=== PATIENT | male | born 1925 | race Two or more races ===

== ENCOUNTER 2017-07-13 10:49 | Inpatient (IN) | payer MEDICARE, OTHER ==
[~2017-07-13] VITALS: Ht 165.1 cm; Wt 58.2 kg
[2017-07-13] MEDS ORDERED: morphine 2 MG INJ IV ONE (11:00)
[2017-07-13] MEDS ORDERED: ONDANSETRON 4 MG INJ IV ONE (11:00)
--- NOTE | 2017-07-13 11:21 | RADRPT ---
PROCEDURE: Chest x-ray CLINICAL INDICATION: Trauma TECHNIQUE: Chest single view COMPARISON: None FINDINGS: The heart is normal in size. The pulmonary vessels are normal in caliber. There is slight enlargem ent and lobulation of the aortic knob which may suggest aneurysmal dilatation. There is abnormal wid ening of the superior mediastinum which in the setting of trauma may suggest mediastinal hematoma. A denopathy or mass is not excluded. Recommend chest CT for further evaluation. Lungs are clear. No pn eumothorax is seen. Costophrenic angles are sharp. Bony thorax is unremarkable. IMPRESSION: 1. Slight prominence of the aortic knob with mild lobulation. This may suggest aneurysmal dilatatio n or traumatic injury.. 2. Widening of the superior mediastinum in the setting of trauma may suggest mediastinal hematoma.. 3. Recommend chest CT for further evaluation 4. Lungs grossly clear. Call report was made to Dr. Cisneros on 07/13/2017 11:18:20 AM RPTAT: HH .Jimbo Myrick MD, Date Time Electronically viewed and signed by .Jimbo Myrick MD, on 07/13/2017 11:20 .W/
[2017-07-13 11:27] LABS: BASOPHILS % 0.4 % (0.0-2.0); EOSINOPHILS # 0.1 10^3/ul (0.0-0.5); EOSINOPHILS % 0.4 % (0.0-7.0); HEMATOCRIT 34.3 % (42.0-52.0); HEMOGLOBIN 10.6 g/dl (14.0-18.0); LYMPHOCYTES # 0.8 10^3/ul (0.8-2.9); LYMPHOCYTES % 7.1 % (15.0-51.0); MEAN CORPUSCULAR HGB CONC 30.9 g/dl (32.0-37.0); MEAN CORPUSCULAR VOLUME 97.2 fl (82.0-101.0); MEAN PLATELET VOLUME 10.2 fl (7.4-10.4); MONOCYTE # 0.9 10^3/ul (0.3-0.9); MONOCYTES % 8.1 % (0.0-11.0); NEUTROPHIL # 9.3 10^3/ul (1.6-7.5); NEUTROPHILS % 83.6 % (39.0-77.0); PLATELET COUNT 327 10^3/UL (140-415); RED BLOOD COUNT 3.53 10^6/ul (4.70-6.10); RED CELL DISTRIBUTION WIDTH 15.7 % (11.5-14.5); WHITE BLOOD COUNT 11.1 10^3/ul (4.8-10.8)
[2017-07-13 11:46] LABS: CALCIUM 8.9 mg/dl (8.4-10.2); CREATININE 3.69 mg/dl (0.61-1.24)
--- NOTE | 2017-07-13 11:48 | RADRPT ---
PROCEDURE: CT Brain without contrast. CLINICAL INDICATION: Headaches status post trauma TECHNIQUE: A CT of the brain was performed on a GE CT scanner utilizing axial imaging from the sku ll base through the vertex without IV contrast. Multiplanar reformatted images were made. Images w ere reviewed on a PACS workstation. The CTDIvol is 43.27 mGy and the DLP is 720.23 mGycm. DICOM im ages are available. One of the following 3 dose reduction techniques were used during this CT examination: 1) Automated exposure control 2) Adjustment of the mA +/- kV according to patient size or 3) Use of iterative reconstruction technique COMPARISON: None available FINDINGS: There is no intracranial hemorrhage, mass effect, or midline shift. No extra-axial fluid collection is seen. The ventricles and sulci are age appropriate compatible with mild to moderate diffuse volu me loss. Confluent wedge-shaped decreased attenuation is noted in the right posterior frontal and pa rietal convexity compatible with a chronic infarct. Confluent decreased attenuation is noted in the bilateral subcortical white matter, centrum semiovale, periventricular white matter and bilateral in sula compatible with moderate chronic microvascular ischemic disease. Hypo density is present in the bilateral basal ganglia compatible with chronic bilateral lacunar infarcts. Mild vascular calcifica tions are present of the intracranial internal carotid arteries. Moderate ventriculomegaly is presen t without evidence for acute hydrocephalus and most compatible with central volume loss. The visualized scalp is remarkable for a small left frontal scalp hematoma without underlying fractu res. The visualized orbits demonstrate prior lens replacement. The bilateral paranasal sinuses, mast oid air cells and middle ear cavities are clear. IMPRESSION: 1. No evidence of acute intracranial hemorrhage, infarcts, or acute intracranial pathology. 2. 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 3. Mild to moderate diffuse volume loss 4. Mild atherosclerotic vascular disease 5. Small left frontal hematoma without underlying fracture RPTAT: HDC .Peace Chaves MD, MD Date Time Electronically viewed and signed by .Peace Chaves MD, on 07/13/2017 11:48 .C/
[2017-07-13 12:02] LABS: PARTIAL THROMBOPLASTIN TIME 30.9 Sec (25.0-35.0); PROTIME 13.2 Sec (12.2-14.2)
--- NOTE | 2017-07-13 12:03 | RADRPT ---
PROCEDURE: CT cervical spine without contrast. CLINICAL INDICATION: Neck trauma/injury, fall TECHNIQUE: CT of the cervical spine without contrast was performed on a multidetector CT scanner, w ith multiplanar reformats. One or more of the following dose reduction techniques were used: Automa jim exposure control, adjustment in mA and / or kV according to patient size, use of iterative recon structive technique. CTDIvol = 22 mGy and DLP = 568 mGy-cm. DICOM images are available. COMPARISON: None available. FINDINGS: There is generalized osteopenia. No fracture or dislocation is identified. There is straightening o f the lordosis of the cervical spine. There is mild grade 1 anterolisthesis at C7-T1, and trace ret rolisthesis is seen at C3-4. Vertebral bodies are grossly maintained in height. There are anterior atlantoaxial joint degenerative changes, and anterior osteophytes with severe disc space narrowing a t C3-4 through C6-7. Additional findings by levels: C2-3: Small central disc protrusion and facet arthropathy without significant central canal stenosis or foraminal narrowing identified. C3-4: Posterior disk/osteophyte with moderate central canal stenosis identified. Uncovertebral oste ophytes and facet arthropathy with mild right, mild-moderate left foraminal narrowing. C4-5: Posterior disk/osteophyte with mild to moderate central canal stenosis identified. Uncoverte bral osteophytes and facet arthropathy without foraminal narrowing identified. C5-6: Posterior disk/osteophyte with mild central canal stenosis identified. Uncovertebral osteoph ytes and facet arthropathy with mild left foraminal narrowing. C6-7: Posterior disk/osteophyte with mild central canal stenosis identified. Uncovertebral osteop hytes and facet arthropathy with mild-moderate right, severe left foraminal narrowing. C7-T1: Facet arthropathy. No central canal stenosis or foraminal narrowing identified. IMPRESSION: 1. No fracture/dislocation identified. 2. Advanced cervical spondylosis/degenerative enthesopathy as described above with mild grade 1 ant erolisthesis at C7-T1. 3. Moderate central canal stenosis at C3-4, mild to moderate central canal stenosis at C4-5 and mil d central stenosis at C5-6 and C6-7. 4. Multilevel foraminal narrowing detailed above. 5. Osteopenia. RPTAT: VV .Cornell Stokes MD, MD Date Time Electronically viewed and signed by .Cornell Stokes MD, on 07/13/2017 12:03 .O/
--- NOTE | 2017-07-13 12:04 | RADRPT ---
PROCEDURE: CT PELVIS WITHOUT CONTRAST CLINICAL INDICATION: Fall with left hip pain. TECHNIQUE: CT scan of pelvis was performed on a multi -slice scanner. No IV contrast was administ ered. Coronal and sagittal reformatted images were obtained from the axial source images. The tota l exam DLP equals 218 mGy-cm. The CDTI volume was 6 mGy. Images were reviewed on a high-resolution [employer] workstation. DICOM images are available. One or more of the following dose reduction techniques were used: Automated exposure control Adjustment of the mA and/or kV according to patient size. Use of iterative reconstruction technique. COMPARISON: None. FINDINGS: There is a mild to moderately displaced comminuted impacted subcapital fracture of the left femoral neck with varus angulation and superior migration of the distal fracture fragment. There is mild to moderate joint space narrowing of the left hip with osseous spurring. There is a moderate joint effu migue within the left hip. There is no acute fracture or dislocation of the right hip. Mild to moderate joint space narrowing a nd osseous spurring of the right hip is also present. The pubic symphysis is intact with mild osseous spurring. The superior and inferior pubic rami are i ntact. There is mild osseous spurring and joint space narrowing of the bilateral sacroiliac joints. The sac rum and coccyx are intact. There is degenerative disc disease within the lower lumbar spine more prominent at L4-L5 and L5-S1 w ith disc osteophytes. There is mild soft tissue stranding around the left hip with enlargement and soft tissue stranding w ithin the quadratus femoris muscle from edema. There is a small amount of fluid and soft tissue stra nding within the left greater trochanteric bursa. There is mild fatty atrophy of the gluteal muscles around both hips and pelvis. There is a partially visualized very large abdominal aortic aneurysm with an aortoiliac stent graft. The aneurysm measures up to 8.5 cm AP and 10.0 cm transverse. There is no significant surrounding s oft tissue stranding. There are atherosclerotic calcifications/plaque throughout the aorta and its b ranches. A moderate amount of stool is noted throughout the colon, more prominent within the rectosi gmoid colon with diverticula within the lower descending and sigmoid colon. The prostate is mildly p rominent with wall thickening of the bladder. No lymphadenopathy is visualized within the pelvis. Th ere is a fat containing right inguinal hernia. RPTAT: ZZ IMPRESSION: 1. Mild to moderately displaced comminuted impacted subcapital fracture of the left femoral neck. Mo derate joint effusion within the left hip. 2. Mild to moderate osteoarthrosis of both hips. 3. Massively enlarged abdominal aortic aneurysm with an aortoiliac stent graft, partially visualized . Comparison with prior studies and a follow-up CT angiogram of the aorta are recommended for additi onal evaluation. .Sana Coleman MD, MD Date Time Electronically viewed and signed by .Sana Coleman MD, MD on 07/13/2017 12:04 .T/
[2017-07-13] MEDS ORDERED: CARSR60 PO (12:41)
[2017-07-13] MEDS ORDERED: LISI10TA2 PO (12:42)
[2017-07-13] MEDS ORDERED: DOCU-144 PO (12:43)
[2017-07-13] MEDS ORDERED: MECL-77 PO (12:44)
[2017-07-13] MEDS ORDERED: FURO20TA3 PO (12:44)
[2017-07-13] MEDS ORDERED: SIMV40TA2 PO (12:45)
[2017-07-13] MEDS ORDERED: CARB1TAB42 PO (12:45)
[2017-07-13] MEDS ORDERED: TAMS0.4C2 PO (12:50)
[2017-07-13] MEDS ORDERED: BUPR150T18 PO (12:51)
[2017-07-13] MEDS ORDERED: DEXL60CA2 PO (12:52)
[2017-07-13] MEDS ORDERED: ACT35 PO (12:52)
[2017-07-13] MEDS ORDERED: MEMA28CA PO (12:52)
[2017-07-13] MEDS ORDERED: METO-335 PO (12:52)
[2017-07-13] MEDS ORDERED: ONDANSETRON 4 MG INJ IV PRN ×2 (13:00→14:30)
[2017-07-13] MEDS ORDERED: ACETAMINOPHEN 325 MG TAB PO PRN ×2 (13:00→14:30)
--- NOTE | 2017-07-13 13:00 | RADRPT ---
PROCEDURE: CT chest without contrast. CLINICAL INDICATION: Abnormal chest x-ray demonstrates a right mediastinum TECHNIQUE: CT scan of the chest without contrast was performed on a multi-slice CT scanner. The p atient was scanned without administration of intravenous contrast. Coronal and sagittal reformatted images were obtained from the axial source images. One or more of the following dose reduction techniques were used: Automated exposure control. Adjustment of the mA and/or kV according to patient size. Use of iterative reconstruction technique. DICOM images are available DLP vol 481.8 mGy CTDI 12.07 mGy-cm COMPARISON: Chest x-ray 07/13/2017 FINDINGS: Pronounced diffuse atherosclerotic calcifications are seen involving the aorta. The aortic root is e nlarged measuring up to 4.1 cm in the greatest AP dimension. The ascending aorta is ectatic measurin g 3.8 cm. The posterior aortic arch demonstrates an area of focal mild aneurysmal enlargement measur ing 3.2 cm. The descending thoracic aorta is borderline enlarged measuring 3 cm with tortuosity. Kita luation for any internal luminal abnormalities is limited without IV contrast. There is dolichoectas ia of the bilateral subclavian arteries. There is partial visualization of an aortic stent graft ext ending into an abdominal aortic aneurysm is partially visualized and measures up to 7.9 cm in the gr eatest AP dimension on the images included. There is no visible abnormal mediastinal or pericardial fluid to suggest hemorrhage. Emphysema is seen in the lungs with areas of subpleural scarring. There is mild bibasilar atelectasi s with basilar septal thickening and trace ground-glass. The airways are patent. There are no enlarged axillary or mediastinal lymph nodes. The kidneys are diminutive with the presence of renal cysts. There is a fecal filled colon. Degenera tive changes are seen within the thoracic spine and shoulders with no acute osseous abnormality. IMPRESSION: Diffuse atherosclerotic changes are seen with aneurysmal enlargement of the aortic root, posterior a ortic arch, and descending thoracic aorta, and there is a large abdominal aortic aneurysm is only pa rtially visualized. An aortic stent graft is seen in the upper abdomen. No inflammatory changes seen around the aorta within the mediastinum or upper abdomen and intraluminal abnormalities of the aort a cannot be fully assessed without IV contrast. Emphysema is present. Mild basilar atelectasis and likely mild pulmonary edema is also present. Fecal filled colon. Renal atrophy is present. Atherosclerotic disease is present. RPTAT: AA .Alisia Juarez MD, MD Date Time Electronically viewed and signed by .Alisia Juarez MD, MD on 07/13/2017 13:00 .J/
--- NOTE | 2017-07-13 13:41 | ERD ---
ER Documentation Chief Complaint Chief Complaint LEFT HIP PAIN AFTER MECHANICAL FALL HPI This is an 89-year-old gentleman with Algerian speaking. An historic interpreter was used. The patient states that he fell off a couch just prior to arrival. He denies hitting his head or losing consciousness. The patient is complaining of 8 out of 10 throbbing left leg pain with difficulty moving secondary to pain. He denies any prodrome of chest pain or shortness of breath, no abdominal pain or back pain. ROS All systems reviewed and are negative except as per history of present illness. Medications Home Meds Reported Medications Memantine* (Namenda* XR) 28 Mg Cap.spr.24, 28 MG PO DAILY, #30 TAB 07/13/17 Risedronate* (Actonel*) 35 Mg Tablet, 35 MG PO Q7D, #4 TAB 07/13/17 Dexlansoprazole (Dexilant) 60 Mg Cap.drAnamariamp, 60 MG PO DAILY, #30 CAP 07/13/17 Metoprolol Succinate* (Toprol XL*) 25 Mg Tab.sr.24h, 25 MG PO DAILY, #30 TAB 07/13/17 Bupropion Hcl* (Bupropion Hcl SR*) 150 Mg Tablet.er, 150 MG PO DAILY, TAB.SA 07/13/17 Tamsulosin Hcl* (Tamsulosin Hcl*) 0.4 Mg Cap.er.24h, 0.4 MG PO HS, CAP 07/13/17 Carbidopa/Levodopa (Carbidopa-Levo ER 25-100 Tab) 1 Each Tablet.er, 1 TAB PO QID , #90 07/13/17 Simvastatin* (Zocor*) 40 Mg Tablet, 40 MG PO QHS, #30 TAB 07/13/17 Furosemide* (Furosemide*) 20 Mg Tablet, 20 MG PO DAILY, #60 TAB 07/13/17 Meclizine Hcl* (Meclizine Hcl*) 25 Mg Tablet, 25 MG PO TID, TAB 07/13/17 Docusate Sodium* (Colace*) 100 Mg Capsule, 100 MG PO BID, #60 CAP 07/13/17 Lisinopril* (Lisinopril*) 10 Mg Tablet, 10 MG PO DAILY, #30 TAB 07/13/17 Diltiazem Hcl* (Cardizem SR*) 60 Mg Capsr, 30 MG PO DAILY, #60 CAP 07/13/17 Allergies Allergies: Coded Allergies: No Known Allergy (Unverified , 07/13/17) PMhx/Soc History of Surgery: No Anesthesia Reaction: No Hx Neurological Disorder: No Hx Respiratory Disorders: No Hx Cardiac Disorders: Yes (STENT PLACEMENT, MORE THAN 5 YEARS AGO.) Hx Psychiatric Problems: No Hx Miscellaneous Medical Probl: No Hx Alcohol Use: Yes Hx Substance Use: No Hx Tobacco Use: No Smoking Status: Never smoker FmHx Family History: No diabetes Physical Exam Vitals Vital Signs Date Time Temp Pulse Resp B/P Pulse Ox O2 Delivery O2 Flow Rate FiO2 07/13/17 10:59 98.0 121 18 159/98 99 Physical Exam Airway is intact Bilateral breath sounds Strong distal pulses No obvious deficits General: Well developed, well nourished, no acute distress Head: Normocephalic, atraumatic Eyes: Pupils equally reactive, EOM intact ENT: Moist mucous membranes Neck: Supple, no lymphadenopathy, No midline tenderness, deformities, step-offs to the cervical spine, full active and passive range of motion without midline pain. Respiratory: Lungs clear bilaterally, no distress, no chest wall tenderness, no crepitus Cardiovascular: RRR, no murmurs, rubs, or gallops Abdominal: Soft, non-tender, non-distended, no peritoneal signs, pelvis is stable : Deferred MSK: Left lower extremity is shortened and slightly externally rotated with pain with internal and external rotation soft tissue tenderness to the left hip. Neurovascular intact distally., no midline tenderness deformities or step- offs to the thoracolumbar spine Neurologic: Alert and oriented, moving all extremities, normal speech, no focal weakness, no cerebellar signs Skin: No ecchymoses or bruising to the chest or abdomen Psych: Normal mood Result Diagram: 07/13/17 1115 07/13/17 1115 Results 24 hrs Laboratory Tests Test 07/13/17 11:15 White Blood Count 11.110^3/ul Red Blood Count 3.5310^6/ul Hemoglobin 10.6g/dl Hematocrit 34.3% Mean Corpuscular Volume 97.2fl Mean Corpuscular Hemoglobin 30.0pg Mean Corpuscular Hemoglobin Concent 30.9g/dl Red Cell Distribution Width 15.7% Platelet Count 62005^3/UL Mean Platelet Volume 10.2fl Neutrophils % 83.6% Lymphocytes % 7.1% Monocytes % 8.1% Eosinophils % 0.4% Basophils % 0.4% Nucleated Red Blood Cells % 0.0/100WBC Neutrophils # 9.310^3/ul Lymphocytes # 0.810^3/ul Monocytes # 0.910^3/ul Eosinophils # 0.110^3/ul Basophils # 0.010^3/ul Nucleated Red Blood Cells # 0.010^3/ul Prothrombin Time 13.2Sec Prothrombin Time Ratio 1.0 INR International Normalized Ratio 1.00 Activated Partial Thromboplast Time 30.9Sec Sodium Level 146mmol/L Potassium Level 3.0mmol/L Chloride Level 108mmol/L Carbon Dioxide Level 21mmol/L Anion Gap 20 Blood Urea Nitrogen 48mg/dl Creatinine 3.69mg/dl Glucose Level 153mg/dl Calcium Level 8.9mg/dl Current Medications Medications (Trade) Dose Ordered Sig/Sara Route PRN Reason Start Time Stop Time Status Last Admin Dose Admin Morphine Sulfate (morphine) 4 mg ONCE ONCE IV 07/13/17 11:00 07/13/17 11:01 DC 07/13/17 11:21 Ondansetron HCl (Zofran Inj) 4 mg ONCE ONCE IV 07/13/17 11:00 07/13/17 11:01 DC 07/13/17 11:22 Ondansetron HCl (Zofran Inj) 4 mg BRIDGE ORDER PRN IV NAUSEA AND/OR VOMITING 07/13/17 13:00 07/14/17 12:59 Acetaminophen (Tylenol Tab) 650 mg ER BRIDGE PRN PO MILD PAIN/FEVER 07/13/17 13:00 07/14/17 12:59 Procedures/MDM EKG, MONITORS, & DIAGNOSTIC IMAGING: EKG: I reviewed and interpreted a 12-lead EKG. Rhythm: Normal sinus rhythm Ectopy: None Intervals: No abnormalities ST segments: No elevations or depressions T waves: No contiguous inversions Chest x-ray: I reviewed and interpreted a 1 view of the chest Mediastinum: No enlargement Cardiac silhouette: No cardiomegaly Airspace: Clear lung chi bilaterally without evidence of pneumothorax Bones: No evidence of fracture CT pelvis IMPRESSION: 1. Mild to moderately displaced comminuted impacted subcapital fracture of the left femoral neck. Moderate joint effusion within the left hip. 2. Mild to moderate osteoarthrosis of both hips. 3. Massively enlarged abdominal aortic aneurysm with an aortoiliac stent graft, partially visualized. Comparison with prior studies and a follow-up CT angiogram of the aorta are recommended for additional evaluation. CT C spine IMPRESSION: 1. No fracture/dislocation identified. 2. Advanced cervical spondylosis/degenerative enthesopathy as described above with mild grade 1 anterolisthesis at C7-T1. 3. Moderate central canal stenosis at C3-4, mild to moderate central canal stenosis at C4-5 and mild central stenosis at C5-6 and C6-7. 4. Multilevel foraminal narrowing detailed above. 5. Osteopenia. CT brain IMPRESSION: 1. No evidence of acute intracranial hemorrhage, infarcts, or acute intracranial pathology. 2. 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 3. Mild to moderate diffuse volume loss 4. Mild atherosclerotic vascular disease 5. Small left frontal hematoma without underlying fracture CT chest IMPRESSION: Diffuse atherosclerotic changes are seen with aneurysmal enlargement of the aortic root, posterior aortic arch, and descending thoracic aorta, and there is a large abdominal aortic aneurysm is only partially visualized. An aortic stent graft is seen in the upper abdomen. No inflammatory changes seen around the aorta within the mediastinum or upper abdomen and intraluminal abnormalities of the aorta cannot be fully assessed without IV contrast. Emphysema is present. Mild basilar atelectasis and likely mild pulmonary edema is also present. Fecal filled colon. Renal atrophy is present. Atherosclerotic disease is present. RPTAT: AA LAB INTERPRETATION: No significant leukocytosis, creatinine of 3.69, unknown baseline. No hyperkalemia. MEDICAL DECISION MAKING: The patient presents with clear mechanical fall. No evidence of seizure stroke or syncope. The patient has apparent left hip fracture. Patient will benefit from diagnostic imaging. The patient is unsure if he hit his head and his elderly CT imaging of the head and cervical spine would be reasonable. ER COURSE: The patient's laboratory testing reveals renal insufficiency, unknown baseline. No hyperkalemia. The patient's CT shows evidence of left hip fracture. Orthopedic surgery notified. Patient given pain medication. The patient has incidental finding of slight wide mediastinum on chest x-ray. There is no blunt trauma. I am not concerned for dissection. The patient has no chest pain and no back pain. This is likely subacute and incidental. CT imaging does confirm an abdominal aortic aneurysm that is status post repair. No evidence of leak. The patient has no hypotension and no clinical signs of ruptured aneurysm or dissection. I kept the patient and/or family informed of laboratory and diagnostic imaging results throughout the emergency room course. DISPOSITION PLAN: Medical surgical admission for management of closed left hip fracture CONSULTATION: Accepting care team and consultations: I discussed the current laboratory data, diagnostic imaging and emergency care provided. Admitting team: Dr. Daniels Admitting team indication: Insurance directed Consulting services: Dr. Lilly, orthopedic surgery Departure Diagnosis: Primary Impression: Closed left hip fracture Encounter type: initial encounter Qualified Code: S72.002A - Closed fracture of left hip, initial encounter Additional Impressions: Abdominal aortic aneurysm Presence of rupture: without rupture Qualified Code: I71.4 - Abdominal aortic aneurysm (AAA) without rupture Renal insufficiency Condition: Stable SERGIO COMBS MD Jul 13, 2017 13:41
[2017-07-13] MEDS ORDERED: morphine 2 MG INJ IV STA (14:03)
[2017-07-13 14:04] VITALS: BP 176/122; RESP 22
[2017-07-13 14:26] VITALS: Ht 165.1 cm; Wt 58.2 kg
[2017-07-13] MEDS ORDERED: MAGNESIUM HYDROXIDE 30ML CUP PO PRN (14:30)
[2017-07-13] MEDS ORDERED: NACL 0.9% 3 ML SYG IV SCH (14:30)
[2017-07-13] MEDS ORDERED: hydrALAzine 20 MG INJ IV PRN (14:30)
[2017-07-13] MEDS ORDERED: DOCUSATE SODIUM 100 MG CAP PO PRN (14:30)
[2017-07-13] MEDS: D5W-0.45 NACL + KCL 20 MEQ 1,000 ML IV SCH (15:04)
--- NOTE | 2017-07-13 15:22 | HP ---
Date/Time of Note Date/Time of Note DATE: 07/13/17 TIME: 15:19 Assessment/Plan VTE Prophylaxis VTE Prophylaxis Intervention: heparin Lines/Catheters IV Catheter Type (from Nrsg): Peripheral IV Assessment/Plan Chief Complaint/Hosp Course 1. Left hip fracture Dr. Lilly of orthopedics aware Pain control 2. Hypertension Hydralazine as needed Home meds 3. Parkinson's with dementia Continue home meds 4. BPH Continue Flomax Prophylaxis: Heparin Problems: HPI/ROS Admit Date/Time Admit Date/Time Jul 13, 2017 at 12:45 Hx of Present Illness Patient is an 89-year-old Korean speaking with a history of dementia, Parkinson's, hypertension, patient fell off a couch none reported left leg pain and difficulty moving his leg secondary to pain. Patient denies hitting his head or lose consciousness, patient is unable to provide history and history is obtained from ER physician. KLAUS Poor historian PMH/Family/Social Past Medical History As per HPI Social History Smoking Status: Former smoker Exam/Review of Systems Vital Signs Vitals Vital Signs Date Time Temp Pulse Resp B/P Pulse Ox O2 Delivery O2 Flow Rate FiO2 07/13/17 14:04 98.0 139 22 176/122 94 Exam Psych: confusion Respiratory: clear to auscultation Cardiovascular: regular rate and rhythm Gastrointestinal: soft, No distended Musculoskeletal: nl extremities to inspection Labs Result Diagram: 07/13/17 1115 07/13/17 1115 Medications Medications Current Medications Potassium Chloride/Dextrose/ Sod Cl (D5-1/2ns + KCl 20 Meq) 1,000 ml @ 80 mls/ hr [id number] IV Last administered on 07/13/17t 15:04; Admin Dose 80 MLS/HR; Start 07/13/17 at 14:02 Ondansetron HCl (Zofran Inj) 4 mg Q6H PRN IV NAUSEA AND/OR VOMITING; Start at 14:30 Acetaminophen (Tylenol Tab) 650 mg Q6H PRN PO PAIN LEVEL 1-3 OR FEVER; Start 07/13/17 at 14:30 Acetaminophen/ Hydrocodone Bitart ([place] (5/325)) 1 tab Q6H PRN PO MODERATE PAIN LEVEL 4-6; Start 07/13/17 at 14:30 Morphine Sulfate (morphine) 2 mg Q4H PRN IV SEVERE PAIN LEVEL 7-10; Start at 14:30 Docusate Sodium (Colace) 100 mg Q12H PRN PO CONSTIPATION; Start 07/13/17 at 14 :30 Magnesium Hydroxide (Milk Of Mag) 30 ml DAILY PRN PO CONSTIPATION; Start 07/13 at 14:30 Heparin Sodium (Porcine) (Heparin (5000 Units/0.5 ml)) 5,000 unit Q12 SC ; Start 07/13/17 at 21:00 Hydralazine HCl (Apresoline) 10 mg Q4H PRN IV SBP>170; Start 07/13/17 at 14:30 BARRERA MEYER Jul 13, 2017 15:22
[2017-07-13] MEDS: METOPROLOL (XL) 25 MG TAB PO SCH (15:30)
[2017-07-13] MEDS ORDERED: RISEDRONATE 35 MG TAB PO SCH (15:30)
[2017-07-13] MEDS: LISINOPRIL 10 MG TAB PO SCH (15:30)
[2017-07-13] MEDS: CARBIDOPA/LEVODOPA 25-100 (CR) TAB PO SCH ×2 (16:14→21:00)
[2017-07-13 19:24] VITALS: BP 145/92; RESP 20
[2017-07-13 20:30] VITALS: BP 154/86; RESP 16
[2017-07-13 20:48] VITALS: PULSE 100
[2017-07-13] MEDS ORDERED: METOPROLOL 25 MG TAB PO ONE (21:30)
[2017-07-13] MEDS: DOCUSATE SODIUM 100 MG CAP PO SCH (23:19)
[2017-07-13] MEDS: MEMANTINE 10 MG TAB PO SCH (23:19)
[2017-07-13] MEDS: TAMSULOSIN (SR) 0.4 MG CAP PO SCH (23:20)
[2017-07-13] MEDS: ATORVASTATIN 20 MG TAB PO SCH (23:20)
[2017-07-13] MEDS: HEPARIN 5,000 UNIT/0.5 ML VIAL SC SCH (23:38)
[2017-07-14] VITALS (13 sets, daily range): BP systolic 118–178; BP diastolic 69–100; PULSE 90–140; RESP 16–20
[2017-07-14] MEDS: morphine 2 MG INJ IV PRN ×3 (00:08→11:14)
[2017-07-14] MEDS: D5W-0.45 NACL + KCL 20 MEQ 1,000 ML IV SCH ×2 (01:50→15:02)
[2017-07-14 07:36] LABS: ABNORMAL IP MESSAGE 1; BASOPHILS % 0.2 % (0.0-2.0); EOSINOPHILS # 0.1 10^3/ul (0.0-0.5); HEMATOCRIT 31.9 % (42.0-52.0); HEMOGLOBIN 9.9 g/dl (14.0-18.0); LYMPHOCYTES # 1.2 10^3/ul (0.8-2.9); LYMPHOCYTES % 9.5 % (15.0-51.0); MEAN CORPUSCULAR HEMOGLOBIN 30.7 pg (29.0-33.0); MEAN CORPUSCULAR VOLUME 99.1 fl (82.0-101.0); MEAN PLATELET VOLUME 10.4 fl (7.4-10.4); MONOCYTE # 1.5 10^3/ul (0.3-0.9); MONOCYTES % 12.3 % (0.0-11.0); NEUTROPHIL # 9.6 10^3/ul (1.6-7.5); NEUTROPHILS % 76.7 % (39.0-77.0); PLATELET COUNT 252 10^3/UL (140-415); POSITIVE DIFF @See below; RED BLOOD COUNT 3.22 10^6/ul (4.70-6.10); RED CELL DISTRIBUTION WIDTH 15.8 % (11.5-14.5); WHITE BLOOD COUNT 12.5 10^3/ul (4.8-10.8)
[2017-07-14 07:50] LABS: CREATININE 3.25 mg/dl (0.61-1.24); MAGNESIUM 2.2 mg/dl (1.7-2.5); PHOSPHORUS 3.7 mg/dl (2.5-4.9); POTASSIUM 3.5 mmol/L (3.5-5.1)
[2017-07-14] MEDS: MEMANTINE 10 MG TAB PO SCH ×2 (09:00→21:25)
[2017-07-14] MEDS: FUROSEMIDE 20 MG TAB PO SCH (09:00)
[2017-07-14] MEDS: LISINOPRIL 10 MG TAB PO SCH (09:00)
[2017-07-14] MEDS: BUPROPION (SR) 150 MG TAB PO SCH (09:00)
[2017-07-14] MEDS: CARBIDOPA/LEVODOPA 25-100 (CR) TAB PO SCH ×4 (09:00→21:25)
[2017-07-14] MEDS: METOPROLOL (XL) 25 MG TAB PO SCH (09:00)
[2017-07-14] MEDS: PANTOPRAZOLE (EC) 40 MG TAB PO SCH (09:00)
[2017-07-14] MEDS: DOCUSATE SODIUM 100 MG CAP PO SCH ×2 (09:00→21:25)
[2017-07-14] MEDS: HEPARIN 5,000 UNIT/0.5 ML VIAL SC SCH ×2 (09:59→21:40)
--- NOTE | 2017-07-14 13:40 | PN ---
Date/Time of Note Date/Time of Note DATE: 07/14/17 TIME: 13:39 Assessment/Plan VTE Prophylaxis VTE Prophylaxis Intervention: heparin Lines/Catheters IV Catheter Type (from Nrsg): Peripheral IV Urinary Cath still in place: No Assessment/Plan Chief Complaint/Hosp Course 1. Left hip fracture Dr. Lilly of orthopedics aware Pain control 2. Hypertension Hydralazine as needed Home meds 3. Parkinson's with dementia Continue home meds 4. BPH Continue Flomax Prophylaxis: Heparin Problems: Subjective 24 Hr Interval Summary Subjective hx not possible: pt non-verbal Exam/Review of Systems Vital Signs Vitals Vital Signs Date Time Temp Pulse Resp B/P Pulse Ox O2 Delivery O2 Flow Rate FiO2 07/14/17 12:02 104 07/14/17 11:35 98.8 20 137/85 97 Exam Constitutional: non-verbal Respiratory: clear to auscultation Cardiovascular: regular rate and rhythm Gastrointestinal: soft, No distended Musculoskeletal: nl extremities to inspection Results Result Diagram: 07/14/17 0653 07/14/17 0654 Results 24 hrs Laboratory Tests Test 07/14/17 06:53 07/14/17 06:54 White Blood Count 12.5 H Red Blood Count 3.22 L Hemoglobin 9.9 L Hematocrit 31.9 L Mean Corpuscular Volume 99.1 Mean Corpuscular Hemoglobin 30.7 Mean Corpuscular Hemoglobin Concent 31.0 L Red Cell Distribution Width 15.8 H Platelet Count 252 # Mean Platelet Volume 10.4 Neutrophils % 76.7 Lymphocytes % 9.5 L Monocytes % 12.3 H Eosinophils % 1.0 Basophils % 0.2 Nucleated Red Blood Cells % 0.0 Neutrophils # 9.6 H Lymphocytes # 1.2 Monocytes # 1.5 H Eosinophils # 0.1 Basophils # 0.0 Nucleated Red Blood Cells # 0.0 Hemoglobin A1c 5.2 Sodium Level 143 Potassium Level 3.5 Chloride Level 112 H Carbon Dioxide Level 18 L Anion Gap 17 H Blood Urea Nitrogen 44 H Creatinine 3.25 H Glucose Level 131 Calcium Level 8.0 L Phosphorus Level 3.7 Magnesium Level 2.2 Triglycerides Level 83 Cholesterol Level 184 LDL Cholesterol, Calculated 106 HDL Cholesterol 61 Cholesterol/HDL Ratio 3.0 Medications Medications Current Medications Potassium Chloride/Dextrose/ Sod Cl (D5-1/2ns + KCl 20 Meq) 1,000 ml @ 80 mls/ hr [id number] IV Last administered on 07/14/17 01:50; Admin Dose 80 MLS/HR; Start 07/13/17 at 14:02 Ondansetron HCl (Zofran Inj) 4 mg Q6H PRN IV NAUSEA AND/OR VOMITING; Start at 14:30 Acetaminophen (Tylenol Tab) 650 mg Q6H PRN PO PAIN LEVEL 1-3 OR FEVER; Start 07/13/17 at 14:30 Acetaminophen/ Hydrocodone Bitart ([place] (5/325)) 1 tab Q6H PRN PO MODERATE PAIN LEVEL 4-6; Start 07/13/17 at 14:30 Morphine Sulfate (morphine) 2 mg Q4H PRN IV SEVERE PAIN LEVEL 7-10 Last administered on 07/14/17 11:14; Admin Dose 2 MG; Start 07/13/17 at 14:30 Docusate Sodium (Colace) 100 mg Q12H PRN PO CONSTIPATION; Start 07/13/17 at 14 :30 Magnesium Hydroxide (Milk Of Mag) 30 ml DAILY PRN PO CONSTIPATION; Start 07/13 at 14:30 Heparin Sodium (Porcine) (Heparin (5000 Units/0.5 ml)) 5,000 unit Q12 SC Last administered on 07/14/17 09:59; Admin Dose 5,000 UNIT; Start 07/13/17 at 21: 00 Hydralazine HCl (Apresoline) 10 mg Q4H PRN IV SBP>170; Start 07/13/17 at 14:30 Bupropion HCl (Wellbutrin Sr) 150 mg DAILY PO ; Start 07/14/17 at 09:00 Carbidopa/Levodopa (Sinemet Cr (25/ 100)) 1 tab QID PO ; Start 07/13/17 at 17: 00 Docusate Sodium (Colace) 100 mg BID PO Last administered on 07/13/17 23:19; Admin Dose 100 MG; Start 07/13/17 at 21:00 Furosemide (Lasix) 20 mg DAILY PO ; Start 07/14/17 at 09:00 Lisinopril (Zestril) 10 mg DAILY PO ; Start 07/13/17 at 15:30 Metoprolol Succinate (Toprol Xl) 25 mg DAILY PO ; Start 07/13/17 at 15:30 Tamsulosin HCl (Flomax) 0.4 mg HS PO Last administered on 07/13/17 23:20; Admin Dose 0.4 MG; Start 07/13/17 at 21:00 Pantoprazole (Protonix Tab) 40 mg DAILY PO ; Start 07/14/17 at 09:00 Memantine (Namenda) 10 mg BID PO Last administered on 07/13/17 23:19; Admin Dose 10 MG; Start 07/13/17 at 21:00 Atorvastatin Calcium (Lipitor) 20 mg QHS PO Last administered on 07/13/17 23: 20; Admin Dose 20 MG; Start 07/13/17 at 21:00 BARRERA MEYER Jul 14, 2017 13:40
[2017-07-14] MEDS: TAMSULOSIN (SR) 0.4 MG CAP PO SCH (21:25)
[2017-07-14] MEDS: ATORVASTATIN 20 MG TAB PO SCH (21:25)
--- NOTE | 2017-07-14 23:20 | CONS ---
DATE OF ADMISSION: 07/13/2017 DATE OF CONSULTATION: 07/14/2017 HISTORY OF PRESENT ILLNESS: Patient is an 89-year-old, [place] speaking male, with a known history of dementia, who was admitted on June, when he was brought into the emergency room because of the painful limit of motion involving his left hip. He obviously had a fall from a chair landing on his left hip. He is also known to have Parkinson's disease and hypertension in addition to dementia. PHYSICAL EXAMINATION: My examination revealed an 89-year-old male, who does not seem to be in any acute pain at this time. There was tenderness and swelling around the left hip. There was a slight shortening with abnormal external rotation of the left lower extremity. There were no signs of acute neurovascular compromise. X-RAYS: CT scan of the pelvis revealed an obvious fracture involving the neck of the left femur, which is displaced. IMPRESSION: Femoral neck fracture of the left hip. PLAN: Carry out the hemiarthroplasty of the left hip as soon as he can be medically cleared for surgery. Dictated By: In Claudette Lilly MD /soo/dg /Document#: [id number]
[2017-07-15] VITALS (13 sets, daily range): BP systolic 104–151; BP diastolic 64–83; PULSE 80–141; RESP 16–20
[2017-07-15] MEDS: D5W-0.45 NACL + KCL 20 MEQ 1,000 ML IV SCH ×3 (03:32→22:05)
--- NOTE | 2017-07-15 09:22 | CONS ---
Date/Time of Note Date/Time of Note DATE: 07/15/17 TIME: 09:18 Assessment/Plan Assessment/Plan Additional Assessment/Plan Preop Cardiac Evaluation Hip Fracture HTN CKD Sinus tachycardia -The patient with no cardaic history, no cardiac symptoms and sinus tachycardia due to possible pain and as such, MAY PROCEED TO HIP SURGERY WITH LOW CARDIAC RISK -will increase metoprolol as HR remains elevated -2decho pending -orthopedics involved -?CKD work up Consultation Date/Type/Reason Admit Date/Time Jul 13, 2017 at 12:45 Hx of Present Illness This is an 89-year-old gentleman with Yoruba speaking. The patient states that he fell off a couch just prior to arrival. He denies hitting his head or losing consciousness. He denies any prodrome of chest pain or shortness of breath, no abdominal pain or back pain. He has no cardiac history with no angina or CHF symptoms with sinus tachycardia by ekg Social History Smoking Status: Former smoker Exam/Review of Systems Vital Signs Vitals Vital Signs Date Time Temp Pulse Resp B/P Pulse Ox O2 Delivery O2 Flow Rate FiO2 07/15/17 08:08 141 07/15/17 07:01 98.6 20 132/81 98 Intake and Output 07/14/17 07/14/17 07/15/17 15:00 23:00 07:00 Intake Total 800 ml Output Total 300 ml Balance 500 ml Results Result Diagram: 07/14/17 0653 07/14/17 0654 Medications Medications Current Medications Potassium Chloride/Dextrose/ Sod Cl (D5-1/2ns + KCl 20 Meq) 1,000 ml @ 80 mls/ hr [id number] IV Last administered on 07/14/17t 15:02; Admin Dose 80 MLS/HR; Start 07/13/17 at 14:02 Ondansetron HCl (Zofran Inj) 4 mg Q6H PRN IV NAUSEA AND/OR VOMITING; Start at 14:30 Acetaminophen (Tylenol Tab) 650 mg Q6H PRN PO PAIN LEVEL 1-3 OR FEVER; Start 07/13/17 at 14:30 Acetaminophen/ Hydrocodone Bitart ([place] (5/325)) 1 tab Q6H PRN PO MODERATE PAIN LEVEL 4-6; Start 07/13/17 at 14:30 Morphine Sulfate (morphine) 2 mg Q4H PRN IV SEVERE PAIN LEVEL 7-10 Last administered on 07/14/17 11:14; Admin Dose 2 MG; Start 07/13/17 at 14:30 Docusate Sodium (Colace) 100 mg Q12H PRN PO CONSTIPATION; Start 07/13/17 at 14 :30 Magnesium Hydroxide (Milk Of Mag) 30 ml DAILY PRN PO CONSTIPATION; Start 07/13 at 14:30 Heparin Sodium (Porcine) (Heparin (5000 Units/0.5 ml)) 5,000 unit Q12 SC Last administered on 07/14/17 21:40; Admin Dose 5,000 UNIT; Start 07/13/17 at 21: 00 Hydralazine HCl (Apresoline) 10 mg Q4H PRN IV SBP>170; Start 07/13/17 at 14:30 Bupropion HCl (Wellbutrin Sr) 150 mg DAILY PO ; Start 07/14/17 at 09:00 Carbidopa/Levodopa (Sinemet Cr (25/ )) 1 tab QID PO Last administered on 21:25; Admin Dose 1 TAB; Start 07/13/17 at 17:00 Docusate Sodium (Colace) 100 mg BID PO Last administered on 07/14/17 21:25; Admin Dose 100 MG; Start 07/13/17 at 21:00 Furosemide (Lasix) 20 mg DAILY PO ; Start 07/14/17 at 09:00 Lisinopril (Zestril) 10 mg DAILY PO ; Start 07/13/17 at 15:30 Metoprolol Succinate (Toprol Xl) 25 mg DAILY PO ; Start 07/13/17 at 15:30 Tamsulosin HCl (Flomax) 0.4 mg HS PO Last administered on 07/14/17 21:25; Admin Dose 0.4 MG; Start 07/13/17 at 21:00 Pantoprazole (Protonix Tab) 40 mg DAILY PO ; Start 07/14/17 at 09:00 Memantine (Namenda) 10 mg BID PO Last administered on 07/14/17 21:25; Admin Dose 10 MG; Start 07/13/17 at 21:00 Atorvastatin Calcium (Lipitor) 20 mg QHS PO Last administered on 07/14/17 21: 25; Admin Dose 20 MG; Start 07/13/17 at 21:00 HORTENCIA TALBOT MD Jul 15, 2017 09:22
[2017-07-15] MEDS: CARBIDOPA/LEVODOPA 25-100 (CR) TAB PO SCH ×4 (09:25→20:59)
[2017-07-15] MEDS: MEMANTINE 10 MG TAB PO SCH ×2 (09:25→21:00)
[2017-07-15] MEDS: BUPROPION (SR) 150 MG TAB PO SCH (09:26)
[2017-07-15] MEDS: DOCUSATE SODIUM 100 MG CAP PO SCH ×2 (09:26→21:00)
[2017-07-15] MEDS: FUROSEMIDE 20 MG TAB PO SCH (09:26)
[2017-07-15] MEDS: PANTOPRAZOLE (EC) 40 MG TAB PO SCH (09:27)
[2017-07-15] MEDS: LISINOPRIL 10 MG TAB PO SCH (09:27)
[2017-07-15] MEDS: HEPARIN 5,000 UNIT/0.5 ML VIAL SC SCH ×2 (09:31→21:00)
--- NOTE | 2017-07-15 09:51 | RADRPT ---
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 Physician: BARRERA MEYER Quality: Technically Difficult Study Procedures: Transthoracic echocardiogram with 2D, M-Mode, and Doppler examination, no subcostal images. Indications: Pre-op. 2D/M Mode Doppler Measurement Value Normal Ranges Measurement Value Normal Ranges AoR Diam MM 3.6 cm AV Peak Raf 1.4 m/sec ACS MM 1.8 cm AV Peak PG 8.4 mmHg LVIDd 2D 3.2 3.5 - 5.6 cm LVOT Peak Raf 1.3 m/sec LVIDs 2D 2.4 2.1 - 4.1 cm LVOT Peak PG 6.7 mmHg LVPWd 2D 1.4 0.6 - 1.1 cm MV E Peak Raf 0.6 m/sec IVSd 2D 1.7 0.6 - 1.1 cm MV A Peak Raf 1.2 m/sec EDV 2D 39.9 cm3 MV E/A 0.5 ESV 2D 13.1 cm3 MV Decel Time 179 msec LA Dimen 2D 2.8 2.3 - 4.0 cm MV Decel [place] 3 MV E/A 0.5 Findings Left Ventricle: Overall, normal left ventricular systolic function. Not all segments visualized. Normal left ventricular cavity size. Moderate concentric left ventricular hypertrophy. Ejection fraction is visually estimated at 55 %. Tissue Doppler/Mitral Doppler indices are consistent with impaired relaxation (Stage I diastolic dysfunction). E/E`=6. Right Ventricle: Normal right ventricular size. Normal right ventricular systolic function. Left Atrium: The left atrium is normal in size. Right Atrium: The right atrium is normal in size. Atrial Septum: Not well visualized. Mitral Valve: Mild mitral leaflet calcification. Mild mitral annular calcification. Trace mitral regurgitation. Aortic Valve: Aortic cusps appear mildly calcified. Trileaflet aortic valve. Trace to mild aortic valve regurgitation. Tricuspid Valve: Normal appearance and function of the tricuspid valve with trace physiologic regurgitation. Pulmonic Valve: Pulmonic valve not well visualized. Pericardium: Normal pericardium with no significant pericardial effusion. No pleural effusion noted. Aorta: Normal aortic root. IVC: The IVC is not well visualized. Pulmonary Artery: Not well visualized. Conclusions 1.Overall, normal left ventricular systolic function. Not all segments visualized. Normal left ventricular cavity size. Moderate concentric left ventricular hypertrophy. Ejection fraction is visually estimated at 55 %. Tissue Doppler/Mitral Doppler indices are consistent with impaired relaxation (Stage I diastolic dysfunction). E/E`=6. 2.Mild mitral leaflet calcification. Mild mitral annular calcification. Trace mitral regurgitation. 3.Aortic cusps appear mildly calcified. Trileaflet aortic valve. Trace to mild aortic valve regurgitation. 4.Normal appearance and function of the tricuspid valve with trace physiologic regurgitation. 5.Pulmonic valve not well visualized. 6.Normal pericardium with no significant pericardial effusion. No pleural effusion noted. Electronically Signed By: Nora Mejia 15-Jul-2017 09:51:19 -0800 Patient Name: TERESA ROSADO Study Date: 14-Jul-2017 [id number]
[2017-07-15 12:28] LABS: BASOPHILS % 0.3 % (0.0-2.0); EOSINOPHILS # 0.1 10^3/ul (0.0-0.5); EOSINOPHILS % 1.1 % (0.0-7.0); HEMOGLOBIN 8.6 g/dl (14.0-18.0); LYMPHOCYTES % 9.8 % (15.0-51.0); MEAN CORPUSCULAR HEMOGLOBIN 30.8 pg (29.0-33.0); MEAN CORPUSCULAR HGB CONC 30.7 g/dl (32.0-37.0); MEAN CORPUSCULAR VOLUME 100.4 fl (82.0-101.0); MEAN PLATELET VOLUME 9.8 fl (7.4-10.4); MONOCYTE # 0.9 10^3/ul (0.3-0.9); MONOCYTES % 8.4 % (0.0-11.0); NEUTROPHIL # 8.1 10^3/ul (1.6-7.5); PLATELET COUNT 234 10^3/UL (140-415); RED BLOOD COUNT 2.79 10^6/ul (4.70-6.10); RED CELL DISTRIBUTION WIDTH 15.6 % (11.5-14.5); WHITE BLOOD COUNT 10.1 10^3/ul (4.8-10.8)
[2017-07-15 12:45] LABS: CREATININE 3.22 mg/dl (0.61-1.24); POTASSIUM 4.2 mmol/L (3.5-5.1)
[2017-07-15 16:43] LABS: BASOPHILS % 0.2 % (0.0-2.0); EOSINOPHILS # 0.1 10^3/ul (0.0-0.5); HEMATOCRIT 27.6 % (42.0-52.0); HEMOGLOBIN 8.6 g/dl (14.0-18.0); LYMPHOCYTES # 0.8 10^3/ul (0.8-2.9); LYMPHOCYTES % 7.4 % (15.0-51.0); MEAN CORPUSCULAR HEMOGLOBIN 31.3 pg (29.0-33.0); MEAN CORPUSCULAR HGB CONC 31.2 g/dl (32.0-37.0); MEAN CORPUSCULAR VOLUME 100.4 fl (82.0-101.0); MEAN PLATELET VOLUME 10.8 fl (7.4-10.4); MONOCYTE # 0.9 10^3/ul (0.3-0.9); MONOCYTES % 7.9 % (0.0-11.0); PLATELET COUNT 262 10^3/UL (140-415); RED BLOOD COUNT 2.75 10^6/ul (4.70-6.10); RED CELL DISTRIBUTION WIDTH 15.8 % (11.5-14.5); WHITE BLOOD COUNT 10.9 10^3/ul (4.8-10.8)
--- NOTE | 2017-07-15 17:00 | PN ---
Date/Time of Note Date/Time of Note DATE: 07/15/17 TIME: 16:58 Assessment/Plan VTE Prophylaxis VTE Prophylaxis Intervention: heparin Lines/Catheters IV Catheter Type (from Nrs): Peripheral IV Urinary Cath still in place: No Assessment/Plan Chief Complaint/Hosp Course 1. Left hip fracture Consult with Dr. Lilly of orthopedics appreciated, plan is for surgery tomorrow Pain control Cardiology consultation appreciated, patient cleared for surgery 2. Hypertension Hydralazine as needed Home meds 3. Parkinson's with dementia Continue home meds 4. BPH Continue Flomax Prophylaxis: Heparin Problems: Subjective 24 Hr Interval Summary Subjective hx not possible: pt non-verbal Exam/Review of Systems Vital Signs Vitals Vital Signs Date Time Temp Pulse Resp B/P Pulse Ox O2 Delivery O2 Flow Rate FiO2 07/15/17 16:24 91 07/15/17 16:13 97.8 18 127/83 97 Intake and Output 07/14/17 07/14/17 07/15/17 14:59 22:59 06:59 Intake Total 800 ml Output Total 300 ml Balance 500 ml Exam Constitutional: non-verbal Respiratory: clear to auscultation Cardiovascular: regular rate and rhythm Gastrointestinal: soft, No distended Musculoskeletal: nl extremities to inspection Results Result Diagram: 07/15/17 1608 07/15/17 1220 Results 24 hrs Laboratory Tests Test 07/15/17 12:19 07/15/17 12:20 07/15/17 16:08 White Blood Count 10.1 10.9 H Red Blood Count 2.79 L 2.75 L Hemoglobin 8.6 L 8.6 L Hematocrit 28.0 L 27.6 L Mean Corpuscular Volume 100.4 100.4 Mean Corpuscular Hemoglobin 30.8 31.3 Mean Corpuscular Hemoglobin Concent 30.7 L 31.2 L Red Cell Distribution Width 15.6 H 15.8 H Platelet Count 234 262 Mean Platelet Volume 9.8 10.8 H Neutrophils % 80.0 H 83.0 H Lymphocytes % 9.8 L 7.4 L Monocytes % 8.4 7.9 Eosinophils % 1.1 1.0 Basophils % 0.3 0.2 Nucleated Red Blood Cells % 0.0 0.0 Neutrophils # 8.1 H 9.0 H Lymphocytes # 1.0 0.8 Monocytes # 0.9 0.9 Eosinophils # 0.1 0.1 Basophils # 0.0 0.0 Nucleated Red Blood Cells # 0.0 0.0 Sodium Level 140 Potassium Level 4.2 Chloride Level 111 H Carbon Dioxide Level 18 L Anion Gap 15 Blood Urea Nitrogen 38 H Creatinine 3.22 H Glucose Level 133 Calcium Level 8.0 L Medications Medications Current Medications Potassium Chloride/Dextrose/ Sod Cl (D5-1/2ns + KCl 20 Meq) 1,000 ml @ 80 mls/ hr [id number] IV Last administered on 07/15/17 09:36; Admin Dose 80 MLS/HR; Start 07/13/17 at 14:02 Ondansetron HCl (Zofran Inj) 4 mg Q6H PRN IV NAUSEA AND/OR VOMITING; Start at 14:30 Acetaminophen (Tylenol Tab) 650 mg Q6H PRN PO PAIN LEVEL 1-3 OR FEVER; Start 07/13/17 at 14:30 Acetaminophen/ Hydrocodone Bitart ([place] (5/325)) 1 tab Q6H PRN PO MODERATE PAIN LEVEL 4-6; Start 07/13/17 at 14:30 Morphine Sulfate (morphine) 2 mg Q4H PRN IV SEVERE PAIN LEVEL 7-10 Last administered on 07/14/17 11:14; Admin Dose 2 MG; Start 07/13/17 at 14:30 Docusate Sodium (Colace) 100 mg Q12H PRN PO CONSTIPATION; Start 07/13/17 at 14 :30 Magnesium Hydroxide (Milk Of Mag) 30 ml DAILY PRN PO CONSTIPATION; Start 07/13 at 14:30 Heparin Sodium (Porcine) (Heparin (5000 Units/0.5 ml)) 5,000 unit Q12 SC Last administered on 07/15/17 09:31; Admin Dose 5,000 UNIT; Start 07/13/17 at 21: 00 Hydralazine HCl (Apresoline) 10 mg Q4H PRN IV SBP>170; Start 07/13/17 at 14:30 Bupropion HCl (Wellbutrin Sr) 150 mg DAILY PO Last administered on 07/15/17 09:26; Admin Dose 150 MG; Start 07/14/17 at 09:00 Carbidopa/Levodopa (Sinemet Cr (25/ )) 1 tab QID PO Last administered on 15:32; Admin Dose 1 TAB; Start 07/13/17 at 17:00 Docusate Sodium (Colace) 100 mg BID PO Last administered on 07/15/17 09:26; Admin Dose 100 MG; Start 07/13/17 at 21:00 Furosemide (Lasix) 20 mg DAILY PO Last administered on 07/15/17 09:26; Admin Dose 20 MG; Start 07/14/17 at 09:00 Lisinopril (Zestril) 10 mg DAILY PO Last administered on 07/15/17 09:27; Admin Dose 10 MG; Start 07/13/17 at 15:30 Tamsulosin HCl (Flomax) 0.4 mg HS PO Last administered on 07/14/17 21:25; Admin Dose 0.4 MG; Start 07/13/17 at 21:00 Pantoprazole (Protonix Tab) 40 mg DAILY PO Last administered on 07/15/17 09: 27; Admin Dose 40 MG; Start 07/14/17 at 09:00 Memantine (Namenda) 10 mg BID PO Last administered on 07/15/17 09:25; Admin Dose 10 MG; Start 07/13/17 at 21:00 Atorvastatin Calcium (Lipitor) 20 mg QHS PO Last administered on 07/14/17 21: 25; Admin Dose 20 MG; Start 07/13/17 at 21:00 Metoprolol Succinate (Toprol Xl) 50 mg DAILY PO ; Start 07/16/17 at 09:00 BARRERA MEYER Jul 15, 2017 16:59
[2017-07-15] MEDS: morphine 2 MG INJ IV PRN ×2 (18:14→23:42)
[2017-07-15] MEDS: ATORVASTATIN 20 MG TAB PO SCH (20:59)
[2017-07-15] MEDS: TAMSULOSIN (SR) 0.4 MG CAP PO SCH (21:00)
[2017-07-15] MEDS: HYDROCODONE/APAP (5/325) TAB PO PRN (21:07)
[2017-07-16] VITALS (15 sets, daily range): BP systolic 100–164; BP diastolic 58–99; PULSE 74–127; RESP 16–20
[2017-07-16] MEDS: D5W-0.45 NACL + KCL 20 MEQ 1,000 ML IV SCH ×2 (04:32→17:02)
--- NOTE | 2017-07-16 08:40 | PN ---
Date/Time of Note Date/Time of Note DATE: 07/16/17 TIME: 08:37 Assessment/Plan VTE Prophylaxis VTE Prophylaxis Intervention: heparin Lines/Catheters IV Catheter Type (from Nrsg): [place] line still needed: No Urinary Cath still in place: No Assessment/Plan Assessment/Plan 1. Left hip fracture plan is for left hemiarthroplasty today around [id number] Lilly. Heparin and lasix held for today. Pain control Cardiology consultation appreciated, patient cleared for surgery 2. Hypertension Hydralazine as needed Home meds (metoprolol and lisinopril) 3. Parkinson's with dementia Continue home meds 4. BPH Continue Flomax Prophylaxis: Heparin (held for surgery today). Subjective 24 Hr Interval Summary Free Text/Dictation Resting in bed with no complaints currently. He received two units PRBCs overnight and will be going to the OR around 1700. Exam/Review of Systems Vital Signs Vitals Vital Signs Date Time Temp Pulse Resp B/P Pulse Ox O2 Delivery O2 Flow Rate FiO2 07/16/17 08:13 98.2 84 18 139/81 99 07/16/17 02:26 Room Air Intake and Output 07/15/17 07/15/17 07/16/17 15:00 23:00 07:00 Intake Total 1240 ml 1290 ml Output Total 600 ml 600 ml Balance 640 ml 690 ml Exam Constitutional: alert, oriented Psych: no complaints Head: normocephalic Eyes: nl conjunctiva ENMT: nl external ears & nose Neck: supple Respiratory: clear to auscultation Cardiovascular: regular rate and rhythm Gastrointestinal: soft Extremities: edema (trace) Neurological: ANALYTICAL SCIENTIST II-XII intact Results Result Diagram: 07/15/17 1608 07/15/17 1220 Results 24 hrs Laboratory Tests Test 07/15/17 12:19 07/15/17 12:20 07/15/17 16:08 White Blood Count 10.1 10.9 H Red Blood Count 2.79 L 2.75 L Hemoglobin 8.6 L 8.6 L Hematocrit 28.0 L 27.6 L Mean Corpuscular Volume 100.4 100.4 Mean Corpuscular Hemoglobin 30.8 31.3 Mean Corpuscular Hemoglobin Concent 30.7 L 31.2 L Red Cell Distribution Width 15.6 H 15.8 H Platelet Count 234 262 Mean Platelet Volume 9.8 10.8 H Neutrophils % 80.0 H 83.0 H Lymphocytes % 9.8 L 7.4 L Monocytes % 8.4 7.9 Eosinophils % 1.1 1.0 Basophils % 0.3 0.2 Nucleated Red Blood Cells % 0.0 0.0 Neutrophils # 8.1 H 9.0 H Lymphocytes # 1.0 0.8 Monocytes # 0.9 0.9 Eosinophils # 0.1 0.1 Basophils # 0.0 0.0 Nucleated Red Blood Cells # 0.0 0.0 Sodium Level 140 Potassium Level 4.2 Chloride Level 111 H Carbon Dioxide Level 18 L Anion Gap 15 Blood Urea Nitrogen 38 H Creatinine 3.22 H Glucose Level 133 Calcium Level 8.0 L Medications Medications Current Medications Potassium Chloride/Dextrose/ Sod Cl (D5-1/2ns + KCl 20 Meq) 1,000 ml @ 80 mls/ hr [id number] IV Last administered on 07/15/17 22:05; Admin Dose 80 MLS/HR; Start 07/13/17 at 14:02 Ondansetron HCl (Zofran Inj) 4 mg Q6H PRN IV NAUSEA AND/OR VOMITING; Start at 14:30 Acetaminophen (Tylenol Tab) 650 mg Q6H PRN PO PAIN LEVEL 1-3 OR FEVER; Start 07/13/17 at 14:30 Acetaminophen/ Hydrocodone Bitart ([place] (5/325)) 1 tab Q6H PRN PO MODERATE PAIN LEVEL 4-6 Last administered on 07/15/17 21:07; Admin Dose 1 TAB; Start 07/13/17 at 14:30 Morphine Sulfate (morphine) 2 mg Q4H PRN IV SEVERE PAIN LEVEL 7-10 Last administered on 07/15/17 23:42; Admin Dose 2 MG; Start 07/13/17 at 14:30 Docusate Sodium (Colace) 100 mg Q12H PRN PO CONSTIPATION; Start 07/13/17 at 14 :30 Magnesium Hydroxide (Milk Of Mag) 30 ml DAILY PRN PO CONSTIPATION; Start 07/13 at 14:30 Hydralazine HCl (Apresoline) 10 mg Q4H PRN IV SBP>170; Start 07/13/17 at 14:30 Bupropion HCl (Wellbutrin Sr) 150 mg DAILY PO Last administered on 07/15/17 09:26; Admin Dose 150 MG; Start 07/14/17 at 09:00 Carbidopa/Levodopa (Sinemet Cr ()) 1 tab QID PO Last administered on 20:59; Admin Dose 1 TAB; Start 07/13/17 at 17:00 Docusate Sodium (Colace) 100 mg BID PO Last administered on 07/15/17 21:00; Admin Dose 100 MG; Start 07/13/17 at 21:00 Furosemide (Lasix) 20 mg DAILY PO Last administered on 07/15/17 09:26; Admin Dose 20 MG; Start 07/14/17 at 09:00 Lisinopril (Zestril) 10 mg DAILY PO Last administered on 07/15/17 09:27; Admin Dose 10 MG; Start 07/13/17 at 15:30 Tamsulosin HCl (Flomax) 0.4 mg HS PO Last administered on 07/15/17 21:00; Admin Dose 0.4 MG; Start 07/13/17 at 21:00 Pantoprazole (Protonix Tab) 40 mg DAILY PO Last administered on 07/15/17 09: 27; Admin Dose 40 MG; Start 07/14/17 at 09:00 Memantine (Namenda) 10 mg BID PO Last administered on 07/15/17 21:00; Admin Dose 10 MG; Start 07/13/17 at 21:00 Atorvastatin Calcium (Lipitor) 20 mg QHS PO Last administered on 07/15/17 20: 59; Admin Dose 20 MG; Start 07/13/17 at 21:00 Metoprolol Succinate (Toprol Xl) 50 mg DAILY PO ; Start 07/16/17 at 09:00 CHARLES GOLDMAN MD Jul 16, 2017 08:40
[2017-07-16] MEDS: FUROSEMIDE 20 MG TAB PO SCH (09:00)
[2017-07-16] MEDS: BUPROPION (SR) 150 MG TAB PO SCH (09:51)
[2017-07-16] MEDS: PANTOPRAZOLE (EC) 40 MG TAB PO SCH (09:51)
[2017-07-16] MEDS: CARBIDOPA/LEVODOPA 25-100 (CR) TAB PO SCH ×4 (09:52→21:18)
[2017-07-16] MEDS: MEMANTINE 10 MG TAB PO SCH ×2 (09:52→21:18)
[2017-07-16] MEDS: LISINOPRIL 10 MG TAB PO SCH (09:52)
[2017-07-16] MEDS: DOCUSATE SODIUM 100 MG CAP PO SCH ×2 (09:52→21:18)
[2017-07-16] MEDS: METOPROLOL (XL) 50 MG TAB PO SCH (09:52)
[2017-07-16 11:51] LABS: BASOPHILS % 0.3 % (0.0-2.0); EOSINOPHILS # 0.3 10^3/ul (0.0-0.5); EOSINOPHILS % 2.2 % (0.0-7.0); HEMATOCRIT 37.2 % (42.0-52.0); HEMOGLOBIN 11.7 g/dl (14.0-18.0); LYMPHOCYTES # 1.3 10^3/ul (0.8-2.9); LYMPHOCYTES % 10.5 % (15.0-51.0); MEAN CORPUSCULAR HEMOGLOBIN 30.8 pg (29.0-33.0); MEAN CORPUSCULAR HGB CONC 31.5 g/dl (32.0-37.0); MEAN CORPUSCULAR VOLUME 97.9 fl (82.0-101.0); MEAN PLATELET VOLUME 10.5 fl (7.4-10.4); MONOCYTES % 8.4 % (0.0-11.0); NEUTROPHIL # 9.4 10^3/ul (1.6-7.5); NEUTROPHILS % 78.3 % (39.0-77.0); PLATELET COUNT 197 10^3/UL (140-415); RED CELL DISTRIBUTION WIDTH 16.2 % (11.5-14.5)
[2017-07-16] MEDS: morphine 2 MG INJ IV PRN ×2 (12:37→13:02)
--- NOTE | 2017-07-16 18:38 | EN ---
Date/Time of Note Date/Time of Note DATE: 07/16/17 TIME: 18:36 Event Note Medicine Medicine Event Note Notified that surgery has been postponed until 0700h tomorrow morning. Review of lab studies today show stably elevated creatinine of 3.22, without anemia or electrolyte abnormalities. HgbA1c is normal, and INR was 1.0. AURA HEATH M.D. Jul 16, 2017 18:38
[2017-07-16] MEDS: TAMSULOSIN (SR) 0.4 MG CAP PO SCH (21:18)
[2017-07-16] MEDS: ATORVASTATIN 20 MG TAB PO SCH (21:18)
[2017-07-16] MEDS: HYDROCODONE/APAP (5/325) TAB PO PRN (21:22)
[2017-07-17] VITALS (31 sets, daily range): BP systolic 75–138; BP diastolic 49–93; PULSE 53–167; RESP 8–31
[2017-07-17] MEDS: D5W-0.45 NACL + KCL 20 MEQ 1,000 ML IV SCH ×4 (00:25→20:10)
[2017-07-17] MEDS ORDERED: ROCURONIUM 50 MG INJ ONE (07:00)
[2017-07-17] MEDS ORDERED: CEFAZOLIN 1 GM INJ ONE (07:00)
[2017-07-17 08:56] LABS: BASOPHILS % 0.2 % (0.0-2.0); EOSINOPHILS # 0.3 10^3/ul (0.0-0.5); EOSINOPHILS % 3.4 % (0.0-7.0); HEMATOCRIT 37.6 % (42.0-52.0); HEMOGLOBIN 12.2 g/dl (14.0-18.0); LYMPHOCYTES # 0.9 10^3/ul (0.8-2.9); LYMPHOCYTES % 9.2 % (15.0-51.0); MEAN CORPUSCULAR HEMOGLOBIN 30.7 pg (29.0-33.0); MEAN CORPUSCULAR HGB CONC 32.4 g/dl (32.0-37.0); MEAN CORPUSCULAR VOLUME 94.7 fl (82.0-101.0); MEAN PLATELET VOLUME 10.4 fl (7.4-10.4); MONOCYTE # 0.9 10^3/ul (0.3-0.9); MONOCYTES % 9.7 % (0.0-11.0); NEUTROPHIL # 7.3 10^3/ul (1.6-7.5); NEUTROPHILS % 77.1 % (39.0-77.0); PLATELET COUNT 225 10^3/UL (140-415); RED BLOOD COUNT 3.97 10^6/ul (4.70-6.10); RED CELL DISTRIBUTION WIDTH 15.9 % (11.5-14.5); WHITE BLOOD COUNT 9.5 10^3/ul (4.8-10.8)
--- NOTE | 2017-07-17 08:59 | HPN ---
Date/Time of Note Date/Time of Note DATE: 07/17/17 TIME: 08:54 Interval H&P Admission Note Pt. seen H&P reviewed: Systems changes noted below DEVELOPEMENT OF TACHYCARDIA THIS MORNING ---REEVALUATED BY ANESTHESIA SND CARDIOLOGY WITH REPEATED EKG AND CLEARED FOR SURGERY ALFONSO VARNER MD Jul 17, 2017 08:59
[2017-07-17] MEDS: LISINOPRIL 10 MG TAB PO SCH (09:00)
[2017-07-17] MEDS: BUPROPION (SR) 150 MG TAB PO SCH (09:00)
[2017-07-17] MEDS: PANTOPRAZOLE (EC) 40 MG TAB PO SCH (09:00)
[2017-07-17] MEDS: MEMANTINE 10 MG TAB PO SCH ×2 (09:00→21:12)
[2017-07-17] MEDS: DOCUSATE SODIUM 100 MG CAP PO SCH ×2 (09:00→21:11)
[2017-07-17] MEDS: CARBIDOPA/LEVODOPA 25-100 (CR) TAB PO SCH ×4 (09:00→21:12)
[2017-07-17] MEDS: FUROSEMIDE 20 MG TAB PO SCH (09:00)
[2017-07-17] MEDS: METOPROLOL (XL) 50 MG TAB PO SCH (09:00)
[2017-07-17 09:19] LABS: CALCIUM 8.5 mg/dl (8.4-10.2); CREATININE 2.95 mg/dl (0.61-1.24); POTASSIUM 4.7 mmol/L (3.5-5.1)
[2017-07-17] MEDS ORDERED: DILTIAZEM 25 MG INJ IV ONE ×2 (09:30→18:30)
[2017-07-17] MEDS ORDERED: PHENYLephrine (100 MCG/ML) 5ML SYG ONE (10:06)
[2017-07-17] MEDS ORDERED: POLYMYXIN/BACITRACIN 1L IRRIG IRR ONE (10:41)
[2017-07-17] MEDS: ENOXAPARIN 40 MG/0.4 ML SYG SC SCH (12:00)
[2017-07-17] MEDS ORDERED: NEOSTIGMINE 3 MG/3 ML SYRINGE ONE (12:04)
[2017-07-17] MEDS ORDERED: ETOMIDATE 20 MG INJ ONE (12:04)
[2017-07-17] MEDS ORDERED: GLYCOPYRROLATE 0.4 MG INJ ONE (12:05)
--- NOTE | 2017-07-17 12:24 | SIPON ---
Date/Time of Note Date/Time of Note DATE: 07/17/17 TIME: 12:18 Operative Report Preoperative Diagnosis lT. FEMORAL NECK FRACTURE Postoperative Diagnosis SAME PREOP Operation/Procedure Performed HEMIARTHROPLASTY OF lT. HIP Surgeon see signature line endodontic assistant Sandra Michaud Anesthesia: general Estimated blood loss: 250 - 300 ml's Transfusion Required none Specimen femoral head Grafts/Implants bipolar femoral head Complications none ALFONSO VARNER MD Jul 17, 2017 12:24
[2017-07-17] MEDS ORDERED: HYDROmorphONE (0.2 MG/ML) 10ML SYG IV PRN ×2 (12:30)
[2017-07-17] MEDS ORDERED: MEPERIDINE 25 MG INJ IV PRN (12:30)
[2017-07-17] MEDS ORDERED: LABETALOL HCL 20MG INJ IV PRN (12:30)
[2017-07-17] MEDS ORDERED: HYDROCODONE/APAP (5/325) TAB PO PRN ×2 (12:30)
[2017-07-17] MEDS ORDERED: morphine 4 MG/ML VIAL IV PRN (12:30)
[2017-07-17] MEDS ORDERED: NACL 0.9% 3 ML SYG IV SCH (12:30)
[2017-07-17] MEDS ORDERED: hydrALAzine 20 MG INJ IV PRN (12:30)
[2017-07-17] MEDS ORDERED: ONDANSETRON 4 MG INJ IV PRN (12:30)
[2017-07-17] MEDS ORDERED: EPHEDrine SULFATE 50 MG/5 ML SYG IV PRN (12:30)
[2017-07-17] MEDS ORDERED: KETOROLAC 30 MG INJ IV PRN (12:30)
[2017-07-17] MEDS ORDERED: FENTAnyl 50 MCG/ML VIAL IV PRN ×2 (12:30)
[2017-07-17] MEDS ORDERED: MIDAZOLAM 1 MG/ML 2 ML INJ IV PRN (12:30)
[2017-07-17] MEDS ORDERED: METOCLOPRAMIDE 10 MG INJ IV PRN (12:30)
[2017-07-17] MEDS ORDERED: DIPHENHYDRAMINE 50 MG INJ IV PRN (12:30)
--- NOTE | 2017-07-17 13:05 | PN ---
Date/Time of Note Date/Time of Note DATE: 07/17/17 TIME: 12:41 Assessment/Plan VTE Prophylaxis VTE Prophylaxis Intervention: heparin (For DVT prophylaxis, on hold preop) Lines/Catheters IV Catheter Type (from [facility]): Peripheral IV Urinary Cath still in place: No Assessment/Plan Assessment/Plan 89-year-old male with: 1. Left hip fracture status post left hemiarthroplasty and IT femoral head. Patient still in recovery at this point, he is POD#0 Follow-up postop recommendations from Dr. Lilly Appreciate cardiology assistance. Pain control and DVT prophylaxis postoperatively would recommend Eliquis for DVT prophylaxis post left hemiarthroplasty as the medication can be dosed renally 2.5 mg twice daily 2. Chronic kidney disease, CKD 4-5, creatinine seems to be stable with no electrolytes abnormalities. Will monitor in the postoperative setting. We will discontinue lisinopril in setting of advanced kidney disease. 3. Hypertension. Continue metoprolol. Hydralazine as needed, D/c Lisinopril. 4. Parkinson's with dementia. Continue home meds 5. BPH. Continue Flomax Prophylaxis: Heparin (held for surgery today) for DVT prophylaxis preoperatively , Protonix for GI prophylaxis Disposition: We will continue to follow postoperatively, further recommendation per orthopedic surgery. Follow-up cardiology recommendations. Subjective 24 Hr Interval Summary Free Text/Dictation Patient is postoperative, he had an episode of sinus tachycardia this morning resolved post Cardizem. VSS in PACU and patient waking up from anesthesia, seems confused, however his primary Liberian speaking. Restraints have been renewed. Exam/Review of Systems Vital Signs Vitals Vital Signs Date Time Temp Pulse Resp B/P Pulse Ox O2 Delivery O2 Flow Rate FiO2 07/17/17 12:26 98.6 07/17/17 12:18 53 18 75/49 100 Mask Intake and Output 07/16/17 07/16/17 07/17/17 15:00 23:00 07:00 Intake Total 900 ml 250 ml Output Total 800 ml 950 ml Balance 100 ml -700 ml Exam Liberian speaking only post op seen in PACU Constitutional: alert, frail Respiratory: clear to auscultation, normal air movement Cardiovascular: nl pulses, regular rate and rhythm Gastrointestinal: non-tender, soft Musculoskeletal: nl extremities to inspection, other (s/p left hemiarthroplasty ) Extremities: normal pulses, other (no edema, clubbing or cyanosis ) Neurological: ADOPTION SERVICES MANAGER II-XII intact, nl mental status, nl speech Results Result Diagram: 07/17/17 0753 07/17/17 0753 Results 24 hrs Laboratory Tests Test 07/17/17 07:53 White Blood Count 9.5 # Red Blood Count 3.97 L Hemoglobin 12.2 L Hematocrit 37.6 L Mean Corpuscular Volume 94.7 Mean Corpuscular Hemoglobin 30.7 Mean Corpuscular Hemoglobin Concent 32.4 Red Cell Distribution Width 15.9 H Platelet Count 225 Mean Platelet Volume 10.4 Neutrophils % 77.1 H Lymphocytes % 9.2 L Monocytes % 9.7 Eosinophils % 3.4 Basophils % 0.2 Nucleated Red Blood Cells % 0.0 Neutrophils # 7.3 Lymphocytes # 0.9 Monocytes # 0.9 Eosinophils # 0.3 Basophils # 0.0 Nucleated Red Blood Cells # 0.0 Sodium Level 137 Potassium Level 4.7 Chloride Level 110 Carbon Dioxide Level 17 L Anion Gap 15 Blood Urea Nitrogen 33 H Creatinine 2.95 H Glucose Level 115 Calcium Level 8.5 Medications Medications Current Medications Ondansetron HCl (Zofran Inj) 4 mg Q6H PRN IV NAUSEA AND/OR VOMITING; Start at 14:30 Acetaminophen (Tylenol Tab) 650 mg Q6H PRN PO PAIN LEVEL 1-3 OR FEVER; Start 07/13/17 at 14:30 Acetaminophen/ Hydrocodone Bitart ([place] (5/325)) 1 tab Q6H PRN PO MODERATE PAIN LEVEL 4-6 Last administered on 07/16/17 21:22; Admin Dose 1 TAB; Start 07/13/17 at 14:30 Morphine Sulfate (morphine) 2 mg Q4H PRN IV SEVERE PAIN LEVEL 7-10 Last administered on 07/16/17 13:02; Admin Dose 2 MG; Start 07/13/17 at 14:30 Docusate Sodium (Colace) 100 mg Q12H PRN PO CONSTIPATION; Start 07/13/17 at 14 :30 Magnesium Hydroxide (Milk Of Mag) 30 ml DAILY PRN PO CONSTIPATION; Start 07/13 at 14:30 Hydralazine HCl (Apresoline) 10 mg Q4H PRN IV SBP>170; Start 07/13/17 at 14:30 Bupropion HCl (Wellbutrin Sr) 150 mg DAILY PO Last administered on 07/16/17 09:51; Admin Dose 150 MG; Start 07/14/17 at 09:00 Carbidopa/Levodopa (Sinemet Cr ()) 1 tab QID PO Last administered on 21:18; Admin Dose 1 TAB; Start 07/13/17 at 17:00 Docusate Sodium (Colace) 100 mg BID PO Last administered on 07/16/17 21:18; Admin Dose 100 MG; Start 07/13/17 at 21:00 Furosemide (Lasix) 20 mg DAILY PO Last administered on 07/15/17 09:26; Admin Dose 20 MG; Start 07/14/17 at 09:00 Lisinopril (Zestril) 10 mg DAILY PO Last administered on 07/16/17 09:52; Admin Dose 10 MG; Start 07/13/17 at 15:30 Tamsulosin HCl (Flomax) 0.4 mg HS PO Last administered on 07/16/17 21:18; Admin Dose 0.4 MG; Start 07/13/17 at 21:00 Pantoprazole (Protonix Tab) 40 mg DAILY PO Last administered on 07/16/17 09: 51; Admin Dose 40 MG; Start 07/14/17 at 09:00 Memantine (Namenda) 10 mg BID PO Last administered on 07/16/17 21:18; Admin Dose 10 MG; Start 07/13/17 at 21:00 Atorvastatin Calcium (Lipitor) 20 mg QHS PO Last administered on 07/16/17 21: 18; Admin Dose 20 MG; Start 07/13/17 at 21:00 Metoprolol Succinate 50 mg 50 mg DAILY PO Last administered on 07/16/17 09:52 ; Admin Dose 50 MG; Start 07/16/17 at 09:00 Potassium Chloride/Dextrose/ Sod Cl (D5-1/2ns + KCl 20 Meq) 1,000 ml @ 125 mls/ hr Q8H IV ; Start 07/17/17 at 12:10 Acetaminophen/ Hydrocodone Bitart ([place] (5/325)) 1 tab Q4H PRN PO PAIN LEVEL 1 -3; Start 07/17/17 at 12:30 Acetaminophen/ Hydrocodone Bitart ([place] (5/325)) 2 tab Q4H PRN PO PAIN LEVEL 4 -7; Start 07/17/17 at 12:30 Enoxaparin Sodium (Lovenox) 40 mg DAILY SC ; Start 07/17/17 at 12:00; Status Future hold Morphine Sulfate 3 mg 3 mg Q3H PRN IV PAIN; Start 07/17/17 at 12:30 Cefazolin Sodium (Ancef 1 Gm/50 ml (Pmx)) 50 ml @ 100 mls/hr Q12 IVPB ; Start 07/17/17 at 13:00; Stop 07/18/17 at 09:29 MAGDALENO GUEVARA Jul 17, 2017 12:55
[2017-07-17 13:13] LABS: HEMATOCRIT 29.7 % (42.0-52.0); HEMOGLOBIN 9.4 g/dl (14.0-18.0)
--- NOTE | 2017-07-17 13:26 | RADRPT ---
PROCEDURE: Left hip x-ray CLINICAL INDICATION: Postoperative follow-up TECHNIQUE: AP left hip COMPARISON: Pelvis 07/17/[address] dated 07/13/2017 FINDINGS: The patient is status post left total hip replacement with intact hardware and alignment. The appear ance of an endovascular aortic stent is superimposed over the mid sacrum. No acute fractures or disl ocations are present. Vascular calcifications are noted compatible with atherosclerotic vascular dis ease IMPRESSION: 1. Status post left total hip replacement with intact hardware and stapled incision over the left p roximal thigh 2. No evidence for dislocations 3. Aorta endovascular stent and mild atherosclerotic vascular disease RPTAT: HDC .Peace Chaves MD, Date Time Electronically viewed and signed by .Peace Chaves MD, on 07/17/2017 13:25 .C/
[2017-07-17 13:29] LABS: CREATININE 2.72 mg/dl (0.61-1.24); POTASSIUM 4.8 mmol/L (3.5-5.1)
--- NOTE | 2017-07-17 13:58 | RADRPT ---
PROCEDURE: Pelvis x-ray CLINICAL INDICATION: Post op in PACU TECHNIQUE: Single AP view of the pelvis performed. COMPARISON: None FINDINGS: The femoral and acetabular components of the left hip arthroplasty appear anatomically aligned. Ther e are vascular calcifications in the proximal portions of the superficial femoral arteries. There ar e partially visualized stents identified in the midline and slightly to the right of midline in the upper pelvis. There are degenerative changes in the right hip. There is subcutaneous emphysema with surgical luz adjacent to the left hip. IMPRESSION: 1. Status post total left hip arthroplasty with subcutaneous emphysema noted in the proximal left h ip. 2. Osteoarthritis of the right hip. 3. Vascular stents are noted in the upper pelvis. RPTAT:AAJJ Physician Ann Marie Date Time Electronically viewed and signed by Monty Guzman Physician on 07/17/2017 13:58 /
[2017-07-17] MEDS ORDERED: CEFAZOLIN 1 GM/50 ML (PMX) 50 ML IVPB SCH (14:00)
--- NOTE | 2017-07-17 14:28 | RADRPT ---
Vent Rate: 142 bpm RR Interval: 0 msec NE Interval: 154 msec QRS Duration: 72 msec QT Interval: 296 msec QTC Interval: 455 msec P-R-T [place]: 0 - -51 - 42 degrees Significant baseline artifact, sinus tachycardia vs atrial flutter with occasional premature ventricular complexes Low voltage QRS Left anterior fascicular block Inferior infarct , age undetermined Possible Anterolateral infarct , age undetermined Abnormal ECG Electronically Signed By: Dennis Schrader [id number]
[2017-07-17] MEDS: morphine 2 MG INJ IV PRN (14:51)
[2017-07-17] MEDS: CEFAZOLIN 1 GM/50 ML (PMX) 50 ML IVPB SCH ×2 (14:51→22:22)
--- NOTE | 2017-07-17 15:03 | OPR ---
DATE OF OPERATION: 07/17/2017 PREOPERATIVE DIAGNOSIS: Femoral neck fracture of the left hip. POSTOPERATIVE DIAGNOSIS: Femoral neck fracture of the left hip. OPERATION PERFORMED: Hemiarthroplasty of the left hip. ANESTHESIA: General anesthesia. SURGEON: Edson Lilly MD PROCEDURE AND FINDINGS: Under general anesthesia the patient was placed in the right lateral decubitus position with the left side up. Usual prep and drape was done exposing the left hip and left lower extremity. The left hip was approached through the usual posterior lateral oblique incision. After splitting gluteal muscles and detaching short external rotators, the hip joint was opened. On opening the hip joint there obviously was an obvious femoral neck fracture. The head was removed and the measurements revealed that the size of head is about 48 mm in diameter. After cleaning the acetabular cavity, trial reduction was carried out with the trial bipolar cup and the filling and the stability was entirely satisfactory. After packing a steroid cavity, attention was then directed to the proximal femur. Following initial preparation with a box osteotome and ribbon hand further preparation was carried out with increasing size of broaches with the size 6 broach and the trial components were assembled, and trial reduction was carried out. After several trials, it was my feeling that +4 neck in a high offset setting with the 48 mm bipolar cup was providing best fit and stability. After removing all the trial components, the actual femoral stem in the size of 6 was pounded in and this was connected to the +4 neck, 48 mm. It was connected to the 58 mm bipolar cup. Joint was reduced and the range of motion and the stability was entirely satisfactory. After repairing short external rotators and capsules further closure was carried out using 0 Vicryl for muscle and fascia and 2-0 Vicryl for subcutaneous tissues. Final skin closure was carried out with skin luz. Usual sterile pressure dressings were applied. The hip was immobilized in an abduction pillow. The patient tolerated the entire procedure very well and was sent to the recovery room in good condition. Dictated By: In Claudette Lilly MD /soo/rodger /Document#: [id number]
[2017-07-17] MEDS ORDERED: DILTIAZEM 25 MG INJ IV PRN (20:30)
[2017-07-17] MEDS: ATORVASTATIN 20 MG TAB PO SCH (21:12)
[2017-07-17] MEDS: METOPROLOL 25 MG TAB PO SCH (21:13)
[2017-07-17] MEDS: TAMSULOSIN (SR) 0.4 MG CAP PO SCH (21:13)
[2017-07-18] VITALS (19 sets, daily range): BP systolic 100–131; BP diastolic 56–84; PULSE 77–106; RESP 17–20
[2017-07-18] MEDS: D5W-0.45 NACL + KCL 20 MEQ 1,000 ML IV SCH ×4 (06:20→21:06)
[2017-07-18] MEDS: DOCUSATE SODIUM 100 MG CAP PO SCH ×2 (08:39→21:06)
[2017-07-18] MEDS: BUPROPION (SR) 150 MG TAB PO SCH (08:39)
[2017-07-18] MEDS: CARBIDOPA/LEVODOPA 25-100 (CR) TAB PO SCH ×4 (08:39→21:08)
[2017-07-18] MEDS: CEFAZOLIN 1 GM/50 ML (PMX) 50 ML IVPB SCH (08:39)
[2017-07-18] MEDS: METOPROLOL 25 MG TAB PO SCH ×2 (08:40→21:07)
[2017-07-18] MEDS: PANTOPRAZOLE (EC) 40 MG TAB PO SCH (08:40)
[2017-07-18] MEDS: MEMANTINE 10 MG TAB PO SCH ×2 (08:40→21:09)
[2017-07-18] MEDS: FUROSEMIDE 20 MG TAB PO SCH (08:41)
[2017-07-18] MEDS: ENOXAPARIN 40 MG/0.4 ML SYG SC SCH (08:52)
[2017-07-18 09:08] LABS: ABNORMAL IP MESSAGE 1; BASOPHILS % 0.2 % (0.0-2.0); EOSINOPHILS % 0.2 % (0.0-7.0); HEMATOCRIT 29.7 % (42.0-52.0); HEMOGLOBIN 9.3 g/dl (14.0-18.0); LYMPHOCYTES # 0.4 10^3/ul (0.8-2.9); LYMPHOCYTES % 3.5 % (15.0-51.0); MEAN CORPUSCULAR HEMOGLOBIN 30.6 pg (29.0-33.0); MEAN CORPUSCULAR HGB CONC 31.3 g/dl (32.0-37.0); MEAN CORPUSCULAR VOLUME 97.7 fl (82.0-101.0); MEAN PLATELET VOLUME 10.7 fl (7.4-10.4); MONOCYTE # 1.2 10^3/ul (0.3-0.9); MONOCYTES % 9.4 % (0.0-11.0); NEUTROPHIL # 10.9 10^3/ul (1.6-7.5); NEUTROPHILS % 86.3 % (39.0-77.0); PLATELET COUNT 207 10^3/UL (140-415); POSITIVE DIFF @See below; RED BLOOD COUNT 3.04 10^6/ul (4.70-6.10); RED CELL DISTRIBUTION WIDTH 15.8 % (11.5-14.5); WHITE BLOOD COUNT 12.6 10^3/ul (4.8-10.8)
[2017-07-18 09:10] LABS: MAGNESIUM 1.7 mg/dl (1.7-2.5); PHOSPHORUS 3.5 mg/dl (2.5-4.9)
[2017-07-18 09:14] LABS: CALCIUM 7.9 mg/dl (8.4-10.2); CREATININE 3.38 mg/dl (0.61-1.24); POTASSIUM 5.4 mmol/L (3.5-5.1)
--- NOTE | 2017-07-18 11:17 | PN ---
Date/Time of Note Date/Time of Note DATE: 07/18/17 TIME: 10:47 Assessment/Plan VTE Prophylaxis VTE Prophylaxis Intervention: LMWH Lines/Catheters IV Catheter Type (from Nrsg): Peripheral IV Urinary Cath still in place: No Assessment/Plan Assessment/Plan 89-year-old male with: 1. Left hip fracture status post left hemiarthroplasty and IT femoral head. Patient still in recovery at this point, he is POD#1 Follow-up postop recommendations from Dr. Lilly, we need PT eval with specific recommendations from orthopedic surgery Appreciate cardiology assistance. Pain control DVT prophylaxis with Lovenox for now, would recommend Eliquis for DVT prophylaxis outpatient post left hemiarthroplasty as the medication can be dosed renally 2.5 mg twice daily. Likely to need senior living facility placement 2. Chronic kidney disease, CKD 4-5, creatinine seems to be stable with no electrolytes abnormalities. Renal function hovering around likely baseline of 3 Continue to monitor Off lisinopril in setting of advanced kidney disease. 3. Hypertension. Continue metoprolol. Hydralazine as needed. Cardizem added as needed sinus tachycardia 4. Parkinson's with dementia. Continue home meds. Patient does have some disorientation but mostly cooperative and Venezuelan speaking only, currently on restraints, plan to discontinue restraints in the next 24 hours. 5. BPH. Continue Flomax Prophylaxis: Lovenox for DVT prophylaxis , Protonix for GI prophylaxis Disposition: PT eval today, follow-up further recommendations from orthopedic surgery. Follow-up cardiology recommendations. Case management to start looking for senior living facility placement likely by Friday 07/20 if remains stable and orthopedic surgery agreeable. Subjective 24 Hr Interval Summary Free Text/Dictation Patient awake, alert but seems disoriented however there is language barrier, he is Venezuelan speaking only. Still requiring restraints as of today, PT eval will be ordered. Plan to discontinue restraints in the next 24 hours. Patient will need placement in a senior living facility by the end of the week likely. Exam/Review of Systems Vital Signs Vitals Vital Signs Date Time Temp Pulse Resp B/P Pulse Ox O2 Delivery O2 Flow Rate FiO2 07/18/17 08:13 77 07/18/17 07:30 Nasal Cannula 2.0 07/18/17 07:08 98.0 20 106/66 98 Intake and Output 07/17/17 07/17/1707/18/17 15:00 23:00 07:00 Intake Total 1500 ml 775 ml 1400 ml Output Total 300 ml 450 ml Balance 1200 ml 775 ml 950 ml Exam Constitutional: alert, frail, oriented (x1 at least), other (Elderly) Respiratory: clear to auscultation, normal air movement Cardiovascular: nl pulses, regular rate and rhythm Gastrointestinal: non-tender, soft Musculoskeletal: nl extremities to inspection Extremities: normal pulses, other (No edema, clubbing or cyanosis) Neurological: TELECOM ENGINEER II-XII intact, nl mental status, nl speech, other (PT eval pending) Results Result Diagram: 07/18/17 0733 07/18/17 0733 Results 24 hrs Laboratory Tests Test 07/17/17 13:00 07/18/17 05:59 07/18/17 07:33 Hemoglobin 9.4 #L 9.3 L Hematocrit 29.7 #L 29.7 L Sodium Level 138 137 Potassium Level 4.8 5.4 H Chloride Level 113 H 114 H Carbon Dioxide Level 16 L 14 L Anion Gap 14 14 Blood Urea Nitrogen 30 H 35 H Creatinine 2.72 H 3.38 H Glucose Level 118 142 Calcium Level 7.0 L 7.9 L Lab Scanned Report BLOOD TRANSFUSION White Blood Count 12.6 #H Red Blood Count 3.04 #L Mean Corpuscular Volume 97.7 Mean Corpuscular Hemoglobin 30.6 Mean Corpuscular Hemoglobin Concent 31.3 L Red Cell Distribution Width 15.8 H Platelet Count 207 Mean Platelet Volume 10.7 H Neutrophils % 86.3 H Lymphocytes % 3.5 L Monocytes % 9.4 Eosinophils % 0.2 Basophils % 0.2 Nucleated Red Blood Cells % 0.0 Neutrophils # 10.9 H Lymphocytes # 0.4 L Monocytes # 1.2 H Eosinophils # 0.0 Basophils # 0.0 Nucleated Red Blood Cells # 0.0 Phosphorus Level 3.5 Magnesium Level 1.7 Imaging Free Text/Dictation PROCEDURE: Left hip x-ray CLINICAL INDICATION: Postoperative follow-up TECHNIQUE: AP left hip COMPARISON: Pelvis 07/17/[address] dated 07/13/2017 FINDINGS: The patient is status post left total hip replacement with intact hardware and alignment. The appearance of an endovascular aortic stent is superimposed over the mid sacrum. No acute fractures or dislocations are present. Vascular calcifications are noted compatible with atherosclerotic vascular disease IMPRESSION: 1. Status post left total hip replacement with intact hardware and stapled incision over the left proximal thigh 2. No evidence for dislocations 3. Aorta endovascular stent and mild atherosclerotic vascular disease Medications Medications Current Medications Ondansetron HCl (Zofran Inj) 4 mg Q6H PRN IV NAUSEA AND/OR VOMITING; Start at 14:30 Acetaminophen (Tylenol Tab) 650 mg Q6H PRN PO PAIN LEVEL 1-3 OR FEVER Last administered on 07/17/17 22:22; Admin Dose 650 MG; Start 07/13/17 at 14:30 Acetaminophen/ Hydrocodone Bitart ([place] (5/325)) 1 tab Q6H PRN PO MODERATE PAIN LEVEL 4-6 Last administered on 07/16/17 21:22; Admin Dose 1 TAB; Start 07/13/17 at 14:30 Morphine Sulfate (morphine) 2 mg Q4H PRN IV SEVERE PAIN LEVEL 7-10 Last administered on 07/17/17 14:51; Admin Dose 2 MG; Start 07/13/17 at 14:30 Docusate Sodium (Colace) 100 mg Q12H PRN PO CONSTIPATION; Start 07/13/17 at 14 :30 Magnesium Hydroxide (Milk Of Mag) 30 ml DAILY PRN PO CONSTIPATION; Start 07/13 at 14:30 Hydralazine HCl (Apresoline) 10 mg Q4H PRN IV SBP>170; Start 07/13/17 at 14:30 Bupropion HCl (Wellbutrin Sr) 150 mg DAILY PO Last administered on 07/18/17 08:39; Admin Dose 150 MG; Start 07/14/17 at 09:00 Carbidopa/Levodopa (Sinemet Cr (25/ 100)) 1 tab QID PO Last administered on 08:39; Admin Dose 1 TAB; Start 07/13/17 at 17:00 Docusate Sodium (Colace) 100 mg BID PO Last administered on 07/18/17 08:39; Admin Dose 100 MG; Start 07/13/17 at 21:00 Furosemide (Lasix) 20 mg DAILY PO Last administered on 07/18/17 08:41; Admin Dose 20 MG; Start 07/14/17 at 09:00 Tamsulosin HCl (Flomax) 0.4 mg HS PO Last administered on 07/17/17 21:13; Admin Dose 0.4 MG; Start 07/13/17 at 21:00 Pantoprazole (Protonix Tab) 40 mg DAILY PO Last administered on 07/18/17 08: 40; Admin Dose 40 MG; Start 07/14/17 at 09:00 Memantine (Namenda) 10 mg BID PO Last administered on 07/18/17 08:40; Admin Dose 10 MG; Start 07/13/17 at 21:00 Atorvastatin Calcium 20 mg 20 mg QHS PO Last administered on 07/17/17 21:12; Admin Dose 20 MG; Start 07/13/17 at 21:00 Potassium Chloride/Dextrose/ Sod Cl (D5-1/2ns + KCl 20 Meq) 1,000 ml @ 125 mls/ hr Q8H IV Last administered on 07/18/17 06:20; Admin Dose 125 MLS/HR; Start 07/17/17 at 12:10 Acetaminophen/ Hydrocodone Bitart ([place] (5/325)) 1 tab Q4H PRN PO PAIN LEVEL 1 -3; Start 07/17/17 at 12:30 Acetaminophen/ Hydrocodone Bitart ([place] (5/325)) 2 tab Q4H PRN PO PAIN LEVEL 4 -7; Start 07/17/17 at 12:30 Enoxaparin Sodium (Lovenox) 40 mg DAILY SC Last administered on 07/18/17 08: 52; Admin Dose 40 MG; Start 07/17/17 at 12:00; Status Future hold Morphine Sulfate (morphine) 3 mg Q3H PRN IV PAIN; Start 07/17/17 at 12:30 Metoprolol Tartrate (Lopressor) 25 mg BID PO Last administered on 07/17/17 21 :13; Admin Dose 25 MG; Start 07/17/17 at 21:00 Diltiazem HCl (Cardizem Iv) 10 mg Q4 PRN IV sustained hr>130; Start 07/17/17 at 20:30 MAGDALENO GUEVARA Jul 18, 2017 11:02
--- NOTE | 2017-07-18 13:48 | CONS ---
Date/Time of Note Date/Time of Note DATE: 07/18/17 TIME: 13:43 Assessment/Plan Assessment/Plan Additional Assessment/Plan Preoperative cardiac evaluation Status post hip surgery 07/17/2017 Paroxysmal tachycardia Preserved ejection fraction Acute on chronic kidney disease Acute blood loss anemia status post blood transfusion -Patient with intermittent episodes of tachycardia, unfortunately significant artifact on telemetry. Beta-bernice dose has been adjusted and no further episodes. Will continue on telemetry monitoring. IV Cardizem as needed. Given recurrent anemia requiring blood transfusion, would hold off on aspirin therapy. Consultation Date/Type/Reason Admit Date/Time Jul 13, 2017 at 12:45 Initial Consult Date Type of Consultation: cv 24 HR Interval Summary Free Text/Dictation Patient status post hip surgery yesterday. Episodes of tachycardia yesterday but improved after IV Cardizem and adjustment of beta-bernice. Otherwise no new cardiac issues as per nursing staff Exam/Review of Systems Vital Signs Vitals Vital Signs Date Time Temp Pulse Resp B/P Pulse Ox O2 Delivery O2 Flow Rate FiO2 07/18/17 12:08 93 07/18/17 11:01 97.7 20 127/68 95 07/18/17 07:30 Nasal Cannula 2.0 Intake and Output 07/17/17 07/17/17 07/18/17 15:00 23:00 07:00 Intake Total 1500 ml 775 ml 1400 ml Output Total 300 ml 450 ml Balance 1200 ml 775 ml 950 ml Exam Awake, confused at times, no apparent distress Constitutional: frail Head: normocephalic Respiratory: other (Coarse breath sounds bilaterally, no wheezing) Cardiovascular: other (S1-S2 heard), regular rate and rhythm Gastrointestinal: bowel sounds, non-tender, soft Extremities: edema Results Result Diagram: 07/18/17 0733 07/18/17 0733 Results 24 hrs Laboratory Tests Test 07/18/17 05:59 07/18/17 07:33 Lab Scanned Report BLOOD TRANSFUSION White Blood Count 12.6 #H Red Blood Count 3.04 #L Hemoglobin 9.3 L Hematocrit 29.7 L Mean Corpuscular Volume 97.7 Mean Corpuscular Hemoglobin 30.6 Mean Corpuscular Hemoglobin Concent 31.3 L Red Cell Distribution Width 15.8 H Platelet Count 207 Mean Platelet Volume 10.7 H Neutrophils % 86.3 H Lymphocytes % 3.5 L Monocytes % 9.4 Eosinophils % 0.2 Basophils % 0.2 Nucleated Red Blood Cells % 0.0 Neutrophils # 10.9 H Lymphocytes # 0.4 L Monocytes # 1.2 H Eosinophils # 0.0 Basophils # 0.0 Nucleated Red Blood Cells # 0.0 Sodium Level 137 Potassium Level 5.4 H Chloride Level 114 H Carbon Dioxide Level 14 L Anion Gap 14 Blood Urea Nitrogen 35 H Creatinine 3.38 H Glucose Level 142 Calcium Level 7.9 L Phosphorus Level 3.5 Magnesium Level 1.7 Medications Medications Current Medications Ondansetron HCl (Zofran Inj) 4 mg Q6H PRN IV NAUSEA AND/OR VOMITING; Start at 14:30 Acetaminophen (Tylenol Tab) 650 mg Q6H PRN PO PAIN LEVEL 1-3 OR FEVER Last administered on 07/17/17 22:22; Admin Dose 650 MG; Start 07/13/17 at 14:30 Acetaminophen/ Hydrocodone Bitart ([place] (5/325)) 1 tab Q6H PRN PO MODERATE PAIN LEVEL 4-6 Last administered on 07/16/17 21:22; Admin Dose 1 TAB; Start 07/13/17 at 14:30 Morphine Sulfate (morphine) 2 mg Q4H PRN IV SEVERE PAIN LEVEL 7-10 Last administered on 07/17/17 14:51; Admin Dose 2 MG; Start 07/13/17 at 14:30 Docusate Sodium (Colace) 100 mg Q12H PRN PO CONSTIPATION; Start 07/13/17 at 14 :30 Magnesium Hydroxide (Milk Of Mag) 30 ml DAILY PRN PO CONSTIPATION; Start 07/13 at 14:30 Hydralazine HCl (Apresoline) 10 mg Q4H PRN IV SBP>170; Start 07/13/17 at 14:30 Bupropion HCl (Wellbutrin Sr) 150 mg DAILY PO Last administered on 07/18/17 08:39; Admin Dose 150 MG; Start 07/14/17 at 09:00 Carbidopa/Levodopa (Sinemet Cr (25/ 100)) 1 tab QID PO Last administered on 13:01; Admin Dose 1 TAB; Start 07/13/17 at 17:00 Docusate Sodium (Colace) 100 mg BID PO Last administered on 07/18/17 08:39; Admin Dose 100 MG; Start 07/13/17 at 21:00 Furosemide (Lasix) 20 mg DAILY PO Last administered on 07/18/17 08:41; Admin Dose 20 MG; Start 07/14/17 at 09:00 Tamsulosin HCl (Flomax) 0.4 mg HS PO Last administered on 07/17/17 21:13; Admin Dose 0.4 MG; Start 07/13/17 at 21:00 Pantoprazole (Protonix Tab) 40 mg DAILY PO Last administered on 07/18/17 08: 40; Admin Dose 40 MG; Start 07/14/17 at 09:00 Memantine (Namenda) 10 mg BID PO Last administered on 07/18/17 08:40; Admin Dose 10 MG; Start 07/13/17 at 21:00 Atorvastatin Calcium 20 mg 20 mg QHS PO Last administered on 07/17/17 21:12; Admin Dose 20 MG; Start 07/13/17 at 21:00 Potassium Chloride/Dextrose/ Sod Cl (D5-1/2ns + KCl 20 Meq) 1,000 ml @ 125 mls/ hr Q8H IV Last administered on 07/18/17 13:01; Admin Dose 125 MLS/HR; Start 07/17/17 at 12:10 Acetaminophen/ Hydrocodone Bitart ([place] (5/325)) 1 tab Q4H PRN PO PAIN LEVEL 1 -3; Start 07/17/17 at 12:30 Acetaminophen/ Hydrocodone Bitart ([place] (5/325)) 2 tab Q4H PRN PO PAIN LEVEL 4 -7; Start 07/17/17 at 12:30 Enoxaparin Sodium (Lovenox) 40 mg DAILY SC Last administered on 07/18/17 08: 52; Admin Dose 40 MG; Start 07/17/17 at 12:00; Status Future hold Morphine Sulfate (morphine) 3 mg Q3H PRN IV PAIN; Start 07/17/17 at 12:30 Metoprolol Tartrate (Lopressor) 25 mg BID PO Last administered on 07/17/17 21 :13; Admin Dose 25 MG; Start 07/17/17 at 21:00 Diltiazem HCl (Cardizem Iv) 10 mg Q4 PRN IV sustained hr>130; Start 07/17/17 at 20:30 Dennis Schrader DO Jul 18, 2017 13:48
[2017-07-18] MEDS: ATORVASTATIN 20 MG TAB PO SCH (21:06)
[2017-07-18] MEDS: TAMSULOSIN (SR) 0.4 MG CAP PO SCH (21:06)
[2017-07-19] VITALS (10 sets, daily range): BP systolic 118–133; BP diastolic 60–86; PULSE 80–112; RESP 17–20
--- NOTE | 2017-07-19 03:44 | PN ---
DATE: 07/19/2017 SUBJECTIVE DATA: First postop day. Stable vital signs. Postop x-ray shows excellent alignment of the femoral components. H and H is 9.3/29.7. No signs of neurovascular compromise in the right lower extremity. To be mobilized as tolerated with physical therapy. He is progress with physical therapy may be slow because of his overall mental condition. Dictated By: In Claudette Lilly MD /soo/ronna /Document#: [id number]
[2017-07-19] MEDS: D5W-0.45 NACL + KCL 20 MEQ 1,000 ML IV SCH (04:10)
[2017-07-19 07:33] LABS: ABNORMAL IP MESSAGE 1; BASOPHILS % 0.1 % (0.0-2.0); EOSINOPHILS % 0.3 % (0.0-7.0); HEMOGLOBIN 8.9 g/dl (14.0-18.0); LYMPHOCYTES # 0.6 10^3/ul (0.8-2.9); MEAN CORPUSCULAR HEMOGLOBIN 30.9 pg (29.0-33.0); MEAN CORPUSCULAR HGB CONC 31.8 g/dl (32.0-37.0); MEAN CORPUSCULAR VOLUME 97.2 fl (82.0-101.0); MEAN PLATELET VOLUME 10.6 fl (7.4-10.4); MONOCYTE # 0.9 10^3/ul (0.3-0.9); MONOCYTES % 6.3 % (0.0-11.0); NEUTROPHIL # 12.4 10^3/ul (1.6-7.5); NEUTROPHILS % 88.9 % (39.0-77.0); PLATELET COUNT 236 10^3/UL (140-415); POSITIVE DIFF @See below; RED BLOOD COUNT 2.88 10^6/ul (4.70-6.10); RED CELL DISTRIBUTION WIDTH 15.9 % (11.5-14.5); WHITE BLOOD COUNT 13.9 10^3/ul (4.8-10.8)
[2017-07-19 08:04] LABS: CALCIUM 8.1 mg/dl (8.4-10.2); CREATININE 3.78 mg/dl (0.61-1.24); POTASSIUM 5.9 mmol/L (3.5-5.1)
[2017-07-19 08:10] LABS: MAGNESIUM 1.7 mg/dl (1.7-2.5); PHOSPHORUS 3.7 mg/dl (2.5-4.9)
[2017-07-19] MEDS: DOCUSATE SODIUM 100 MG CAP PO SCH ×2 (10:13→21:02)
[2017-07-19] MEDS: MEMANTINE 10 MG TAB PO SCH ×2 (10:14→21:04)
[2017-07-19] MEDS: CARBIDOPA/LEVODOPA 25-100 (CR) TAB PO SCH ×4 (10:14→21:04)
[2017-07-19] MEDS: FUROSEMIDE 20 MG TAB PO SCH (10:14)
[2017-07-19] MEDS: PANTOPRAZOLE (EC) 40 MG TAB PO SCH (10:15)
[2017-07-19] MEDS: METOPROLOL 25 MG TAB PO SCH ×2 (10:15→21:04)
[2017-07-19] MEDS: BUPROPION (SR) 150 MG TAB PO SCH (10:15)
[2017-07-19] MEDS: ENOXAPARIN 40 MG/0.4 ML SYG SC SCH (10:33)
--- NOTE | 2017-07-19 10:59 | CONS ---
Date/Time of Note Date/Time of Note DATE: 07/19/17 TIME: 10:56 Assessment/Plan Assessment/Plan Additional Assessment/Plan Preoperative cardiac evaluation Status post hip surgery 07/17/2017 Paroxysmal tachycardia Preserved ejection fraction Acute on chronic kidney disease Acute blood loss anemia status post blood transfusion -Patient with stable heart rate on telemetry over the past 24 hours. Beta- bernice dose was recently adjusted. Will continue on telemetry monitoring. IV Cardizem as needed. Given recurrent anemia requiring blood transfusion, would hold off on aspirin therapy. Patient hyperkalemic and getting IV fluids with IV potassium. I will DC IV fluids. Consultation Date/Type/Reason Admit Date/Time Jul 13, 2017 at 12:45 Type of Consultation: cv 24 HR Interval Summary Free Text/Dictation Patient seen and examined Exam/Review of Systems Vital Signs Vitals Vital Signs Date Time Temp Pulse Resp B/P Pulse Ox O2 Delivery O2 Flow Rate FiO2 07/19/17 08:00 92 07/19/17 07:24 98.0 18 125/76 93 07/18/17 20:00 Nasal Cannula 2.0 Intake and Output 07/18/17 07/18/17 07/19/17 14:59 22:59 06:59 Intake Total 1250 ml 50 ml Output Total 500 ml Balance 1250 ml -450 ml Exam No apparent distress Constitutional: alert Head: normocephalic Respiratory: other (Coarse breath sounds bilaterally, no wheezing) Cardiovascular: other (S1-S2 heard), regular rate and rhythm Gastrointestinal: bowel sounds, non-tender, soft Extremities: edema Results Result Diagram: 07/19/17 0641 07/19/17 0641 Results 24 hrs Laboratory Tests Test 07/19/17 06:41 White Blood Count 13.9 H Red Blood Count 2.88 L Hemoglobin 8.9 L Hematocrit 28.0 L Mean Corpuscular Volume 97.2 Mean Corpuscular Hemoglobin 30.9 Mean Corpuscular Hemoglobin Concent 31.8 L Red Cell Distribution Width 15.9 H Platelet Count 236 Mean Platelet Volume 10.6 H Neutrophils % 88.9 H Lymphocytes % 4.0 L Monocytes % 6.3 Eosinophils % 0.3 Basophils % 0.1 Nucleated Red Blood Cells % 0.0 Neutrophils # 12.4 H Lymphocytes # 0.6 L Monocytes # 0.9 Eosinophils # 0.0 Basophils # 0.0 Nucleated Red Blood Cells # 0.0 Sodium Level 136 Potassium Level 5.9 H Chloride Level 113 H Carbon Dioxide Level 14 L Anion Gap 15 Blood Urea Nitrogen 39 H Creatinine 3.78 H Glucose Level 129 Calcium Level 8.1 L Phosphorus Level 3.7 Magnesium Level 1.7 Medications Medications Current Medications Ondansetron HCl (Zofran Inj) 4 mg Q6H PRN IV NAUSEA AND/OR VOMITING; Start at 14:30 Acetaminophen (Tylenol Tab) 650 mg Q6H PRN PO PAIN LEVEL 1-3 OR FEVER Last administered on 07/17/17 22:22; Admin Dose 650 MG; Start 07/13/17 at 14:30 Acetaminophen/ Hydrocodone Bitart ([place] (5/325)) 1 tab Q6H PRN PO MODERATE PAIN LEVEL 4-6 Last administered on 07/16/17 21:22; Admin Dose 1 TAB; Start 07/13/17 at 14:30 Morphine Sulfate (morphine) 2 mg Q4H PRN IV SEVERE PAIN LEVEL 7-10 Last administered on 07/17/17 14:51; Admin Dose 2 MG; Start 07/13/17 at 14:30 Docusate Sodium (Colace) 100 mg Q12H PRN PO CONSTIPATION; Start 07/13/17 at 14 :30 Magnesium Hydroxide (Milk Of Mag) 30 ml DAILY PRN PO CONSTIPATION; Start 07/13 at 14:30 Hydralazine HCl (Apresoline) 10 mg Q4H PRN IV SBP>170; Start 07/13/17 at 14:30 Bupropion HCl (Wellbutrin Sr) 150 mg DAILY PO Last administered on 07/19/17 10:15; Admin Dose 150 MG; Start 07/14/17 at 09:00 Carbidopa/Levodopa (Sinemet Cr (25/ 100)) 1 tab QID PO Last administered on 10:14; Admin Dose 1 TAB; Start 07/13/17 at 17:00 Docusate Sodium (Colace) 100 mg BID PO Last administered on 07/19/17 10:13; Admin Dose 100 MG; Start 07/13/17 at 21:00 Furosemide (Lasix) 20 mg DAILY PO Last administered on 07/19/17 10:14; Admin Dose 20 MG; Start 07/14/17 at 09:00 Tamsulosin HCl (Flomax) 0.4 mg HS PO Last administered on 07/18/17 21:06; Admin Dose 0.4 MG; Start 07/13/17 at 21:00 Pantoprazole (Protonix Tab) 40 mg DAILY PO Last administered on 07/19/17 10: 15; Admin Dose 40 MG; Start 07/14/17 at 09:00 Memantine (Namenda) 10 mg BID PO Last administered on 07/19/17 10:14; Admin Dose 10 MG; Start 07/13/17 at 21:00 Atorvastatin Calcium 20 mg 20 mg QHS PO Last administered on 07/18/17 21:06; Admin Dose 20 MG; Start 07/13/17 at 21:00 Potassium Chloride/Dextrose/ Sod Cl (D5-1/2ns + KCl 20 Meq) 1,000 ml @ 125 mls/ hr Q8H IV Last administered on 07/19/17 04:10; Admin Dose 125 MLS/HR; Start 07/17/17 at 12:10 Acetaminophen/ Hydrocodone Bitart ([place] (5/325)) 1 tab Q4H PRN PO PAIN LEVEL 1 -3; Start 07/17/17 at 12:30 Acetaminophen/ Hydrocodone Bitart ([place] (5/325)) 2 tab Q4H PRN PO PAIN LEVEL 4 -7; Start 07/17/17 at 12:30 Enoxaparin Sodium (Lovenox) 40 mg DAILY SC Last administered on 07/19/17 10: 33; Admin Dose 40 MG; Start 07/17/17 at 12:00; Status Future hold Morphine Sulfate (morphine) 3 mg Q3H PRN IV PAIN; Start 07/17/17 at 12:30 Metoprolol Tartrate (Lopressor) 25 mg BID PO Last administered on 07/19/17 10 :15; Admin Dose 25 MG; Start 07/17/17 at 21:00 Diltiazem HCl (Cardizem Iv) 10 mg Q4 PRN IV sustained hr>130; Start 07/17/17 at 20:30 Dennis Schrader DO Jul 19, 2017 10:59
[2017-07-19] MEDS ORDERED: MAGNESIUM SULFATE 1 GM/D5W 100 ML IVPB ONE (11:00)
--- NOTE | 2017-07-19 12:27 | PN ---
Date/Time of Note Date/Time of Note DATE: 07/19/17 TIME: 12:19 Assessment/Plan VTE Prophylaxis VTE Prophylaxis Intervention: LMWH Lines/Catheters IV Catheter Type (from Nrsg): Saline Lock Urinary Cath still in place: No Assessment/Plan Assessment/Plan 89-year-old male with: 1. Left hip fracture status post left hemiarthroplasty and IT femoral head. POD #2 Appreciate postop recommendations from Dr. Lilly, PT ordered. Lovenox adjusted renally, will discuss with Dr. Lilly if okay to switch to Eliquis. Appreciate cardiology assistance. Pain control 2. Chronic kidney disease, CKD 4-5, creatinine increased a little bit, electrolyte abnormalities may be related to IV fluids is getting, he has been discontinued this morning. He is noted to have a metabolic acidosis, ABG pending as given advanced kidney disease patient will likely need supplemental bicarb. Continue to monitor renal function. Off lisinopril in setting of advanced kidney disease. 3. Hypertension. Continue metoprolol. Hydralazine as needed. Cardizem added as needed sinus tachycardia 4. Parkinson's with dementia. Continue home meds. Patient does have some disorientation but mostly cooperative and [place]i speaking only, DC restraints. 5. BPH. Continue Flomax Prophylaxis: Lovenox for DVT prophylaxis , Protonix for GI prophylaxis Disposition: PT eval today, follow-up further recommendations from orthopedic surgery. Follow-up cardiology recommendations. Follow-up ABG. Case management to start looking for long term facility placement likely by Friday 07/20 if remains stable and orthopedic surgery agreeable. Subjective 24 Hr Interval Summary Free Text/Dictation Patient is status post left hemiarthroplasty, postoperative day #2, physical therapy has been ordered. Restraints will be discontinued. Daughter at bedside currently and feeding patient. He remains hemodynamically stable, he does have advanced chronic kidney disease. Will discuss with orthopedic surgery okay to switch to Eliquis for DVT prophylaxis post hip surgery. Exam/Review of Systems Vital Signs Vitals Vital Signs Date Time Temp Pulse Resp B/P Pulse Ox O2 Delivery O2 Flow Rate FiO2 07/19/17 11:59 97.9 69 18 126/71 93 07/19/17 08:15 Nasal Cannula 2.0 Intake and Output 07/18/17 07/18/17 07/19/17 15:00 23:00 07:00 Intake Total 1250 ml 50 ml Output Total 500 ml Balance 1250 ml -450 ml Exam Constitutional: alert (Primary [place]i speaking, however not very verbal today.), frail, oriented (x1), other (Elderly) Respiratory: clear to auscultation, normal air movement Cardiovascular: nl pulses, regular rate and rhythm Gastrointestinal: non-tender, soft Musculoskeletal: nl extremities to inspection Extremities: normal pulses 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, other (Mental status seems to be at baseline according to daughter at the bedside, difficult therapy to evaluate today.) Results Result Diagram: 07/19/1764007/19/17640 Results 24 hrs Laboratory Tests Test 07/19/17 06:41 White Blood Count 13.9 H Red Blood Count 2.88 L Hemoglobin 8.9 L Hematocrit 28.0 L Mean Corpuscular Volume 97.2 Mean Corpuscular Hemoglobin 30.9 Mean Corpuscular Hemoglobin Concent 31.8 L Red Cell Distribution Width 15.9 H Platelet Count 236 Mean Platelet Volume 10.6 H Neutrophils % 88.9 H Lymphocytes % 4.0 L Monocytes % 6.3 Eosinophils % 0.3 Basophils % 0.1 Nucleated Red Blood Cells % 0.0 Neutrophils # 12.4 H Lymphocytes # 0.6 L Monocytes # 0.9 Eosinophils # 0.0 Basophils # 0.0 Nucleated Red Blood Cells # 0.0 Sodium Level 136 Potassium Level 5.9 H Chloride Level 113 H Carbon Dioxide Level 14 L Anion Gap 15 Blood Urea Nitrogen 39 H Creatinine 3.78 H Glucose Level 129 Calcium Level 8.1 L Phosphorus Level 3.7 Magnesium Level 1.7 Medications Medications Current Medications Ondansetron HCl (Zofran Inj) 4 mg Q6H PRN IV NAUSEA AND/OR VOMITING; Start at 14:30 Acetaminophen (Tylenol Tab) 650 mg Q6H PRN PO PAIN LEVEL 1-3 OR FEVER Last administered on 07/17/17 22:22; Admin Dose 650 MG; Start 07/13/17 at 14:30 Acetaminophen/ Hydrocodone Bitart ([place] (5/325)) 1 tab Q6H PRN PO MODERATE PAIN LEVEL 4-6 Last administered on 07/16/17 21:22; Admin Dose 1 TAB; Start 07/13/17 at 14:30 Morphine Sulfate (morphine) 2 mg Q4H PRN IV SEVERE PAIN LEVEL 7-10 Last administered on 07/17/17 14:51; Admin Dose 2 MG; Start 07/13/17 at 14:30 Docusate Sodium (Colace) 100 mg Q12H PRN PO CONSTIPATION; Start 07/13/17 at 14 :30 Magnesium Hydroxide (Milk Of Mag) 30 ml DAILY PRN PO CONSTIPATION; Start 07/13 at 14:30 Hydralazine HCl (Apresoline) 10 mg Q4H PRN IV SBP>170; Start 07/13/17 at 14:30 Bupropion HCl (Wellbutrin Sr) 150 mg DAILY PO Last administered on 07/19/17 10:15; Admin Dose 150 MG; Start 07/14/17 at 09:00 Carbidopa/Levodopa (Sinemet Cr ()) 1 tab QID PO Last administered on 10:14; Admin Dose 1 TAB; Start 07/13/17 at 17:00 Docusate Sodium (Colace) 100 mg BID PO Last administered on 07/19/17 10:13; Admin Dose 100 MG; Start 07/13/17 at 21:00 Furosemide (Lasix) 20 mg DAILY PO Last administered on 07/19/17 10:14; Admin Dose 20 MG; Start 07/14/17 at 09:00 Tamsulosin HCl (Flomax) 0.4 mg HS PO Last administered on 07/18/17 21:06; Admin Dose 0.4 MG; Start 07/13/17 at 21:00 Pantoprazole (Protonix Tab) 40 mg DAILY PO Last administered on 07/19/17 10: 15; Admin Dose 40 MG; Start 07/14/17 at 09:00 Memantine (Namenda) 10 mg BID PO Last administered on 07/19/17 10:14; Admin Dose 10 MG; Start 07/13/17 at 21:00 Atorvastatin Calcium (Lipitor) 20 mg QHS PO Last administered on 07/18/17 21: 06; Admin Dose 20 MG; Start 07/13/17 at 21:00 Acetaminophen/ Hydrocodone Bitart ([place] (5/325)) 1 tab Q4H PRN PO PAIN LEVEL 1 -3; Start 07/17/17 at 12:30 Acetaminophen/ Hydrocodone Bitart ([place] (5/325)) 2 tab Q4H PRN PO PAIN LEVEL 4 -7; Start 07/17/17 at 12:30 Enoxaparin Sodium (Lovenox) 40 mg DAILY SC Last administered on 07/19/17 10: 33; Admin Dose 40 MG; Start 07/17/17 at 12:00; Status Future hold Morphine Sulfate (morphine) 3 mg Q3H PRN IV PAIN; Start 07/17/17 at 12:30 Metoprolol Tartrate (Lopressor) 25 mg BID PO Last administered on 07/19/17 10 :15; Admin Dose 25 MG; Start 07/17/17 at 21:00 Diltiazem HCl (Cardizem Iv) 10 mg Q4 PRN IV sustained hr>130; Start 07/17/17 at 20:30 MAGDALENO GUEVARA Jul 19, 2017 12:27
[2017-07-19] MEDS ORDERED: NA BICARBONATE 650 MG TAB PO SCH (17:55)
[2017-07-19] MEDS: ATORVASTATIN 20 MG TAB PO SCH (21:02)
[2017-07-19] MEDS: TAMSULOSIN (SR) 0.4 MG CAP PO SCH (21:02)
[2017-07-19 22:08] LABS: AADO2 Arterial 42.6 mmHg (7.0-24.0); Allen Test ACCEPTAB; Arterial Base Excess -13.2 mmol/L (-3.0-3); Arterial COHb 0.3 % (0.0-3.0); Arterial Fraction of Oxyhgb 95.8 % (93.0-99.0); Arterial MetHb 0 % (0.0-1.5); Arterial Total Hemglobin 10.6 g/dl (12.0-18.0); MODE ROOM AIR
[2017-07-20] VITALS (12 sets, daily range): BP systolic 116–148; BP diastolic 59–77; PULSE 76–90; RESP 20–21
[2017-07-20] MEDS: morphine 2 MG INJ IV PRN (02:58)
[2017-07-20 06:13] LABS: BASOPHILS % 0.1 % (0.0-2.0); EOSINOPHILS # 0.2 10^3/ul (0.0-0.5); EOSINOPHILS % 1.5 % (0.0-7.0); HEMATOCRIT 28.7 % (42.0-52.0); HEMOGLOBIN 8.8 g/dl (14.0-18.0); LYMPHOCYTES % 7.2 % (15.0-51.0); MEAN CORPUSCULAR HEMOGLOBIN 30.6 pg (29.0-33.0); MEAN CORPUSCULAR HGB CONC 30.7 g/dl (32.0-37.0); MEAN CORPUSCULAR VOLUME 99.7 fl (82.0-101.0); MEAN PLATELET VOLUME 10.7 fl (7.4-10.4); MONOCYTE # 0.8 10^3/ul (0.3-0.9); MONOCYTES % 5.6 % (0.0-11.0); NEUTROPHIL # 11.5 10^3/ul (1.6-7.5); NEUTROPHILS % 84.9 % (39.0-77.0); PLATELET COUNT 288 10^3/UL (140-415); RED BLOOD COUNT 2.88 10^6/ul (4.70-6.10); RED CELL DISTRIBUTION WIDTH 15.9 % (11.5-14.5); WHITE BLOOD COUNT 13.5 10^3/ul (4.8-10.8)
[2017-07-20 06:38] LABS: MAGNESIUM 2.1 mg/dl (1.7-2.5); PHOSPHORUS 4.5 mg/dl (2.5-4.9)
[2017-07-20 07:05] LABS: CALCIUM 8.2 mg/dl (8.4-10.2); CREATININE 4.34 mg/dl (0.61-1.24)
[2017-07-20 07:26] LABS: POTASSIUM 6.3 mmol/L (3.5-5.1)
[2017-07-20] MEDS: FUROSEMIDE 20 MG TAB PO SCH (08:40)
[2017-07-20] MEDS: BUPROPION (SR) 150 MG TAB PO SCH (08:40)
[2017-07-20] MEDS: MEMANTINE 10 MG TAB PO SCH ×2 (08:41→20:44)
[2017-07-20] MEDS: METOPROLOL 25 MG TAB PO SCH ×2 (08:41→20:46)
[2017-07-20] MEDS: DOCUSATE SODIUM 100 MG CAP PO SCH ×2 (08:42→20:44)
[2017-07-20] MEDS: PANTOPRAZOLE (EC) 40 MG TAB PO SCH (08:42)
[2017-07-20] MEDS: CARBIDOPA/LEVODOPA 25-100 (CR) TAB PO SCH ×4 (08:42→20:46)
--- NOTE | 2017-07-20 08:43 | PN ---
Date/Time of Note Date/Time of Note DATE: 07/20/17 TIME: 08:41 Assessment/Plan VTE Prophylaxis VTE Prophylaxis Intervention: SCD's Lines/Catheters IV Catheter Type (from Nrs): Saline Lock Urinary Cath still in place: No Assessment/Plan Chief Complaint/Hosp Course This is an 89-year-old gentleman with Vietnamese speaking. The patient states that he fell off a couch just prior to arrival. He denies hitting his head or losing consciousness. He denies any prodrome of chest pain or shortness of breath, no abdominal pain or back pain. He has no cardiac history with no angina or CHF symptoms with sinus tachycardia by ekg Problems: Assessment/Plan Status post hip surgery 07/17/2017 Paroxysmal tachycardia Preserved ejection fraction Acute on chronic kidney disease Acute blood loss anemia status post blood transfusion -Patient with stable heart rate on telemetry over the past 24 hours. Beta- bernice dose was recently adjusted. Will continue on telemetry monitoring. IV Cardizem as needed. Given recurrent anemia requiring blood transfusion, would hold off on aspirin therapy. Subjective 24 Hr Interval Summary Free Text/Dictation The pateint with no change Exam/Review of Systems Vital Signs Vitals Vital Signs Date Time Temp Pulse Resp B/P Pulse Ox O2 Delivery O2 Flow Rate FiO2 07/20/17 08:10 76 07/20/17 07:41 97.6 21 148/77 94 07/19/17 08:15 Nasal Cannula 2.0 Intake and Output 07/19/17 07/19/17 07/20/17 15:00 23:00 07:00 Intake Total 100 ml Output Total 600 ml 400 ml Balance -600 ml -300 ml Results Result Diagram: 07/20/17 0534 07/20/17 0534 Results 24 hrs Laboratory Tests Test 07/19/17 12:56 07/20/17 05:34 Blood Gas Specimen Source Blood arterial Arterial Blood Date Drawn 07/19/2017 1:40:38 PM Arterial Blood pH (Temp corrected) 7.322 L Arterial Blood pCO2 (Temp correct) 21.8 L Arterial Blood pO2 (Temp corrected) 81.0 Arterial Blood HCO3 11.0 L Arterial Blood Base Excess -13.2 L Arterial Blood Oxygen Saturation 96.1 Shimon Test ACCEPTAB Arterial Blood Gas Puncture Site Right Radial Arterial Blood Carboxyhemoglobin 0.3 Arterial Blood Methemoglobin 0 Blood Gas A-a O2 Differential 42.6 H Oxyhemoglobin Percent 95.8 Total Hemoglobin 10.6 L Blood Gas Temperature 37.0 Blood Gas Modality ROOM AIR FiO2 21.0 Blood Gas Notified Whom JLD Blood Gas Notified Time 07/19/2017 1:55:14 PM White Blood Count 13.5 H Red Blood Count 2.88 L Hemoglobin 8.8 L Hematocrit 28.7 L Mean Corpuscular Volume 99.7 Mean Corpuscular Hemoglobin 30.6 Mean Corpuscular Hemoglobin Concent 30.7 L Red Cell Distribution Width 15.9 H Platelet Count 288 # Mean Platelet Volume 10.7 H Neutrophils % 84.9 H Lymphocytes % 7.2 L Monocytes % 5.6 Eosinophils % 1.5 Basophils % 0.1 Nucleated Red Blood Cells % 0.0 Neutrophils # 11.5 H Lymphocytes # 1.0 Monocytes # 0.8 Eosinophils # 0.2 Basophils # 0.0 Nucleated Red Blood Cells # 0.0 Sodium Level 135 Potassium Level 6.3 *H Chloride Level 112 H Carbon Dioxide Level 13 L Anion Gap 16 Blood Urea Nitrogen 46 H Creatinine 4.34 H Glucose Level 100 Calcium Level 8.2 L Phosphorus Level 4.5 Magnesium Level 2.1 Medications Medications Current Medications Ondansetron HCl (Zofran Inj) 4 mg Q6H PRN IV NAUSEA AND/OR VOMITING; Start at 14:30 Acetaminophen (Tylenol Tab) 650 mg Q6H PRN PO PAIN LEVEL 1-3 OR FEVER Last administered on 07/17/17 22:22; Admin Dose 650 MG; Start 07/13/17 at 14:30 Acetaminophen/ Hydrocodone Bitart ([place] (5/325)) 1 tab Q6H PRN PO MODERATE PAIN LEVEL 4-6 Last administered on 07/16/17 21:22; Admin Dose 1 TAB; Start 07/13/17 at 14:30 Morphine Sulfate (morphine) 2 mg Q4H PRN IV SEVERE PAIN LEVEL 7-10 Last administered on 07/20/17 02:58; Admin Dose 2 MG; Start 07/13/17 at 14:30 Docusate Sodium (Colace) 100 mg Q12H PRN PO CONSTIPATION; Start 07/13/17 at 14 :30 Magnesium Hydroxide (Milk Of Mag) 30 ml DAILY PRN PO CONSTIPATION; Start 07/13 at 14:30 Hydralazine HCl (Apresoline) 10 mg Q4H PRN IV SBP>170; Start 07/13/17 at 14:30 Bupropion HCl (Wellbutrin Sr) 150 mg DAILY PO Last administered on 07/19/17 10:15; Admin Dose 150 MG; Start 07/14/17 at 09:00 Carbidopa/Levodopa (Sinemet Cr (25/ 100)) 1 tab QID PO Last administered on 21:04; Admin Dose 1 TAB; Start 07/13/17 at 17:00 Docusate Sodium (Colace) 100 mg BID PO Last administered on 07/19/17 21:02; Admin Dose 100 MG; Start 07/13/17 at 21:00 Furosemide (Lasix) 20 mg DAILY PO Last administered on 07/19/17 10:14; Admin Dose 20 MG; Start 07/14/17 at 09:00 Tamsulosin HCl (Flomax) 0.4 mg HS PO Last administered on 07/19/17 21:02; Admin Dose 0.4 MG; Start 07/13/17 at 21:00 Pantoprazole (Protonix Tab) 40 mg DAILY PO Last administered on 07/19/17 10: 15; Admin Dose 40 MG; Start 07/14/17 at 09:00 Memantine (Namenda) 10 mg BID PO Last administered on 07/19/17 21:04; Admin Dose 10 MG; Start 07/13/17 at 21:00 Atorvastatin Calcium (Lipitor) 20 mg QHS PO Last administered on 07/19/17 21: 02; Admin Dose 20 MG; Start 07/13/17 at 21:00 Acetaminophen/ Hydrocodone Bitart ([place] (5/325)) 1 tab Q4H PRN PO PAIN LEVEL 1 -3; Start 07/17/17 at 12:30 Acetaminophen/ Hydrocodone Bitart ([place] (5/325)) 2 tab Q4H PRN PO PAIN LEVEL 4 -7; Start 07/17/17 at 12:30 Morphine Sulfate (morphine) 3 mg Q3H PRN IV PAIN; Start 07/17/17 at 12:30 Metoprolol Tartrate (Lopressor) 25 mg BID PO Last administered on 07/19/17 21 :04; Admin Dose 25 MG; Start 07/17/17 at 21:00 Diltiazem HCl (Cardizem Iv) 10 mg Q4 PRN IV sustained hr>130; Start 07/17/17 at 20:30 Enoxaparin Sodium (Lovenox) 30 mg DAILY SC ; Start 07/20/17 at 09:00 HORTENCIA TALBOT MD Jul 20, 2017 08:43
[2017-07-20] MEDS: ENOXAPARIN 30 MG/0.3 ML SYG SC SCH (08:57)
--- NOTE | 2017-07-20 09:22 | CONS ---
Date/Time of Note Date/Time of Note DATE: 07/20/17 TIME: 09:22 Assessment/Plan Assessment/Plan Additional Assessment/Plan 1. Acute hyperkalemia K 6.0 2. TORIN on CKD IV- worsening renal failure 3. severe metabolic acidosis 4. H/o CKD IV 5. s/p left hip hemiarthroplasty for left hip fracture 6. Hypertension 7. Parkinson dementia Plan : Thanks for consultation, I will order ABG stat, Urine studies including urine sodium, urine prot/cr ration, Urine eosinophils kayexalate 30gram POx 1 dose now BP stable start HCo3 drip with D5W 100mEQ NAHCO3 at 80 cc/hr wll continue to follow up with You Keep pt on telemetry floor very poor candidate for renal replacement therapy if Cr dont improve due to his age, comorbidiites and bedridden status Consultation Date/Type/Reason Admit Date/Time Jul 13, 2017 at 12:45 Date of Consultation: Jul 20, 2017 Type of Consultation: NEPHROLOGY Reason for Consultation acute kidney injury on CKD, Severe metabolic acidosis, Acute hyperkalemia Referring Provider: MAGDALENO GUEVARA Hx of Present Illness 89 M with PMhx of CKD IV, Parkinson demential, HTN who admitted with left hip fracture, now underwent left hemiarthroplasty and IT femoral head. pt post op course notable for worsening renal failure and worsening metabolic acidosis. BP also high, renal has been consulted for TORIN on CKD worsening , acute hyperkalemia with K 6.0fluid overalod and metaboilc acidosis. Subjective hx not possible: pt non-verbal Past Medical History Medical History: hypertension, renal disease, other (parkinson dementia ) Past Surgical History Past Surgical Hx: other (heart surgery, arotic aneurysm surgery ) Family History Significant Family History: no pertinent family hx Social History Alcohol Use: none Smoking Status: Former smoker Drug Use: none Exam/Review of Systems Vital Signs Vitals Vital Signs Date Time Temp Pulse Resp B/P Pulse Ox O2 Delivery O2 Flow Rate FiO2 07/20/17 08:10 76 07/20/17 07:41 97.6 21 148/77 94 07/19/17 08:15 Nasal Cannula 2.0 Intake and Output 07/19/17 07/19/17 07/20/17 15:00 23:00 07:00 Intake Total 100 ml Output Total 600 ml 400 ml Balance -600 ml -300 ml Exam Constitutional: non-verbal Head: normocephalic Eyes: nl conjunctiva ENMT: nl external ears & nose Neck: non-tender, supple Respiratory: congested cough, crackles/rales, diminished breath sounds Cardiovascular: nl pulses, regular rate and rhythm Gastrointestinal: non-tender, soft Musculoskeletal: nl extremities to inspection Extremities: normal pulses Neurological: confused, lethargic, other (not following commands ) Results Result Diagram: 07/20/17 0534 07/20/17 0534 Results 24 hrs Laboratory Tests Test 07/19/17 12:56 07/20/17 05:34 Blood Gas Specimen Source Blood arterial Arterial Blood Date Drawn 07/19/2017 1:40:38 PM Arterial Blood pH (Temp corrected) 7.322 L Arterial Blood pCO2 (Temp correct) 21.8 L Arterial Blood pO2 (Temp corrected) 81.0 Arterial Blood HCO3 11.0 L Arterial Blood Base Excess -13.2 L Arterial Blood Oxygen Saturation 96.1 Shimon Test ACCEPTAB Arterial Blood Gas Puncture Site Right Radial Arterial Blood Carboxyhemoglobin 0.3 Arterial Blood Methemoglobin 0 Blood Gas A-a O2 Differential 42.6 H Oxyhemoglobin Percent 95.8 Total Hemoglobin 10.6 L Blood Gas Temperature 37.0 Blood Gas Modality ROOM AIR FiO2 21.0 Blood Gas Notified Whom JLD Blood Gas Notified Time 07/19/2017 1:55:14 PM White Blood Count 13.5 H Red Blood Count 2.88 L Hemoglobin 8.8 L Hematocrit 28.7 L Mean Corpuscular Volume 99.7 Mean Corpuscular Hemoglobin 30.6 Mean Corpuscular Hemoglobin Concent 30.7 L Red Cell Distribution Width 15.9 H Platelet Count 288 # Mean Platelet Volume 10.7 H Neutrophils % 84.9 H Lymphocytes % 7.2 L Monocytes % 5.6 Eosinophils % 1.5 Basophils % 0.1 Nucleated Red Blood Cells % 0.0 Neutrophils # 11.5 H Lymphocytes # 1.0 Monocytes # 0.8 Eosinophils # 0.2 Basophils # 0.0 Nucleated Red Blood Cells # 0.0 Sodium Level 135 Potassium Level 6.3 *H Chloride Level 112 H Carbon Dioxide Level 13 L Anion Gap 16 Blood Urea Nitrogen 46 H Creatinine 4.34 H Glucose Level 100 Calcium Level 8.2 L Phosphorus Level 4.5 Magnesium Level 2.1 Medications Medications Current Medications Ondansetron HCl (Zofran Inj) 4 mg Q6H PRN IV NAUSEA AND/OR VOMITING; Start at 14:30 Acetaminophen (Tylenol Tab) 650 mg Q6H PRN PO PAIN LEVEL 1-3 OR FEVER Last administered on 07/17/17 22:22; Admin Dose 650 MG; Start 07/13/17 at 14:30 Acetaminophen/ Hydrocodone Bitart ([place] (5/325)) 1 tab Q6H PRN PO MODERATE PAIN LEVEL 4-6 Last administered on 07/16/17 21:22; Admin Dose 1 TAB; Start 07/13/17 at 14:30 Morphine Sulfate (morphine) 2 mg Q4H PRN IV SEVERE PAIN LEVEL 7-10 Last administered on 07/20/17 02:58; Admin Dose 2 MG; Start 07/13/17 at 14:30 Docusate Sodium (Colace) 100 mg Q12H PRN PO CONSTIPATION; Start 07/13/17 at 14 :30 Magnesium Hydroxide (Milk Of Mag) 30 ml DAILY PRN PO CONSTIPATION; Start 07/13 at 14:30 Hydralazine HCl (Apresoline) 10 mg Q4H PRN IV SBP>170; Start 07/13/17 at 14:30 Bupropion HCl (Wellbutrin Sr) 150 mg DAILY PO Last administered on 07/20/17 08 :40; Admin Dose 150 MG; Start 07/14/17 at 09:00 Carbidopa/Levodopa (Sinemet Cr (25/ 100)) 1 tab QID PO Last administered on 08:42; Admin Dose 1 TAB; Start 07/13/17 at 17:00 Docusate Sodium (Colace) 100 mg BID PO Last administered on 07/20/17 08:42; Admin Dose 100 MG; Start 07/13/17 at 21:00 Furosemide (Lasix) 20 mg DAILY PO Last administered on 07/20/17 08:40; Admin Dose 20 MG; Start 07/14/17 at 09:00 Tamsulosin HCl (Flomax) 0.4 mg HS PO Last administered on 07/19/17 21:02; Admin Dose 0.4 MG; Start 07/13/17 at 21:00 Pantoprazole (Protonix Tab) 40 mg DAILY PO Last administered on 07/20/17 08:42 ; Admin Dose 40 MG; Start 07/14/17 at 09:00 Memantine (Namenda) 10 mg BID PO Last administered on 07/20/17 08:41; Admin Dose 10 MG; Start 07/13/17 at 21:00 Atorvastatin Calcium (Lipitor) 20 mg QHS PO Last administered on 07/19/17 21: 02; Admin Dose 20 MG; Start 07/13/17 at 21:00 Acetaminophen/ Hydrocodone Bitart ([place] (5/325)) 1 tab Q4H PRN PO PAIN LEVEL 1 -3; Start 07/17/17 at 12:30 Acetaminophen/ Hydrocodone Bitart ([place] (5/325)) 2 tab Q4H PRN PO PAIN LEVEL 4 -7; Start 07/17/17 at 12:30 Morphine Sulfate (morphine) 3 mg Q3H PRN IV PAIN; Start 07/17/17 at 12:30 Metoprolol Tartrate (Lopressor) 25 mg BID PO Last administered on 07/20/17 08: 41; Admin Dose 25 MG; Start 07/17/17 at 21:00 Diltiazem HCl (Cardizem Iv) 10 mg Q4 PRN IV sustained hr>130; Start 07/17/17 at 20:30 Enoxaparin Sodium 30 mg 30 mg DAILY SC Last administered on 07/20/17 08:57; Admin Dose 30 MG; Start 07/20/17 at 09:00 Sodium Bicarbonate/ Dextrose (Na Bicarb/D5W) 1,150 ml @ 80 mls/hr [id number] IV ; Start 07/20/17 at 09:30; Status ARMNE SHARP MD Jul 20, 2017 09:22
[2017-07-20] MEDS ORDERED: NA POLYST SULFON 15 GM/60 ML BTL PO ONE (09:30)
[2017-07-20] MEDS ORDERED: SODIUM BICARBONATE (IV ADD) 150 MEQ in DEXTROSE 5% 1,000 ML IV SCH (09:30)
[2017-07-20 10:15] LABS: AADO2 Arterial 46.4 mmHg (7.0-24.0); Allen Test ACCEPTAB; Arterial Base Excess -13.2 mmol/L (-3.0-3); Arterial COHb 0.3 % (0.0-3.0); Arterial Fraction of Oxyhgb 94.2 % (93.0-99.0); Arterial HCO3 11.6 mmol/L (22.0-26.0); Arterial MetHb 0.2 % (0.0-1.5); MODE ROOM AIR
--- NOTE | 2017-07-20 10:16 | PN ---
Date/Time of Note Date/Time of Note DATE: 07/20/17 TIME: 10:06 Assessment/Plan VTE Prophylaxis VTE Prophylaxis Intervention: LMWH Lines/Catheters IV Catheter Type (from Nrsg): Saline Lock Urinary Cath still in place: No Assessment/Plan Assessment/Plan 89-year-old male with: 1. Left hip fracture status post left hemiarthroplasty and IT femoral head. POD #3 Appreciate postop recommendations from Dr. Lilly, PT ordered. Lovenox adjusted renally, will discuss with Dr. Lilly if okay to switch to Eliquis. Appreciate cardiology assistance. Pain control 2. Acute kidney injury on chronic kidney disease, CKD 4-5, creatinine increased further an outpatient with significant electrolyte abnormalities including hyperkalemia and ongoing metabolic acidosis despite oral bicarb which was started yesterday. Repeat ABG today, ABG yesterday with pH of 7.3. Renal ultrasound pending, urine studies pending, Dr. Kyler Rivera has been consulted and seen patient. Appreciate recommendations from Dr. Rivera Continue to monitor renal function and Roca catheter to be placed per nephrology. Off lisinopril in setting of advanced kidney disease. 3. Hypertension. Continue metoprolol. Hydralazine as needed. Cardizem added as needed sinus tachycardia 4. Parkinson's with dementia. Continue home meds. Patient does have some disorientation but mostly cooperative and [place] speaking only, off restraints however per speech therapy not safe to swallow this morning, patient n.p.o. except for medications. 5. BPH. Continue Flomax Prophylaxis: Lovenox for DVT prophylaxis , Protonix for GI prophylaxis Disposition: PT eval today, follow-up further recommendations from orthopedic surgery. Follow-up ABG and further nephrology recommendations based on workup today. Discharge planning to detention facility when patient stable. According to case management they are securing a bed at [facility] and family is agreeable with that facility. Subjective 24 Hr Interval Summary Free Text/Dictation Patient primarily [place]ian speaking, also with a Parkinson and dementia, at baseline seems to be only responding to daughter primarily. Was evaluated by speech therapy this morning, for now putting and p.o. except for medications. Patient also noted to have worsening renal function despite change of IV fluids yesterday he is hyperkalemic today, nephrology consulted, appreciate recommendation and changes Exam/Review of Systems Vital Signs Vitals Vital Signs Date Time Temp Pulse Resp B/P Pulse Ox O2 Delivery O2 Flow Rate FiO2 07/20/17 08:10 76 07/20/17 07:41 97.6 21 148/77 94 07/19/17 08:15 Nasal Cannula 2.0 Intake and Output 07/19/17 07/19/17 07/20/17 15:00 23:00 07:00 Intake Total 100 ml Output Total 600 ml 400 ml Balance -600 ml -300 ml Exam Constitutional: alert, frail, other (Patient not very verbal due to language barrier and also dementia) Respiratory: clear to auscultation, normal air movement Cardiovascular: nl pulses, regular rate and rhythm Gastrointestinal: non-tender, soft Musculoskeletal: nl extremities to inspection Extremities: normal pulses Neurological: HERD TESTER II-XII intact, confused, lethargic, other (Awake, moving all 4 extremities) Results Result Diagram: 07/20/17 0534 07/20/17 0534 Results 24 hrs Laboratory Tests Test 07/19/17 12:56 07/20/17 05:34 Blood Gas Specimen Source Blood arterial Arterial Blood Date Drawn 07/19/2017 1:40:38 PM Arterial Blood pH (Temp corrected) 7.322 L Arterial Blood pCO2 (Temp correct) 21.8 L Arterial Blood pO2 (Temp corrected) 81.0 Arterial Blood HCO3 11.0 L Arterial Blood Base Excess -13.2 L Arterial Blood Oxygen Saturation 96.1 Shimon Test ACCEPTAB Arterial Blood Gas Puncture Site Right Radial Arterial Blood Carboxyhemoglobin 0.3 Arterial Blood Methemoglobin 0 Blood Gas A-a O2 Differential 42.6 H Oxyhemoglobin Percent 95.8 Total Hemoglobin 10.6 L Blood Gas Temperature 37.0 Blood Gas Modality ROOM AIR FiO2 21.0 Blood Gas Notified Whom JLD Blood Gas Notified Time 07/19/2017 1:55:14 PM White Blood Count 13.5 H Red Blood Count 2.88 L Hemoglobin 8.8 L Hematocrit 28.7 L Mean Corpuscular Volume 99.7 Mean Corpuscular Hemoglobin 30.6 Mean Corpuscular Hemoglobin Concent 30.7 L Red Cell Distribution Width 15.9 H Platelet Count 288 # Mean Platelet Volume 10.7 H Neutrophils % 84.9 H Lymphocytes % 7.2 L Monocytes % 5.6 Eosinophils % 1.5 Basophils % 0.1 Nucleated Red Blood Cells % 0.0 Neutrophils # 11.5 H Lymphocytes # 1.0 Monocytes # 0.8 Eosinophils # 0.2 Basophils # 0.0 Nucleated Red Blood Cells # 0.0 Sodium Level 135 Potassium Level 6.3 *H Chloride Level 112 H Carbon Dioxide Level 13 L Anion Gap 16 Blood Urea Nitrogen 46 H Creatinine 4.34 H Glucose Level 100 Calcium Level 8.2 L Phosphorus Level 4.5 Magnesium Level 2.1 Medications Medications Current Medications Ondansetron HCl (Zofran Inj) 4 mg Q6H PRN IV NAUSEA AND/OR VOMITING; Start at 14:30 Acetaminophen (Tylenol Tab) 650 mg Q6H PRN PO PAIN LEVEL 1-3 OR FEVER Last administered on 07/17/17 22:22; Admin Dose 650 MG; Start 07/13/17 at 14:30 Acetaminophen/ Hydrocodone Bitart ([place] (5/325)) 1 tab Q6H PRN PO MODERATE PAIN LEVEL 4-6 Last administered on 07/16/17 21:22; Admin Dose 1 TAB; Start 07/13/17 at 14:30 Morphine Sulfate (morphine) 2 mg Q4H PRN IV SEVERE PAIN LEVEL 7-10 Last administered on 07/20/17 02:58; Admin Dose 2 MG; Start 07/13/17 at 14:30 Docusate Sodium (Colace) 100 mg Q12H PRN PO CONSTIPATION; Start 07/13/17 at 14 :30 Magnesium Hydroxide (Milk Of Mag) 30 ml DAILY PRN PO CONSTIPATION; Start 07/13 at 14:30 Hydralazine HCl (Apresoline) 10 mg Q4H PRN IV SBP>170; Start 07/13/17 at 14:30 Bupropion HCl (Wellbutrin Sr) 150 mg DAILY PO Last administered on 07/20/17 08 :40; Admin Dose 150 MG; Start 07/14/17 at 09:00 Carbidopa/Levodopa (Sinemet Cr (25/ 100)) 1 tab QID PO Last administered on 08:42; Admin Dose 1 TAB; Start 07/13/17 at 17:00 Docusate Sodium (Colace) 100 mg BID PO Last administered on 07/20/17 08:42; Admin Dose 100 MG; Start 07/13/17 at 21:00 Tamsulosin HCl (Flomax) 0.4 mg HS PO Last administered on 07/19/17 21:02; Admin Dose 0.4 MG; Start 07/13/17 at 21:00 Pantoprazole (Protonix Tab) 40 mg DAILY PO Last administered on 07/20/17 08:42 ; Admin Dose 40 MG; Start 07/14/17 at 09:00 Memantine (Namenda) 10 mg BID PO Last administered on 07/20/17 08:41; Admin Dose 10 MG; Start 07/13/17 at 21:00 Atorvastatin Calcium (Lipitor) 20 mg QHS PO Last administered on 07/19/17 21: 02; Admin Dose 20 MG; Start 07/13/17 at 21:00 Acetaminophen/ Hydrocodone Bitart ([place] (5/325)) 1 tab Q4H PRN PO PAIN LEVEL 1 -3; Start 07/17/17 at 12:30 Acetaminophen/ Hydrocodone Bitart ([place] (5/325)) 2 tab Q4H PRN PO PAIN LEVEL 4 -7; Start 07/17/17 at 12:30 Morphine Sulfate (morphine) 3 mg Q3H PRN IV PAIN; Start 07/17/17 at 12:30 Metoprolol Tartrate (Lopressor) 25 mg BID PO Last administered on 07/20/17 08: 41; Admin Dose 25 MG; Start 07/17/17 at 21:00 Diltiazem HCl (Cardizem Iv) 10 mg Q4 PRN IV sustained hr>130; Start 07/17/17 at 20:30 Enoxaparin Sodium 30 mg 30 mg DAILY SC Last administered on 07/20/17 08:57; Admin Dose 30 MG; Start 07/20/17 at 09:00 Sodium Bicarbonate/ Dextrose (Na Bicarb/D5W) 1,000 ml @ 80 mls/hr [id number] IV ; Start 07/20/17 at 10:30 MAGDALENO GUEVARA Jul 20, 2017 10:16
--- NOTE | 2017-07-20 10:25 | RADRPT ---
PROCEDURE: Renal US. CLINICAL INDICATION: Abnormal renal function TECHNIQUE: Multiple sonographic images of the kidneys were obtained. The images were reviewed on a PACS workstation. COMPARISON: No prior studies are available for comparison. FINDINGS: Both kidneys are increase in echogenicity. There is bilateral renal cortical thinning.. No solid re nal masses are identified. Mild right hydronephrosis is seen. No obstructing renal calculus is visua lized. Left collecting system is normal in caliber. There are 2 left renal cyst. Largest cyst measur es 2.3 cm. The right kidney measures 8.2 cm, and the left kidney measures 7.9 cm. Spot images of the pelvis demonstrating normally distended bladder with smooth contours. There is e xtensive debris/blood within the bladder. There is deformity along the posterior bladder wall second herb to prostate gland. IMPRESSION: 1. Mild right hydronephrosis. Obstructing renal calculus is not visualized. 2. Left collecting system is normal in caliber. 3. Atrophic bilateral kidneys with cortical thinning. 4. Increased cortical echogenicity suggest medical renal disease. 5. Left renal cyst. 6. Echogenic material layering within the bladder. This may represent debris or blood RPTAT: .Jimbo Myrick MD, Date Time Electronically viewed and signed by .Jimbo Myrick MD, MD on 07/20/2017 10:25 .W/
[2017-07-20] MEDS: SODIUM BICARBONATE (IV ADD) 100 MEQ in DEXTROSE 5% 900 ML IV SCH ×2 (12:41→23:00)
[2017-07-20] MEDS: ATORVASTATIN 20 MG TAB PO SCH (20:44)
[2017-07-20] MEDS: TAMSULOSIN (SR) 0.4 MG CAP PO SCH (20:44)
[2017-07-20 20:45] LABS: PROTEIN/CREAT RATIO 1.94 RATIO
[2017-07-21] VITALS (13 sets, daily range): BP systolic 93–129; BP diastolic 58–71; PULSE 83–139; RESP 18–20
[2017-07-21] MEDS: SODIUM BICARBONATE (IV ADD) 100 MEQ in DEXTROSE 5% 900 ML IV SCH ×2 (03:40→21:23)
[2017-07-21 08:24] LABS: BASOPHILS % 0.1 % (0.0-2.0); EOSINOPHILS # 0.2 10^3/ul (0.0-0.5); HEMATOCRIT 25.3 % (42.0-52.0); HEMOGLOBIN 8.2 g/dl (14.0-18.0); LYMPHOCYTES # 0.6 10^3/ul (0.8-2.9); LYMPHOCYTES % 6.2 % (15.0-51.0); MEAN CORPUSCULAR HEMOGLOBIN 30.6 pg (29.0-33.0); MEAN CORPUSCULAR HGB CONC 32.4 g/dl (32.0-37.0); MEAN CORPUSCULAR VOLUME 94.4 fl (82.0-101.0); MEAN PLATELET VOLUME 10.1 fl (7.4-10.4); MONOCYTE # 0.7 10^3/ul (0.3-0.9); MONOCYTES % 6.8 % (0.0-11.0); NEUTROPHIL # 8.6 10^3/ul (1.6-7.5); NEUTROPHILS % 84.2 % (39.0-77.0); PLATELET COUNT 308 10^3/UL (140-415); RED BLOOD COUNT 2.68 10^6/ul (4.70-6.10); RED CELL DISTRIBUTION WIDTH 15.4 % (11.5-14.5); WHITE BLOOD COUNT 10.3 10^3/ul (4.8-10.8)
[2017-07-21 08:41] LABS: MAGNESIUM 1.9 mg/dl (1.7-2.5); PHOSPHORUS 4.4 mg/dl (2.5-4.9)
[2017-07-21 08:43] LABS: ALBUMIN 2.5 g/dl (3.3-4.9); ALBUMIN/GLOBULIN RATIO 0.75; BILIRUBIN,INDIRECT 0.2 mg/dl (0-1.1); BILIRUBIN,TOTAL 0.2 mg/dl (0.2-1.3); CALCIUM 8.2 mg/dl (8.4-10.2); CREATININE 4.24 mg/dl (0.61-1.24); POTASSIUM 5.2 mmol/L (3.5-5.1); TOTAL PROTEIN 5.8 g/dl (6.1-8.1)
[2017-07-21] MEDS: MEMANTINE 10 MG TAB PO SCH ×2 (08:49→20:47)
[2017-07-21] MEDS: PANTOPRAZOLE (EC) 40 MG TAB PO SCH (08:49)
[2017-07-21] MEDS: METOPROLOL 25 MG TAB PO SCH ×2 (08:50→20:50)
[2017-07-21] MEDS: CARBIDOPA/LEVODOPA 25-100 (CR) TAB PO SCH ×4 (08:50→21:22)
[2017-07-21] MEDS: DOCUSATE SODIUM 100 MG CAP PO SCH ×2 (08:50→20:46)
[2017-07-21] MEDS: BUPROPION (SR) 150 MG TAB PO SCH (08:51)
[2017-07-21] MEDS: ENOXAPARIN 30 MG/0.3 ML SYG SC SCH (09:05)
[2017-07-21 09:12] LABS: AADO2 Arterial 39.3 mmHg (7.0-24.0); Allen Test ACCEPTAB; Arterial Base Excess -7.7 mmol/L (-3.0-3); Arterial COHb 0.1 % (0.0-3.0); Arterial Fraction of Oxyhgb 95.1 % (93.0-99.0); Arterial HCO3 15.8 mmol/L (22.0-26.0); Arterial MetHb 0.3 % (0.0-1.5); Arterial Total Hemglobin 9.2 g/dl (12.0-18.0); MODE ROOM AIR
[2017-07-21] MEDS ORDERED: ALBUMIN HUMAN 25% 100 ML IV ONE (10:38)
[2017-07-21] MEDS ORDERED: FUROSEMIDE 20 MG INJ IV ONE (11:00)
--- NOTE | 2017-07-21 11:02 | PN ---
Date/Time of Note Date/Time of Note DATE: 07/21/17 TIME: 10:48 Assessment/Plan VTE Prophylaxis VTE Prophylaxis Intervention: LMWH Lines/Catheters IV Catheter Type (from Nrsg): Saline Lock Central line still needed: No Urinary Cath still in place: Yes Reason Cath still needed: pres ulcer contaminated by urine Assessment/Plan Assessment/Plan 89-year-old male with: 1. Left hip fracture status post left hemiarthroplasty and IT femoral head. POD #4 Appreciate postop recommendations from Dr. Lilly, PT ordered. As the hip abductor in place, the patient is only doing upper extremity exercises in bed. Lovenox adjusted renally, will discuss with Dr. Lilly if okay to switch to Eliquis. Pain control is adequate. 2. Acute kidney injury on chronic kidney disease, CKD 4-5, creatinine increased further an outpatient with significant electrolyte abnormalities including hyperkalemia and ongoing metabolic acidosis. Continue D5 W with sodium bicarb as well as albumin and Lasix. Appreciate recommendations from Dr. Rivera Continue to monitor renal function and Roca catheter to be placed per nephrology. Off lisinopril in setting of advanced kidney disease. 3. Hypertension. Adequate control. Continue metoprolol. Hydralazine as needed. Cardizem added as needed sinus tachycardia 4. Parkinson's with dementia. Continue home meds. Patient does have some disorientation but mostly cooperative and [place] speaking only, off restraints however per speech therapy not safe to swallow this morning, patient n.p.o. except for medications. 5. BPH. Continue Flomax Prophylaxis: Lovenox for DVT prophylaxis , Protonix for GI prophylaxis Disposition: PT eval today, follow-up further recommendations from orthopedic surgery. Follow-up ABG and further nephrology recommendations based on workup today. Discharge planning to half-way facility when patient stable. According to case management they are securing a bed at [facility] and family is agreeable with that facility. Subjective 24 Hr Interval Summary Free Text/Dictation Feeling well, but appetite is still low. No other complaints. Creatinine is only slightly improved at this point. The patient's son was at the bedside and plan of care was updated with him. Exam/Review of Systems Vital Signs Vitals Vital Signs Date Time Temp Pulse Resp B/P Pulse Ox O2 Delivery O2 Flow Rate FiO2 07/21/17 08:05 90 07/21/17 07:53 98.3 18 126/64 96 07/20/17 20:00 Nasal Cannula 2.0 Intake and Output 07/20/17 07/20/17 07/21/17 15:00 23:00 07:00 Intake Total 30 ml 1000 ml Output Total 300 ml 500 ml Balance -270 ml 500 ml Exam Constitutional: alert, frail Psych: no complaints Head: normocephalic Eyes: nl conjunctiva ENMT: nl external ears & nose Neck: supple Respiratory: clear to auscultation Cardiovascular: regular rate and rhythm Gastrointestinal: soft Extremities: other (Hip abductor in place) Results Result Diagram: 07/21/17 0709 07/21/17 0709 Results 24 hrs Laboratory Tests Test 07/20/17 20:04 07/21/17 07:09 07/21/17 08:00 Urine Eosinophils % 0.0 Urine Random Creatinine 31.83 Urine Random Sodium 101 H Urine Protein/Creatinine Ratio 1.94 Urine Total Protein 62.0 H White Blood Count 10.3 # Red Blood Count 2.68 L Hemoglobin 8.2 L Hematocrit 25.3 L Mean Corpuscular Volume 94.4 Mean Corpuscular Hemoglobin 30.6 Mean Corpuscular Hemoglobin Concent 32.4 Red Cell Distribution Width 15.4 H Platelet Count 308 Mean Platelet Volume 10.1 Neutrophils % 84.2 H Lymphocytes % 6.2 L Monocytes % 6.8 Eosinophils % 2.0 Basophils % 0.1 Nucleated Red Blood Cells % 0.0 Neutrophils # 8.6 H Lymphocytes # 0.6 L Monocytes # 0.7 Eosinophils # 0.2 Basophils # 0.0 Nucleated Red Blood Cells # 0.0 Sodium Level 134 L Potassium Level 5.2 H Chloride Level 108 Carbon Dioxide Level 17 L Anion Gap 14 Blood Urea Nitrogen 49 H Creatinine 4.24 H Glucose Level 116 Calcium Level 8.2 L Phosphorus Level 4.4 Magnesium Level 1.9 Total Bilirubin 0.2 Direct Bilirubin 0.00 Indirect Bilirubin 0.2 Aspartate Amino Transf (AST/SGOT) 20 Alanine Aminotransferase (ALT/SGPT) 23 Alkaline Phosphatase 71 Total Protein 5.8 L Albumin 2.5 L Globulin 3.30 H Albumin/Globulin Ratio 0.75 Blood Gas Specimen Source Blood arterial Arterial Blood Date Drawn 07/21/2017 9:05:21 AM Arterial Blood pH (Temp corrected) 7.406 Arterial Blood pCO2 (Temp correct) 25.8 L Arterial Blood pO2 (Temp corrected) 79.5 L Arterial Blood HCO3 15.8 L Arterial Blood Base Excess -7.7 L Arterial Blood Oxygen Saturation 95.5 Shimon Test ACCEPTAB Arterial Blood Gas Puncture Site Right Radial Arterial Blood Carboxyhemoglobin 0.1 Arterial Blood Methemoglobin 0.3 Blood Gas A-a O2 Differential 39.3 H Oxyhemoglobin Percent 95.1 Total Hemoglobin 9.2 L Blood Gas Temperature 37.0 Blood Gas Modality ROOM AIR FiO2 21.0 Blood Gas Notified Whom DT Blood Gas Notified Time 07/21/2017 9:11:52 AM Medications Medications Current Medications Ondansetron HCl (Zofran Inj) 4 mg Q6H PRN IV NAUSEA AND/OR VOMITING; Start at 14:30 Acetaminophen (Tylenol Tab) 650 mg Q6H PRN PO PAIN LEVEL 1-3 OR FEVER Last administered on 07/17/17 22:22; Admin Dose 650 MG; Start 07/13/17 at 14:30 Acetaminophen/ Hydrocodone Bitart ([place] (5/325)) 1 tab Q6H PRN PO MODERATE PAIN LEVEL 4-6 Last administered on 07/16/17 21:22; Admin Dose 1 TAB; Start 07/13/17 at 14:30 Morphine Sulfate (morphine) 2 mg Q4H PRN IV SEVERE PAIN LEVEL 7-10 Last administered on 07/20/17 02:58; Admin Dose 2 MG; Start 07/13/17 at 14:30 Docusate Sodium (Colace) 100 mg Q12H PRN PO CONSTIPATION; Start 07/13/17 at 14 :30 Magnesium Hydroxide (Milk Of Mag) 30 ml DAILY PRN PO CONSTIPATION; Start 07/13 at 14:30 Hydralazine HCl (Apresoline) 10 mg Q4H PRN IV SBP>170; Start 07/13/17 at 14:30 Bupropion HCl (Wellbutrin Sr) 150 mg DAILY PO Last administered on 07/20/17 08 :40; Admin Dose 150 MG; Start 07/14/17 at 09:00 Carbidopa/Levodopa (Sinemet Cr (25/ 100)) 1 tab QID PO Last administered on 08:50; Admin Dose 1 TAB; Start 07/13/17 at 17:00 Docusate Sodium (Colace) 100 mg BID PO Last administered on 07/21/17 08:50; Admin Dose 100 MG; Start 07/13/17 at 21:00 Tamsulosin HCl (Flomax) 0.4 mg HS PO Last administered on 07/20/17 20:44; Admin Dose 0.4 MG; Start 07/13/17 at 21:00 Pantoprazole (Protonix Tab) 40 mg DAILY PO Last administered on 07/21/17 08:49 ; Admin Dose 40 MG; Start 07/14/17 at 09:00 Memantine (Namenda) 10 mg BID PO Last administered on 07/21/17 08:49; Admin Dose 10 MG; Start 07/13/17 at 21:00 Atorvastatin Calcium (Lipitor) 20 mg QHS PO Last administered on 07/20/17 20: 44; Admin Dose 20 MG; Start 07/13/17 at 21:00 Acetaminophen/ Hydrocodone Bitart ([place] (5/325)) 1 tab Q4H PRN PO PAIN LEVEL 1 -3; Start 07/17/17 at 12:30 Acetaminophen/ Hydrocodone Bitart ([place] (5/325)) 2 tab Q4H PRN PO PAIN LEVEL 4 -7; Start 07/17/17 at 12:30 Morphine Sulfate (morphine) 3 mg Q3H PRN IV PAIN; Start 07/17/17 at 12:30 Metoprolol Tartrate (Lopressor) 25 mg BID PO Last administered on 07/21/17 08: 50; Admin Dose 25 MG; Start 07/17/17 at 21:00 Diltiazem HCl (Cardizem Iv) 10 mg Q4 PRN IV sustained hr>130 Last administered on 07/21/17 03:48; Admin Dose 10 MG; Start 07/17/17 at 20:30 Enoxaparin Sodium 30 mg 30 mg DAILY SC Last administered on 07/21/17 09:05; Admin Dose 30 MG; Start 07/20/17 at 09:00 Sodium Bicarbonate 100 meq/Dextrose 1,000 ml @ 80 mls/hr [id number] IV Last administered on 07/21/17 03:40; Admin Dose 80 MLS/HR; Start 07/20/17 at 10:30 Albumin Human (Albumin Human 25%) 100 ml @ 100 mls/hr ONCE ONCE IV ; Start at 10:38; Stop 07/21/17 at 11:37 Furosemide (Lasix) 20 mg ONCE ONCE IV ; Start 07/21/17 at 11:00; Stop 07/21/17 at 11:01 CHARLES GOLDMAN MD Jul 21, 2017 10:58
--- NOTE | 2017-07-21 16:52 | CONS ---
Date/Time of Note Date/Time of Note DATE: 07/21/17 TIME: 16:50 Assessment/Plan Assessment/Plan Chief Complaint/Hosp Course 89 M with PMhx of CKD IV, Parkinson demential, HTN who admitted with left hip fracture, now underwent left hemiarthroplasty and IT femoral head. pt post op course notable for worsening renal failure and worsening metabolic acidosis. BP also high, renal has been consulted for TORIN on CKD worsening , acute hyperkalemia with K 6.0fluid overalod and metaboilc acidosis. Problems: Additional Assessment/Plan 1. Acute hyperkalemia K 6.0- Resolved 2. TORIN on CKD IV- worsening renal failure 3. severe metabolic acidosis 4. H/o CKD IV 5. s/p left hip hemiarthroplasty for left hip fracture 6. Hypertension 7. Parkinson dementia Plan : K 5.2- Conitnue HCo3 drip with D5W 100mEQ NAHCO3 at 80 cc/hr Expecting Renal functiont o slightly better with another day of HCo3 drip very poor candidate for renal replacement therapy if Cr dont improve due to his age, comorbidiites and bedridden status will follow up Consultation Date/Type/Reason Admit Date/Time Jul 13, 2017 at 12:45 Initial Consult Date 07/20/17 Type of Consultation: NEPHROLOGY Referring Provider: MAGDALENO GUEVARA 24 HR Interval Summary Free Text/Dictation pt K improving but still little hihg, BUN/Cr slightly better, BP stable, on HCo3 drip., pt is demented, non verbal, coughing with food as per nursing staff Exam/Review of Systems Vital Signs Vitals Vital Signs Date Time Temp Pulse Resp B/P Pulse Ox O2 Delivery O2 Flow Rate FiO2 07/21/17 16:05 83 07/21/17 15:52 97.9 18 115/71 94 07/20/17 20:00 Nasal Cannula 2.0 Intake and Output 07/20/17 07/20/17 07/21/17 15:00 23:00 07:00 Intake Total 30 ml 1000 ml Output Total 300 ml 500 ml Balance -270 ml 500 ml Exam Constitutional: non-verbal Respiratory: congested cough, crackles/rales, diminished breath sounds Cardiovascular: nl pulses, regular rate and rhythm Gastrointestinal: non-tender, soft Musculoskeletal: nl extremities to inspection Extremities: normal pulses Neurological: confused, lethargic, other (not following commands ) Results Result Diagram: 07/21/17 0709 07/21/17 0709 Results 24 hrs Laboratory Tests Test 07/20/17 20:04 07/21/17 07:09 07/21/17 08:00 Urine Eosinophils % 0.0 Urine Random Creatinine 31.83 Urine Random Sodium 101 H Urine Protein/Creatinine Ratio 1.94 Urine Total Protein 62.0 H White Blood Count 10.3 # Red Blood Count 2.68 L Hemoglobin 8.2 L Hematocrit 25.3 L Mean Corpuscular Volume 94.4 Mean Corpuscular Hemoglobin 30.6 Mean Corpuscular Hemoglobin Concent 32.4 Red Cell Distribution Width 15.4 H Platelet Count 308 Mean Platelet Volume 10.1 Neutrophils % 84.2 H Lymphocytes % 6.2 L Monocytes % 6.8 Eosinophils % 2.0 Basophils % 0.1 Nucleated Red Blood Cells % 0.0 Neutrophils # 8.6 H Lymphocytes # 0.6 L Monocytes # 0.7 Eosinophils # 0.2 Basophils # 0.0 Nucleated Red Blood Cells # 0.0 Sodium Level 134 L Potassium Level 5.2 H Chloride Level 108 Carbon Dioxide Level 17 L Anion Gap 14 Blood Urea Nitrogen 49 H Creatinine 4.24 H Glucose Level 116 Calcium Level 8.2 L Phosphorus Level 4.4 Magnesium Level 1.9 Total Bilirubin 0.2 Direct Bilirubin 0.00 Indirect Bilirubin 0.2 Aspartate Amino Transf (AST/SGOT) 20 Alanine Aminotransferase (ALT/SGPT) 23 Alkaline Phosphatase 71 Total Protein 5.8 L Albumin 2.5 L Globulin 3.30 H Albumin/Globulin Ratio 0.75 Blood Gas Specimen Source Blood arterial Arterial Blood Date Drawn 07/21/2017 9:05:21 AM Arterial Blood pH (Temp corrected) 7.406 Arterial Blood pCO2 (Temp correct) 25.8 L Arterial Blood pO2 (Temp corrected) 79.5 L Arterial Blood HCO3 15.8 L Arterial Blood Base Excess -7.7 L Arterial Blood Oxygen Saturation 95.5 Shimon Test ACCEPTAB Arterial Blood Gas Puncture Site Right Radial Arterial Blood Carboxyhemoglobin 0.1 Arterial Blood Methemoglobin 0.3 Blood Gas A-a O2 Differential 39.3 H Oxyhemoglobin Percent 95.1 Total Hemoglobin 9.2 L Blood Gas Temperature 37.0 Blood Gas Modality ROOM AIR FiO2 21.0 Blood Gas Notified Whom DT Blood Gas Notified Time 07/21/2017 9:11:52 AM Medications Medications Current Medications Ondansetron HCl (Zofran Inj) 4 mg Q6H PRN IV NAUSEA AND/OR VOMITING; Start at 14:30 Acetaminophen (Tylenol Tab) 650 mg Q6H PRN PO PAIN LEVEL 1-3 OR FEVER Last administered on 07/17/17 22:22; Admin Dose 650 MG; Start 07/13/17 at 14:30 Acetaminophen/ Hydrocodone Bitart ([place] (5/325)) 1 tab Q6H PRN PO MODERATE PAIN LEVEL 4-6 Last administered on 07/16/17 21:22; Admin Dose 1 TAB; Start 07/13/17 at 14:30 Morphine Sulfate (morphine) 2 mg Q4H PRN IV SEVERE PAIN LEVEL 7-10 Last administered on 07/20/17 02:58; Admin Dose 2 MG; Start 07/13/17 at 14:30 Docusate Sodium (Colace) 100 mg Q12H PRN PO CONSTIPATION; Start 07/13/17 at 14 :30 Magnesium Hydroxide (Milk Of Mag) 30 ml DAILY PRN PO CONSTIPATION; Start 07/13 at 14:30 Hydralazine HCl (Apresoline) 10 mg Q4H PRN IV SBP>170; Start 07/13/17 at 14:30 Bupropion HCl (Wellbutrin Sr) 150 mg DAILY PO Last administered on 07/20/17 08 :40; Admin Dose 150 MG; Start 07/14/17 at 09:00 Carbidopa/Levodopa (Sinemet Cr (25/ 100)) 1 tab QID PO Last administered on 13:15; Admin Dose 1 TAB; Start 07/13/17 at 17:00 Docusate Sodium (Colace) 100 mg BID PO Last administered on 07/21/17 08:50; Admin Dose 100 MG; Start 07/13/17 at 21:00 Tamsulosin HCl (Flomax) 0.4 mg HS PO Last administered on 07/20/17 20:44; Admin Dose 0.4 MG; Start 07/13/17 at 21:00 Pantoprazole (Protonix Tab) 40 mg DAILY PO Last administered on 07/21/17 08:49 ; Admin Dose 40 MG; Start 07/14/17 at 09:00 Memantine (Namenda) 10 mg BID PO Last administered on 07/21/17 08:49; Admin Dose 10 MG; Start 07/13/17 at 21:00 Atorvastatin Calcium (Lipitor) 20 mg QHS PO Last administered on 07/20/17 20: 44; Admin Dose 20 MG; Start 07/13/17 at 21:00 Acetaminophen/ Hydrocodone Bitart ([place] (5/325)) 1 tab Q4H PRN PO PAIN LEVEL 1 -3; Start 07/17/17 at 12:30 Acetaminophen/ Hydrocodone Bitart ([place] (5/325)) 2 tab Q4H PRN PO PAIN LEVEL 4 -7; Start 07/17/17 at 12:30 Morphine Sulfate (morphine) 3 mg Q3H PRN IV PAIN; Start 07/17/17 at 12:30 Metoprolol Tartrate (Lopressor) 25 mg BID PO Last administered on 07/21/17 08: 50; Admin Dose 25 MG; Start 07/17/17 at 21:00 Diltiazem HCl (Cardizem Iv) 10 mg Q4 PRN IV sustained hr>130 Last administered on 07/21/17 03:48; Admin Dose 10 MG; Start 07/17/17 at 20:30 Enoxaparin Sodium 30 mg 30 mg DAILY SC Last administered on 07/21/17 09:05; Admin Dose 30 MG; Start 07/20/17 at 09:00 Sodium Bicarbonate/ Dextrose (Na Bicarb/D5W) 1,000 ml @ 80 mls/hr [id number] IV Last administered on 07/21/17 03:40; Admin Dose 80 MLS/HR; Start 07/20/17 at 10 :30 ARMEN CABALLERO MD Jul 21, 2017 16:52
[2017-07-21] MEDS: TAMSULOSIN (SR) 0.4 MG CAP PO SCH (20:46)
[2017-07-21] MEDS: ATORVASTATIN 20 MG TAB PO SCH (20:46)
[2017-07-22] VITALS (9 sets, daily range): BP systolic 91–126; BP diastolic 57–78; PULSE 76–125; RESP 16–18
[2017-07-22 06:13] LABS: BASOPHILS % 0.1 % (0.0-2.0); EOSINOPHILS # 0.3 10^3/ul (0.0-0.5); EOSINOPHILS % 3.7 % (0.0-7.0); HEMATOCRIT 24.4 % (42.0-52.0); LYMPHOCYTES % 11.8 % (15.0-51.0); MEAN CORPUSCULAR HEMOGLOBIN 31.3 pg (29.0-33.0); MEAN CORPUSCULAR HGB CONC 32.8 g/dl (32.0-37.0); MEAN CORPUSCULAR VOLUME 95.3 fl (82.0-101.0); MEAN PLATELET VOLUME 9.9 fl (7.4-10.4); MONOCYTE # 0.8 10^3/ul (0.3-0.9); MONOCYTES % 9.6 % (0.0-11.0); NEUTROPHIL # 6.2 10^3/ul (1.6-7.5); NEUTROPHILS % 73.4 % (39.0-77.0); NUCLEATED RED BLOOD CELLS% 0.2 /100WBC (0.0-0.0); PLATELET COUNT 291 10^3/UL (140-415); RED BLOOD COUNT 2.56 10^6/ul (4.70-6.10); RED CELL DISTRIBUTION WIDTH 15.3 % (11.5-14.5); WHITE BLOOD COUNT 8.4 10^3/ul (4.8-10.8)
[2017-07-22 07:03] LABS: ALBUMIN 2.6 g/dl (3.3-4.9); CALCIUM 7.8 mg/dl (8.4-10.2); CREATININE 3.92 mg/dl (0.61-1.24); PHOSPHORUS 4.2 mg/dl (2.5-4.9); POTASSIUM 4.6 mmol/L (3.5-5.1)
[2017-07-22] MEDS: METOPROLOL 25 MG TAB PO SCH ×2 (09:00→20:58)
[2017-07-22] MEDS: ENOXAPARIN 30 MG/0.3 ML SYG SC SCH (09:30)
[2017-07-22] MEDS: PANTOPRAZOLE (EC) 40 MG TAB PO SCH (09:31)
[2017-07-22] MEDS: MEMANTINE 10 MG TAB PO SCH ×2 (09:31→20:57)
[2017-07-22] MEDS: BUPROPION (SR) 150 MG TAB PO SCH (09:31)
[2017-07-22] MEDS: DOCUSATE SODIUM 100 MG CAP PO SCH ×2 (09:31→20:58)
[2017-07-22] MEDS: CARBIDOPA/LEVODOPA 25-100 (CR) TAB PO SCH ×4 (09:32→20:58)
--- NOTE | 2017-07-22 12:22 | CONS ---
Date/Time of Note Date/Time of Note DATE: 07/22/17 TIME: 12:22 Assessment/Plan Assessment/Plan Chief Complaint/Hosp Course 89 M with PMhx of CKD IV, Parkinson demential, HTN who admitted with left hip fracture, now underwent left hemiarthroplasty and IT femoral head. pt post op course notable for worsening renal failure and worsening metabolic acidosis. BP also high, renal has been consulted for TORIN on CKD worsening , acute hyperkalemia with K 6.0fluid overalod and metaboilc acidosis. Problems: Additional Assessment/Plan 1. Acute hyperkalemia K 6.0- Resolved 2. TORIN on CKD IV- worsening renal failure- slightly imporved with bicarbonate drip 3. severe metabolic acidosis- s/p HCO3 drip for 2 days 4. H/o CKD IV 5. s/p left hip hemiarthroplasty for left hip fracture 6. Hypertension 7. Parkinson dementia Plan : BUN/Cr imrpovign, K normal,d/c bicarboante drip Made adequate urine with albumin + lasix yesterday will monitor renal function and electrolytes very poor candidate for renal replacement therapy if Cr dont improve due to his age, comorbidiites and bedridden status will follow up Consultation Date/Type/Reason Admit Date/Time Jul 13, 2017 at 12:45 Initial Consult Date 07/20/17 Type of Consultation: NEPHROLOGY Referring Provider: MAGDALENO GUEVARA Exam/Review of Systems Vital Signs Vitals Vital Signs Date Time Temp Pulse Resp B/P Pulse Ox O2 Delivery O2 Flow Rate FiO2 07/22/17 12:16 79 07/22/17 07:57 98.6 16 107/65 95 07/20/17 20:00 Nasal Cannula 2.0 Intake and Output 07/21/17 07/21/17 07/22/17 15:00 23:00 07:00 Intake Total 100 ml 1000 ml 0 ml Output Total 400 ml 850 ml Balance 100 ml 600 ml -850 ml Exam Constitutional: awake, alert, but not oriented Respiratory: congested cough, crackles/rales, diminished breath sounds Cardiovascular: nl pulses, regular rate and rhythm Gastrointestinal: non-tender, soft Musculoskeletal: nl extremities to inspection Extremities: normal pulses Neurological: demented Results Result Diagram: 07/22/17 0541 07/22/17 0541 Results 24 hrs Laboratory Tests Test 07/22/17 05:41 White Blood Count 8.4 Red Blood Count 2.56 L Hemoglobin 8.0 L Hematocrit 24.4 L Mean Corpuscular Volume 95.3 Mean Corpuscular Hemoglobin 31.3 Mean Corpuscular Hemoglobin Concent 32.8 Red Cell Distribution Width 15.3 H Platelet Count 291 Mean Platelet Volume 9.9 Neutrophils % 73.4 Lymphocytes % 11.8 L Monocytes % 9.6 Eosinophils % 3.7 Basophils % 0.1 Nucleated Red Blood Cells % 0.2 H Neutrophils # 6.2 Lymphocytes # 1.0 Monocytes # 0.8 Eosinophils # 0.3 Basophils # 0.0 Nucleated Red Blood Cells # 0.0 Sodium Level 137 Potassium Level 4.6 Chloride Level 105 Carbon Dioxide Level 23 Anion Gap 14 Blood Urea Nitrogen 48 H Creatinine 3.92 H Glucose Level 104 Calcium Level 7.8 L Phosphorus Level 4.2 Albumin 2.6 L Medications Medications Current Medications Ondansetron HCl (Zofran Inj) 4 mg Q6H PRN IV NAUSEA AND/OR VOMITING; Start at 14:30 Acetaminophen (Tylenol Tab) 650 mg Q6H PRN PO PAIN LEVEL 1-3 OR FEVER Last administered on 07/17/17 22:22; Admin Dose 650 MG; Start 07/13/17 at 14:30 Acetaminophen/ Hydrocodone Bitart ([place] (5/325)) 1 tab Q6H PRN PO MODERATE PAIN LEVEL 4-6 Last administered on 07/16/17 21:22; Admin Dose 1 TAB; Start 07/13/17 at 14:30 Morphine Sulfate (morphine) 2 mg Q4H PRN IV SEVERE PAIN LEVEL 7-10 Last administered on 07/20/17 02:58; Admin Dose 2 MG; Start 07/13/17 at 14:30 Docusate Sodium (Colace) 100 mg Q12H PRN PO CONSTIPATION; Start 07/13/17 at 14 :30 Magnesium Hydroxide (Milk Of Mag) 30 ml DAILY PRN PO CONSTIPATION; Start 07/13 at 14:30 Hydralazine HCl (Apresoline) 10 mg Q4H PRN IV SBP>170; Start 07/13/17 at 14:30 Bupropion HCl (Wellbutrin Sr) 150 mg DAILY PO Last administered on 07/22/17 09 :31; Admin Dose 150 MG; Start 07/14/17 at 09:00 Carbidopa/Levodopa (Sinemet Cr (25/ 100)) 1 tab QID PO Last administered on 09:32; Admin Dose 1 TAB; Start 07/13/17 at 17:00 Docusate Sodium (Colace) 100 mg BID PO Last administered on 07/22/17 09:31; Admin Dose 100 MG; Start 07/13/17 at 21:00 Tamsulosin HCl (Flomax) 0.4 mg HS PO Last administered on 07/21/17 20:46; Admin Dose 0.4 MG; Start 07/13/17 at 21:00 Pantoprazole (Protonix Tab) 40 mg DAILY PO Last administered on 07/22/17 09:31 ; Admin Dose 40 MG; Start 07/14/17 at 09:00 Memantine (Namenda) 10 mg BID PO Last administered on 07/22/17 09:31; Admin Dose 10 MG; Start 07/13/17 at 21:00 Atorvastatin Calcium (Lipitor) 20 mg QHS PO Last administered on 07/21/17 20: 46; Admin Dose 20 MG; Start 07/13/17 at 21:00 Acetaminophen/ Hydrocodone Bitart ([place] (5/325)) 1 tab Q4H PRN PO PAIN LEVEL 1 -3; Start 07/17/17 at 12:30 Acetaminophen/ Hydrocodone Bitart ([place] (5/325)) 2 tab Q4H PRN PO PAIN LEVEL 4 -7; Start 07/17/17 at 12:30 Morphine Sulfate (morphine) 3 mg Q3H PRN IV PAIN; Start 07/17/17 at 12:30 Metoprolol Tartrate (Lopressor) 25 mg BID PO Last administered on 07/21/17 20: 50; Admin Dose 25 MG; Start 07/17/17 at 21:00 Diltiazem HCl (Cardizem Iv) 10 mg Q4 PRN IV sustained hr>130 Last administered on 07/21/17 03:48; Admin Dose 10 MG; Start 07/17/17 at 20:30 Enoxaparin Sodium 30 mg 30 mg DAILY SC Last administered on 07/22/17 09:30; Admin Dose 30 MG; Start 07/20/17 at 09:00 Sodium Bicarbonate/ Dextrose (Na Bicarb/D5W) 1,000 ml @ 80 mls/hr [id number] IV Last administered on 07/21/17t 21:23; Admin Dose 80 MLS/HR; Start 07/20/17 at 10 :30 ARMEN CABALLERO MD Jul 22, 2017 12:22
--- NOTE | 2017-07-22 13:28 | PN ---
Date/Time of Note Date/Time of Note DATE: 07/22/17 TIME: 13:20 Assessment/Plan VTE Prophylaxis VTE Prophylaxis Intervention: LMWH Lines/Catheters IV Catheter Type (from Nrsg): Peripheral IV Central line still needed: No Urinary Cath still in place: Yes Reason Cath still needed: pres ulcer contaminated by urine Assessment/Plan Assessment/Plan 89-year-old male with: 1. Left hip fracture status post left hemiarthroplasty and IT femoral head. POD #5 Appreciate postop recommendations from Dr. Lilly. As the hip abductor in place, the patient is only doing upper extremity exercises in bed. Lovenox adjusted renally, will discuss with Dr. Lilly if okay to switch to Eliquis. Pain control is adequate. 2. Acute kidney injury on chronic kidney disease, CKD 4-5, creatinine starting to improve now. Continue D5 W with sodium bicarb as well as albumin and Lasix per Dr. Rivera. Will d/c soon and monitor renal function. Appreciate recommendations from Dr. Rivera Continue to monitor renal function and Roca catheter to be placed per nephrology. Off lisinopril in setting of advanced kidney disease. 3. Hypertension. Adequate control. Continue metoprolol. Hydralazine as needed. Cardizem added as needed sinus tachycardia 4. Parkinson's with dementia. Continue home meds. Patient does have some disorientation but mostly cooperative and Spanish speaking only, off restraints however per speech therapy not safe to swallow this morning, patient n.p.o. except for medications. 5. BPH. Continue Flomax Prophylaxis: Lovenox for DVT prophylaxis , Protonix for GI prophylaxis Discharge planning to long-term facility when patient stable. According to case management they are securing a bed at [facility] and family is agreeable with that facility. Hopefully, the renal function improves and the patient may go to SNF tomorrow. Subjective 24 Hr Interval Summary Free Text/Dictation Resting comfortably without any complaints. No significant issues overnight. Exam/Review of Systems Vital Signs Vitals Vital Signs Date Time Temp Pulse Resp B/P Pulse Ox O2 Delivery O2 Flow Rate FiO2 07/22/17 12:29 98.5 87 16 115/67 95 07/20/17 20:00 Nasal Cannula 2.0 Intake and Output 07/21/17 07/21/17 07/22/17 15:00 23:00 07:00 Intake Total 100 ml 1000 ml 0 ml Output Total 400 ml 850 ml Balance 100 ml 600 ml -850 ml Exam Constitutional: alert, oriented Psych: no complaints Head: normocephalic Eyes: nl conjunctiva ENMT: nl external ears & nose Neck: supple Respiratory: clear to auscultation Cardiovascular: regular rate and rhythm Gastrointestinal: soft Extremities: normal pulses Results Result Diagram: 07/22/17 0541 07/22/17 0541 Results 24 hrs Laboratory Tests Test 07/22/17 05:41 White Blood Count 8.4 Red Blood Count 2.56 L Hemoglobin 8.0 L Hematocrit 24.4 L Mean Corpuscular Volume 95.3 Mean Corpuscular Hemoglobin 31.3 Mean Corpuscular Hemoglobin Concent 32.8 Red Cell Distribution Width 15.3 H Platelet Count 291 Mean Platelet Volume 9.9 Neutrophils % 73.4 Lymphocytes % 11.8 L Monocytes % 9.6 Eosinophils % 3.7 Basophils % 0.1 Nucleated Red Blood Cells % 0.2 H Neutrophils # 6.2 Lymphocytes # 1.0 Monocytes # 0.8 Eosinophils # 0.3 Basophils # 0.0 Nucleated Red Blood Cells # 0.0 Sodium Level 137 Potassium Level 4.6 Chloride Level 105 Carbon Dioxide Level 23 Anion Gap 14 Blood Urea Nitrogen 48 H Creatinine 3.92 H Glucose Level 104 Calcium Level 7.8 L Phosphorus Level 4.2 Albumin 2.6 L Medications Medications Current Medications Ondansetron HCl (Zofran Inj) 4 mg Q6H PRN IV NAUSEA AND/OR VOMITING; Start at 14:30 Acetaminophen (Tylenol Tab) 650 mg Q6H PRN PO PAIN LEVEL 1-3 OR FEVER Last administered on 07/17/17 22:22; Admin Dose 650 MG; Start 07/13/17 at 14:30 Acetaminophen/ Hydrocodone Bitart ([place] (5/325)) 1 tab Q6H PRN PO MODERATE PAIN LEVEL 4-6 Last administered on 07/16/17 21:22; Admin Dose 1 TAB; Start 07/13/17 at 14:30 Morphine Sulfate (morphine) 2 mg Q4H PRN IV SEVERE PAIN LEVEL 7-10 Last administered on 07/20/17 02:58; Admin Dose 2 MG; Start 07/13/17 at 14:30 Docusate Sodium (Colace) 100 mg Q12H PRN PO CONSTIPATION; Start 07/13/17 at 14 :30 Magnesium Hydroxide (Milk Of Mag) 30 ml DAILY PRN PO CONSTIPATION; Start 07/13 at 14:30 Hydralazine HCl (Apresoline) 10 mg Q4H PRN IV SBP>170; Start 07/13/17 at 14:30 Bupropion HCl (Wellbutrin Sr) 150 mg DAILY PO Last administered on 07/22/17 09 :31; Admin Dose 150 MG; Start 07/14/17 at 09:00 Carbidopa/Levodopa (Sinemet Cr (25/ )) 1 tab QID PO Last administered on 09:32; Admin Dose 1 TAB; Start 07/13/17 at 17:00 Docusate Sodium (Colace) 100 mg BID PO Last administered on 07/22/17 09:31; Admin Dose 100 MG; Start 07/13/17 at 21:00 Tamsulosin HCl (Flomax) 0.4 mg HS PO Last administered on 07/21/17 20:46; Admin Dose 0.4 MG; Start 07/13/17 at 21:00 Pantoprazole (Protonix Tab) 40 mg DAILY PO Last administered on 07/22/17 09:31 ; Admin Dose 40 MG; Start 07/14/17 at 09:00 Memantine (Namenda) 10 mg BID PO Last administered on 07/22/17 09:31; Admin Dose 10 MG; Start 07/13/17 at 21:00 Atorvastatin Calcium (Lipitor) 20 mg QHS PO Last administered on 07/21/17 20: 46; Admin Dose 20 MG; Start 07/13/17 at 21:00 Acetaminophen/ Hydrocodone Bitart ([place] (5/325)) 1 tab Q4H PRN PO PAIN LEVEL 1 -3; Start 07/17/17 at 12:30 Acetaminophen/ Hydrocodone Bitart ([place] (5/325)) 2 tab Q4H PRN PO PAIN LEVEL 4 -7; Start 07/17/17 at 12:30 Morphine Sulfate (morphine) 3 mg Q3H PRN IV PAIN; Start 07/17/17 at 12:30 Metoprolol Tartrate (Lopressor) 25 mg BID PO Last administered on 07/21/17 20: 50; Admin Dose 25 MG; Start 07/17/17 at 21:00 Diltiazem HCl (Cardizem Iv) 10 mg Q4 PRN IV sustained hr>130 Last administered on 07/21/17 03:48; Admin Dose 10 MG; Start 07/17/17 at 20:30 Enoxaparin Sodium (Lovenox) 30 mg DAILY SC Last administered on 07/22/17 09:30 ; Admin Dose 30 MG; Start 07/20/17 at 09:00 CHARLES GOLDMAN MD Jul 22, 2017 13:28
[2017-07-22] MEDS: ATORVASTATIN 20 MG TAB PO SCH (20:58)
[2017-07-22] MEDS: TAMSULOSIN (SR) 0.4 MG CAP PO SCH (20:58)
[2017-07-22] MEDS ORDERED: DEXTROSE 5%-0.45% NACL 1,000 ML IV SCH (22:30)
[2017-07-23] VITALS (12 sets, daily range): BP systolic 113–166; BP diastolic 70–82; PULSE 66–130; RESP 17–20
[2017-07-23 06:06] LABS: BASOPHILS % 0.1 % (0.0-2.0); EOSINOPHILS # 0.1 10^3/ul (0.0-0.5); EOSINOPHILS % 1.3 % (0.0-7.0); HEMATOCRIT 24.8 % (42.0-52.0); LYMPHOCYTES # 0.9 10^3/ul (0.8-2.9); LYMPHOCYTES % 10.9 % (15.0-51.0); MEAN CORPUSCULAR HEMOGLOBIN 30.7 pg (29.0-33.0); MEAN CORPUSCULAR HGB CONC 32.3 g/dl (32.0-37.0); MEAN PLATELET VOLUME 9.8 fl (7.4-10.4); MONOCYTE # 0.9 10^3/ul (0.3-0.9); MONOCYTES % 11.6 % (0.0-11.0); NEUTROPHIL # 5.9 10^3/ul (1.6-7.5); NEUTROPHILS % 74.8 % (39.0-77.0); PLATELET COUNT 303 10^3/UL (140-415); RED BLOOD COUNT 2.61 10^6/ul (4.70-6.10); WHITE BLOOD COUNT 7.8 10^3/ul (4.8-10.8)
[2017-07-23 06:52] LABS: ALBUMIN 2.7 g/dl (3.3-4.9); CALCIUM 7.7 mg/dl (8.4-10.2); CREATININE 3.51 mg/dl (0.61-1.24); PHOSPHORUS 4.2 mg/dl (2.5-4.9)
[2017-07-23] MEDS: BUPROPION (SR) 150 MG TAB PO SCH (08:12)
[2017-07-23] MEDS: CARBIDOPA/LEVODOPA 25-100 (CR) TAB PO SCH ×4 (08:13→20:28)
[2017-07-23] MEDS: DOCUSATE SODIUM 100 MG CAP PO SCH ×2 (08:13→20:28)
[2017-07-23] MEDS: PANTOPRAZOLE (EC) 40 MG TAB PO SCH (08:13)
[2017-07-23] MEDS: METOPROLOL 25 MG TAB PO SCH ×2 (08:14→20:28)
[2017-07-23] MEDS: MEMANTINE 10 MG TAB PO SCH ×2 (08:14→20:28)
[2017-07-23] MEDS: ENOXAPARIN 30 MG/0.3 ML SYG SC SCH (08:14)
--- NOTE | 2017-07-23 12:31 | CONS ---
Date/Time of Note Date/Time of Note DATE: 07/23/17 TIME: 12:28 Assessment/Plan Assessment/Plan Additional Assessment/Plan Status post hip surgery 07/17/2017 Paroxysmal tachycardia Preserved ejection fraction Acute on chronic kidney disease Acute blood loss anemia status post blood transfusion -Continue beta-bernice as blood pressure and heart rate permits. Given recurrent anemia requiring blood transfusion, would hold off on aspirin therapy. Consultation Date/Type/Reason Admit Date/Time Jul 13, 2017 at 12:45 Type of Consultation: cv Referring Provider: MAGDALENO GUEVARA 24 HR Interval Summary Free Text/Dictation Patient seen and examined Exam/Review of Systems Vital Signs Vitals Vital Signs Date Time Temp Pulse Resp B/P Pulse Ox O2 Delivery O2 Flow Rate FiO2 07/23/17 12:12 81 07/23/17 11:11 98.4 20 136/77 95 07/20/17 20:00 Nasal Cannula 2.0 Intake and Output 07/22/17 07/22/17 07/23/17 15:00 23:00 07:00 Intake Total 320 ml 0 ml Output Total 950 ml 700 ml Balance -630 ml -700 ml Exam Awake, undergoing physical therapy, no apparent distress Head: normocephalic Respiratory: other (Coarse breath sounds bilaterally, no wheezing) Cardiovascular: other (S1-S2 heard), regular rate and rhythm Gastrointestinal: bowel sounds, non-tender, soft Extremities: edema Results Result Diagram: 07/23/17 0519 07/23/17 0519 Results 24 hrs Laboratory Tests Test 07/23/17 05:19 White Blood Count 7.8 Red Blood Count 2.61 L Hemoglobin 8.0 L Hematocrit 24.8 L Mean Corpuscular Volume 95.0 Mean Corpuscular Hemoglobin 30.7 Mean Corpuscular Hemoglobin Concent 32.3 Red Cell Distribution Width 15.0 H Platelet Count 303 Mean Platelet Volume 9.8 Neutrophils % 74.8 Lymphocytes % 10.9 L Monocytes % 11.6 H Eosinophils % 1.3 Basophils % 0.1 Nucleated Red Blood Cells % 0.0 Neutrophils # 5.9 Lymphocytes # 0.9 Monocytes # 0.9 Eosinophils # 0.1 Basophils # 0.0 Nucleated Red Blood Cells # 0.0 Sodium Level 137 Potassium Level 4.0 Chloride Level 103 Carbon Dioxide Level 26 Anion Gap 12 Blood Urea Nitrogen 47 H Creatinine 3.51 H Glucose Level 101 Calcium Level 7.7 L Phosphorus Level 4.2 Albumin 2.7 L Medications Medications Current Medications Ondansetron HCl (Zofran Inj) 4 mg Q6H PRN IV NAUSEA AND/OR VOMITING; Start at 14:30 Acetaminophen (Tylenol Tab) 650 mg Q6H PRN PO PAIN LEVEL 1-3 OR FEVER Last administered on 07/17/17 22:22; Admin Dose 650 MG; Start 07/13/17 at 14:30 Acetaminophen/ Hydrocodone Bitart ([place] (5/325)) 1 tab Q6H PRN PO MODERATE PAIN LEVEL 4-6 Last administered on 07/16/17 21:22; Admin Dose 1 TAB; Start 07/13/17 at 14:30 Morphine Sulfate (morphine) 2 mg Q4H PRN IV SEVERE PAIN LEVEL 7-10 Last administered on 07/20/17 02:58; Admin Dose 2 MG; Start 07/13/17 at 14:30 Docusate Sodium (Colace) 100 mg Q12H PRN PO CONSTIPATION; Start 07/13/17 at 14 :30 Magnesium Hydroxide (Milk Of Mag) 30 ml DAILY PRN PO CONSTIPATION; Start 07/13 at 14:30 Hydralazine HCl (Apresoline) 10 mg Q4H PRN IV SBP>170; Start 07/13/17 at 14:30 Bupropion HCl (Wellbutrin Sr) 150 mg DAILY PO Last administered on 07/23/17 08 :12; Admin Dose 150 MG; Start 07/14/17 at 09:00 Carbidopa/Levodopa (Sinemet Cr (25/ 100)) 1 tab QID PO Last administered on 12:12; Admin Dose 1 TAB; Start 07/13/17 at 17:00 Docusate Sodium (Colace) 100 mg BID PO Last administered on 07/23/17 08:13; Admin Dose 100 MG; Start 07/13/17 at 21:00 Tamsulosin HCl (Flomax) 0.4 mg HS PO Last administered on 07/22/17 20:58; Admin Dose 0.4 MG; Start 07/13/17 at 21:00 Pantoprazole (Protonix Tab) 40 mg DAILY PO Last administered on 07/23/17 08:13 ; Admin Dose 40 MG; Start 07/14/17 at 09:00 Memantine (Namenda) 10 mg BID PO Last administered on 07/23/17 08:14; Admin Dose 10 MG; Start 07/13/17 at 21:00 Atorvastatin Calcium (Lipitor) 20 mg QHS PO Last administered on 07/22/17 20: 58; Admin Dose 20 MG; Start 07/13/17 at 21:00 Acetaminophen/ Hydrocodone Bitart ([place] (5/325)) 1 tab Q4H PRN PO PAIN LEVEL 1 -3; Start 07/17/17 at 12:30 Acetaminophen/ Hydrocodone Bitart ([place] (5/325)) 2 tab Q4H PRN PO PAIN LEVEL 4 -7; Start 07/17/17 at 12:30 Morphine Sulfate (morphine) 3 mg Q3H PRN IV PAIN; Start 07/17/17 at 12:30 Metoprolol Tartrate (Lopressor) 25 mg BID PO Last administered on 07/23/17 08: 14; Admin Dose 25 MG; Start 07/17/17 at 21:00 Diltiazem HCl (Cardizem Iv) 10 mg Q4 PRN IV sustained hr>130 Last administered on 07/21/17 03:48; Admin Dose 10 MG; Start 07/17/17 at 20:30 Enoxaparin Sodium 30 mg 30 mg DAILY SC Last administered on 07/23/17 08:14; Admin Dose 30 MG; Start 07/20/17 at 09:00 Dextrose/Sodium Chloride (D5-1/2ns) 1,000 ml @ 50 mls/hr Q20H IV Last administered on 07/22/17 22:34; Admin Dose 50 MLS/HR; Start 07/22/17 at 22:30; Stop 07/23/17 at 18:29 Dennis Schrader DO Jul 23, 2017 12:31
--- NOTE | 2017-07-23 13:09 | PN ---
Date/Time of Note Date/Time of Note DATE: 07/23/17 TIME: 12:57 Assessment/Plan VTE Prophylaxis VTE Prophylaxis Intervention: LMWH Lines/Catheters IV Catheter Type (from Nrsg): Peripheral IV Urinary Cath still in place: Yes Reason Cath still needed: other (indicate) (Acute on chronic kidney disease) Assessment/Plan Assessment/Plan 89-year-old male with: 1. Left hip fracture status post left hemiarthroplasty and IT femoral head. POD #6 Appreciate postop recommendations from Dr. Lilly last week, continue PT. Switching to eliquis renal dosing, 2.5 mg po daily, discussed with Nephrology Appreciate cardiology assistance. Pain control 2. Acute kidney injury on chronic kidney disease, CKD 4-5, creatinine improving , down to 3.5 today. Metabolic acidosis resolved, electrolyte abnormality resolved. Patient on D5 1/ 2 NS. Appreciate recommendations from nephrology, Dr. Rivera. Continue to monitor renal function and Roca catheter in place. Off lisinopril in setting of advanced kidney disease. 3. Hypertension. Continue metoprolol. Hydralazine as needed. Cardizem added as needed sinus tachycardia 4. Parkinson's with dementia. Continue home meds. Since last week Patient does have some disorientation but mostly cooperative and [place] Islander speaking only , off restraints since last week and per speech therapy will start trial of pur ed diet. 5. BPH. Continue Flomax 6. Chronic anemia, acute component postoperatively. Likely secondary to chronic kidney disease. Hemoglobin has been 8.0 or above, over the past few days. No acute bleeding observed. Prophylaxis: Lovenox for DVT prophylaxis , Protonix for GI prophylaxis Disposition: PT eval today, follow-up further recommendations from nephrology. Discharge planning to retirement facility when patient stable. Hopefully in the next 24-48 hours, hopefully we will still be able to secure a bed at [facility] since family was already agreeable with that facility. Also apparently need to readdress CODE STATUS with family. Will do so when they are available. Subjective 24 Hr Interval Summary Free Text/Dictation Patient awake and alert, more active, oriented 1 at most, known dementia advanced, Parkinson disease. He is dysphasia is related to the Parkinson's disease and also dementia, he only takes food from family members and currently on pure diet. Renal function improving, when okay from nephrology standpoint will proceed was transferred to a retirement facility. Exam/Review of Systems Vital Signs Vitals Vital Signs Date Time Temp Pulse Resp B/P Pulse Ox O2 Delivery O2 Flow Rate FiO2 07/23/17 12:12 81 07/23/17 11:11 98.4 20 136/77 95 07/20/17 20:00 Nasal Cannula 2.0 Intake and Output 07/22/17 07/22/17 07/23/17 15:00 23:00 07:00 Intake Total 320 ml 0 ml Output Total 950 ml 700 ml Balance -630 ml -700 ml Exam Constitutional: alert, oriented (x1 at most), other ([place]er speaking not verbal) Respiratory: clear to auscultation, normal air movement Cardiovascular: nl pulses, regular rate and rhythm Gastrointestinal: non-tender, soft Musculoskeletal: other (Status post left hip ORIF) Extremities: normal pulses, other (No edema, clubbing or cyanosis) Neurological: [employer] II-XII intact, confused, other (Mostly bedbound) Results Result Diagram: 07/23/17 0519 07/23/17 0519 Results 24 hrs Laboratory Tests Test 07/23/17 05:19 White Blood Count 7.8 Red Blood Count 2.61 L Hemoglobin 8.0 L Hematocrit 24.8 L Mean Corpuscular Volume 95.0 Mean Corpuscular Hemoglobin 30.7 Mean Corpuscular Hemoglobin Concent 32.3 Red Cell Distribution Width 15.0 H Platelet Count 303 Mean Platelet Volume 9.8 Neutrophils % 74.8 Lymphocytes % 10.9 L Monocytes % 11.6 H Eosinophils % 1.3 Basophils % 0.1 Nucleated Red Blood Cells % 0.0 Neutrophils # 5.9 Lymphocytes # 0.9 Monocytes # 0.9 Eosinophils # 0.1 Basophils # 0.0 Nucleated Red Blood Cells # 0.0 Sodium Level 137 Potassium Level 4.0 Chloride Level 103 Carbon Dioxide Level 26 Anion Gap 12 Blood Urea Nitrogen 47 H Creatinine 3.51 H Glucose Level 101 Calcium Level 7.7 L Phosphorus Level 4.2 Albumin 2.7 L Imaging Free Text/Dictation PROCEDURE: Renal US. CLINICAL INDICATION: Abnormal renal function TECHNIQUE: Multiple sonographic images of the kidneys were obtained. The images were reviewed on a PACS workstation. COMPARISON: No prior studies are available for comparison. FINDINGS: Both kidneys are increase in echogenicity. There is bilateral renal cortical thinning.. No solid renal masses are identified. Mild right hydronephrosis is seen. No obstructing renal calculus is visualized. Left collecting system is normal in caliber. There are 2 left renal cyst. Largest cyst measures 2.3 cm. The right kidney measures 8.2 cm, and the left kidney measures 7.9 cm. Spot images of the pelvis demonstrating normally distended bladder with smooth contours. There is extensive debris/blood within the bladder. There is deformity along the posterior bladder wall secondary to prostate gland. IMPRESSION: 1. Mild right hydronephrosis. Obstructing renal calculus is not visualized. 2. Left collecting system is normal in caliber. 3. Atrophic bilateral kidneys with cortical thinning. 4. Increased cortical echogenicity suggest medical renal disease. 5. Left renal cyst. 6. Echogenic material layering within the bladder. This may represent debris or blood Medications Medications Current Medications Ondansetron HCl (Zofran Inj) 4 mg Q6H PRN IV NAUSEA AND/OR VOMITING; Start at 14:30 Acetaminophen (Tylenol Tab) 650 mg Q6H PRN PO PAIN LEVEL 1-3 OR FEVER Last administered on 07/17/17 22:22; Admin Dose 650 MG; Start 07/13/17 at 14:30 Acetaminophen/ Hydrocodone Bitart ([place] (5/325)) 1 tab Q6H PRN PO MODERATE PAIN LEVEL 4-6 Last administered on 07/16/17 21:22; Admin Dose 1 TAB; Start 07/13/17 at 14:30 Morphine Sulfate (morphine) 2 mg Q4H PRN IV SEVERE PAIN LEVEL 7-10 Last administered on 07/20/17 02:58; Admin Dose 2 MG; Start 07/13/17 at 14:30 Docusate Sodium (Colace) 100 mg Q12H PRN PO CONSTIPATION; Start 07/13/17 at 14 :30 Magnesium Hydroxide (Milk Of Mag) 30 ml DAILY PRN PO CONSTIPATION; Start 07/13 at 14:30 Hydralazine HCl (Apresoline) 10 mg Q4H PRN IV SBP>170; Start 07/13/17 at 14:30 Bupropion HCl (Wellbutrin Sr) 150 mg DAILY PO Last administered on 07/23/17 08 :12; Admin Dose 150 MG; Start 07/14/17 at 09:00 Carbidopa/Levodopa (Sinemet Cr (25/ 100)) 1 tab QID PO Last administered on 12:12; Admin Dose 1 TAB; Start 07/13/17 at 17:00 Docusate Sodium (Colace) 100 mg BID PO Last administered on 07/23/17 08:13; Admin Dose 100 MG; Start 07/13/17 at 21:00 Tamsulosin HCl (Flomax) 0.4 mg HS PO Last administered on 07/22/17 20:58; Admin Dose 0.4 MG; Start 07/13/17 at 21:00 Pantoprazole (Protonix Tab) 40 mg DAILY PO Last administered on 07/23/17 08:13 ; Admin Dose 40 MG; Start 07/14/17 at 09:00 Memantine (Namenda) 10 mg BID PO Last administered on 07/23/17 08:14; Admin Dose 10 MG; Start 07/13/17 at 21:00 Atorvastatin Calcium (Lipitor) 20 mg QHS PO Last administered on 07/22/17 20: 58; Admin Dose 20 MG; Start 07/13/17 at 21:00 Acetaminophen/ Hydrocodone Bitart ([place] (5/325)) 1 tab Q4H PRN PO PAIN LEVEL 1 -3; Start 07/17/17 at 12:30 Acetaminophen/ Hydrocodone Bitart ([place] (5/325)) 2 tab Q4H PRN PO PAIN LEVEL 4 -7; Start 07/17/17 at 12:30 Morphine Sulfate (morphine) 3 mg Q3H PRN IV PAIN; Start 07/17/17 at 12:30 Metoprolol Tartrate (Lopressor) 25 mg BID PO Last administered on 07/23/17 08: 14; Admin Dose 25 MG; Start 07/17/17 at 21:00 Diltiazem HCl (Cardizem Iv) 10 mg Q4 PRN IV sustained hr>130 Last administered on 07/21/17 03:48; Admin Dose 10 MG; Start 07/17/17 at 20:30 Enoxaparin Sodium 30 mg 30 mg DAILY SC Last administered on 07/23/17 08:14; Admin Dose 30 MG; Start 07/20/17 at 09:00 Dextrose/Sodium Chloride (D5-1/2ns) 1,000 ml @ 50 mls/hr Q20H IV Last administered on 07/22/17t 22:34; Admin Dose 50 MLS/HR; Start 07/22/17 at 22:30; Stop 07/23/17 at 18:29 MAGDALENO GUEVARA Jul 23, 2017 13:08
--- NOTE | 2017-07-23 13:11 | CONS ---
Date/Time of Note Date/Time of Note DATE: 07/23/17 TIME: 13:04 Assessment/Plan Assessment/Plan Chief Complaint/Hosp Course 89 M with PMhx of CKD IV, Parkinson demential, HTN who admitted with left hip fracture, now underwent left hemiarthroplasty and IT femoral head. pt post op course notable for worsening renal failure and worsening metabolic acidosis. BP also high, renal has been consulted for TORIN on CKD worsening , acute hyperkalemia with K 6.0fluid overalod and metaboilc acidosis. Problems: Additional Assessment/Plan 1. Acute hyperkalemia K 6.0- Resolved 2. TORIN on CKD IV- worsening renal failure- slightly imporved with bicarbonate drip 3. severe metabolic acidosis- s/p HCO3 drip for 2 days 4. H/o CKD IV 5. s/p left hip hemiarthroplasty for left hip fracture 6. Hypertension 7. Parkinson dementia Plan : BUN/Cr imrpovign, K normal, off Bicarbonate drip now pt pulled out his olmos catheter, no need for olmos now, ok to have condom catheter will monitor renal function and electrolytes very poor candidate for renal replacement therapy if Cr dont improve due to his age, comorbidiites and bedridden status will follow up Consultation Date/Type/Reason Admit Date/Time Jul 13, 2017 at 12:45 Initial Consult Date 07/20/17 Type of Consultation: NEPHROLOGY Referring Provider: MAGDALENO GUEVARA 24 HR Interval Summary Free Text/Dictation BUN/Cr slightly better, pt pulled out his olmos catheter, Bp stable, off HCO3 drip Exam/Review of Systems Vital Signs Vitals Vital Signs Date Time Temp Pulse Resp B/P Pulse Ox O2 Delivery O2 Flow Rate FiO2 07/23/17 12:12 81 07/23/17 11:11 98.4 20 136/77 95 07/20/17 20:00 Nasal Cannula 2.0 Intake and Output 07/22/17 07/22/17 07/23/17 15:00 23:00 07:00 Intake Total 320 ml 0 ml Output Total 950 ml 700 ml Balance -630 ml -700 ml Exam Constitutional: awake, alert, but not oriented Respiratory: congested cough, crackles/rales, diminished breath sounds Cardiovascular: nl pulses, regular rate and rhythm Gastrointestinal: non-tender, soft Musculoskeletal: nl extremities to inspection Extremities: normal pulses Neurological: demented Results Result Diagram: 07/23/17 0519 07/23/17 0519 Results 24 hrs Laboratory Tests Test 07/23/17 05:19 White Blood Count 7.8 Red Blood Count 2.61 L Hemoglobin 8.0 L Hematocrit 24.8 L Mean Corpuscular Volume 95.0 Mean Corpuscular Hemoglobin 30.7 Mean Corpuscular Hemoglobin Concent 32.3 Red Cell Distribution Width 15.0 H Platelet Count 303 Mean Platelet Volume 9.8 Neutrophils % 74.8 Lymphocytes % 10.9 L Monocytes % 11.6 H Eosinophils % 1.3 Basophils % 0.1 Nucleated Red Blood Cells % 0.0 Neutrophils # 5.9 Lymphocytes # 0.9 Monocytes # 0.9 Eosinophils # 0.1 Basophils # 0.0 Nucleated Red Blood Cells # 0.0 Sodium Level 137 Potassium Level 4.0 Chloride Level 103 Carbon Dioxide Level 26 Anion Gap 12 Blood Urea Nitrogen 47 H Creatinine 3.51 H Glucose Level 101 Calcium Level 7.7 L Phosphorus Level 4.2 Albumin 2.7 L Medications Medications Current Medications Ondansetron HCl (Zofran Inj) 4 mg Q6H PRN IV NAUSEA AND/OR VOMITING; Start at 14:30 Acetaminophen (Tylenol Tab) 650 mg Q6H PRN PO PAIN LEVEL 1-3 OR FEVER Last administered on 07/17/17 22:22; Admin Dose 650 MG; Start 07/13/17 at 14:30 Acetaminophen/ Hydrocodone Bitart ([place] (5/325)) 1 tab Q6H PRN PO MODERATE PAIN LEVEL 4-6 Last administered on 07/16/17 21:22; Admin Dose 1 TAB; Start 07/13/17 at 14:30 Morphine Sulfate (morphine) 2 mg Q4H PRN IV SEVERE PAIN LEVEL 7-10 Last administered on 07/20/17 02:58; Admin Dose 2 MG; Start 07/13/17 at 14:30 Docusate Sodium (Colace) 100 mg Q12H PRN PO CONSTIPATION; Start 07/13/17 at 14 :30 Magnesium Hydroxide (Milk Of Mag) 30 ml DAILY PRN PO CONSTIPATION; Start 07/13 at 14:30 Hydralazine HCl (Apresoline) 10 mg Q4H PRN IV SBP>170; Start 07/13/17 at 14:30 Bupropion HCl (Wellbutrin Sr) 150 mg DAILY PO Last administered on 07/23/17 08 :12; Admin Dose 150 MG; Start 07/14/17 at 09:00 Carbidopa/Levodopa (Sinemet Cr (25/ 100)) 1 tab QID PO Last administered on 12:12; Admin Dose 1 TAB; Start 07/13/17 at 17:00 Docusate Sodium (Colace) 100 mg BID PO Last administered on 07/23/17 08:13; Admin Dose 100 MG; Start 07/13/17 at 21:00 Tamsulosin HCl (Flomax) 0.4 mg HS PO Last administered on 07/22/17 20:58; Admin Dose 0.4 MG; Start 07/13/17 at 21:00 Pantoprazole (Protonix Tab) 40 mg DAILY PO Last administered on 07/23/17 08:13 ; Admin Dose 40 MG; Start 07/14/17 at 09:00 Memantine (Namenda) 10 mg BID PO Last administered on 07/23/17 08:14; Admin Dose 10 MG; Start 07/13/17 at 21:00 Atorvastatin Calcium (Lipitor) 20 mg QHS PO Last administered on 07/22/17 20: 58; Admin Dose 20 MG; Start 07/13/17 at 21:00 Acetaminophen/ Hydrocodone Bitart ([place] (5/325)) 1 tab Q4H PRN PO PAIN LEVEL 1 -3; Start 07/17/17 at 12:30 Acetaminophen/ Hydrocodone Bitart ([place] (5/325)) 2 tab Q4H PRN PO PAIN LEVEL 4 -7; Start 07/17/17 at 12:30 Morphine Sulfate (morphine) 3 mg Q3H PRN IV PAIN; Start 07/17/17 at 12:30 Metoprolol Tartrate (Lopressor) 25 mg BID PO Last administered on 07/23/17 08: 14; Admin Dose 25 MG; Start 07/17/17 at 21:00 Diltiazem HCl (Cardizem Iv) 10 mg Q4 PRN IV sustained hr>130 Last administered on 07/21/17 03:48; Admin Dose 10 MG; Start 07/17/17 at 20:30 Enoxaparin Sodium 30 mg 30 mg DAILY SC Last administered on 07/23/17 08:14; Admin Dose 30 MG; Start 07/20/17 at 09:00 Dextrose/Sodium Chloride (D5-1/2ns) 1,000 ml @ 50 mls/hr Q20H IV Last administered on 07/22/17 22:34; Admin Dose 50 MLS/HR; Start 07/22/17 at 22:30; Stop 07/23/17 at 18:29 ARMEN CABALLERO MD Jul 23, 2017 13:11
[2017-07-23] MEDS: ATORVASTATIN 20 MG TAB PO SCH (20:28)
[2017-07-23] MEDS: TAMSULOSIN (SR) 0.4 MG CAP PO SCH (20:28)
[2017-07-24] VITALS (16 sets, daily range): BP systolic 91–152; BP diastolic 51–91; PULSE 36–95; RESP 17–20
[2017-07-24 07:59] LABS: BASOPHILS % 0.1 % (0.0-2.0); EOSINOPHILS # 0.1 10^3/ul (0.0-0.5); EOSINOPHILS % 0.7 % (0.0-7.0); HEMATOCRIT 23.8 % (42.0-52.0); HEMOGLOBIN 7.8 g/dl (14.0-18.0); LYMPHOCYTES # 0.7 10^3/ul (0.8-2.9); LYMPHOCYTES % 7.9 % (15.0-51.0); MEAN CORPUSCULAR HEMOGLOBIN 30.8 pg (29.0-33.0); MEAN CORPUSCULAR HGB CONC 32.8 g/dl (32.0-37.0); MEAN CORPUSCULAR VOLUME 94.1 fl (82.0-101.0); MEAN PLATELET VOLUME 10.1 fl (7.4-10.4); MONOCYTE # 0.9 10^3/ul (0.3-0.9); MONOCYTES % 11.2 % (0.0-11.0); NEUTROPHIL # 6.5 10^3/ul (1.6-7.5); NEUTROPHILS % 78.8 % (39.0-77.0); PLATELET COUNT 309 10^3/UL (140-415); RED BLOOD COUNT 2.53 10^6/ul (4.70-6.10); RED CELL DISTRIBUTION WIDTH 14.9 % (11.5-14.5); WHITE BLOOD COUNT 8.3 10^3/ul (4.8-10.8)
[2017-07-24 08:19] LABS: CALCIUM 7.9 mg/dl (8.4-10.2); CREATININE 3.35 mg/dl (0.61-1.24); POTASSIUM 3.8 mmol/L (3.5-5.1)
[2017-07-24 08:20] LABS: MAGNESIUM 1.7 mg/dl (1.7-2.5)
[2017-07-24] MEDS: DOCUSATE SODIUM 100 MG CAP PO SCH (08:35)
[2017-07-24] MEDS: METOPROLOL 25 MG TAB PO SCH (08:36)
[2017-07-24] MEDS: MEMANTINE 10 MG TAB PO SCH (08:36)
[2017-07-24] MEDS: BUPROPION (SR) 150 MG TAB PO SCH (08:36)
[2017-07-24] MEDS: PANTOPRAZOLE (EC) 40 MG TAB PO SCH (08:36)
[2017-07-24] MEDS: CARBIDOPA/LEVODOPA 25-100 (CR) TAB PO SCH ×3 (08:37→16:54)
[2017-07-24] MEDS ORDERED: APIXABAN 5 MG TABLET PO SCH (09:00)
--- NOTE | 2017-07-24 09:06 | CONS ---
Date/Time of Note Date/Time of Note DATE: 07/24/17 TIME: 09:04 Assessment/Plan Assessment/Plan Additional Assessment/Plan 1. Acute hyperkalemia K 6.0- Resolved 2. TORIN on CKD IV- worsening renal failure- slightly imporved with bicarbonate drip 3. severe metabolic acidosis- s/p HCO3 drip for 2 days 4. H/o CKD IV 5. s/p left hip hemiarthroplasty for left hip fracture 6. Hypertension 7. Parkinson dementia Plan : BUN/Cr slightly better 43/3.35, K normal, off Bicarbonate drip now x 2 days pt pulled out his olmos catheter yesterday, no hematuria will monitor renal function and electrolytes very poor candidate for renal replacement therapy if Cr dont improve due to his age, comorbidiites and bedridden status will follow up Consultation Date/Type/Reason Admit Date/Time Jul 13, 2017 at 12:45 Initial Consult Date 07/20/17 Type of Consultation: NEPHROLOGY Referring Provider: MAGDALENO GUEVARA 24 HR Interval Summary Free Text/Dictation K stable, BUN/Cr slightly better, pt pulled out olmos yesterday, pt little agitated today Am Exam/Review of Systems Vital Signs Vitals Vital Signs Date Time Temp Pulse Resp B/P Pulse Ox O2 Delivery O2 Flow Rate FiO2 07/24/17 08:16 98.1 76 17 122/67 93 07/20/17 20:00 Nasal Cannula 2.0 Intake and Output 07/23/17 07/23/17 07/24/17 15:00 23:00 07:00 Intake Total 0 ml 550 ml Output Total 800 ml Balance -800 ml 550 ml Exam Constitutional: awake, alert, but not oriented Respiratory: congested cough, crackles/rales, diminished breath sounds Cardiovascular: nl pulses, regular rate and rhythm Gastrointestinal: non-tender, soft Musculoskeletal: nl extremities to inspection Extremities: normal pulses Neurological: demented Results Result Diagram: 07/24/17 0659 07/24/17 0659 Results 24 hrs Laboratory Tests Test 07/24/17 06:59 White Blood Count 8.3 Red Blood Count 2.53 L Hemoglobin 7.8 L Hematocrit 23.8 L Mean Corpuscular Volume 94.1 Mean Corpuscular Hemoglobin 30.8 Mean Corpuscular Hemoglobin Concent 32.8 Red Cell Distribution Width 14.9 H Platelet Count 309 Mean Platelet Volume 10.1 Neutrophils % 78.8 H Lymphocytes % 7.9 L Monocytes % 11.2 H Eosinophils % 0.7 Basophils % 0.1 Nucleated Red Blood Cells % 0.0 Neutrophils # 6.5 Lymphocytes # 0.7 L Monocytes # 0.9 Eosinophils # 0.1 Basophils # 0.0 Nucleated Red Blood Cells # 0.0 Sodium Level 139 Potassium Level 3.8 Chloride Level 105 Carbon Dioxide Level 24 Anion Gap 14 Blood Urea Nitrogen 43 H Creatinine 3.35 H Glucose Level 88 Calcium Level 7.9 L Phosphorus Level 4.0 Magnesium Level 1.7 Medications Medications Current Medications Ondansetron HCl (Zofran Inj) 4 mg Q6H PRN IV NAUSEA AND/OR VOMITING; Start at 14:30 Acetaminophen (Tylenol Tab) 650 mg Q6H PRN PO PAIN LEVEL 1-3 OR FEVER Last administered on 07/17/17 22:22; Admin Dose 650 MG; Start 07/13/17 at 14:30 Acetaminophen/ Hydrocodone Bitart ([place] (5/325)) 1 tab Q6H PRN PO MODERATE PAIN LEVEL 4-6 Last administered on 07/16/17 21:22; Admin Dose 1 TAB; Start 07/13/17 at 14:30 Morphine Sulfate (morphine) 2 mg Q4H PRN IV SEVERE PAIN LEVEL 7-10 Last administered on 07/20/17 02:58; Admin Dose 2 MG; Start 07/13/17 at 14:30 Docusate Sodium (Colace) 100 mg Q12H PRN PO CONSTIPATION; Start 07/13/17 at 14 :30 Magnesium Hydroxide (Milk Of Mag) 30 ml DAILY PRN PO CONSTIPATION Last administered on 07/24/17 00:44; Admin Dose 30 ML; Start 07/13/17 at 14:30 Hydralazine HCl (Apresoline) 10 mg Q4H PRN IV SBP>170; Start 07/13/17 at 14:30 Bupropion HCl (Wellbutrin Sr) 150 mg DAILY PO Last administered on 07/24/17 08 :36; Admin Dose 150 MG; Start 07/14/17 at 09:00 Carbidopa/Levodopa (Sinemet Cr (25/ 100)) 1 tab QID PO Last administered on 08:37; Admin Dose 1 TAB; Start 07/13/17 at 17:00 Docusate Sodium (Colace) 100 mg BID PO Last administered on 07/23/17 20:28; Admin Dose 100 MG; Start 07/13/17 at 21:00 Tamsulosin HCl (Flomax) 0.4 mg HS PO Last administered on 07/23/17 20:28; Admin Dose 0.4 MG; Start 07/13/17 at 21:00 Pantoprazole (Protonix Tab) 40 mg DAILY PO Last administered on 07/24/17 08:36 ; Admin Dose 40 MG; Start 07/14/17 at 09:00 Memantine (Namenda) 10 mg BID PO Last administered on 07/24/17 08:36; Admin Dose 10 MG; Start 07/13/17 at 21:00 Atorvastatin Calcium (Lipitor) 20 mg QHS PO Last administered on 07/23/17 20: 28; Admin Dose 20 MG; Start 07/13/17 at 21:00 Acetaminophen/ Hydrocodone Bitart ([place] (5/325)) 1 tab Q4H PRN PO PAIN LEVEL 1 -3; Start 07/17/17 at 12:30 Acetaminophen/ Hydrocodone Bitart ([place] (5/325)) 2 tab Q4H PRN PO PAIN LEVEL 4 -7; Start 07/17/17 at 12:30 Morphine Sulfate (morphine) 3 mg Q3H PRN IV PAIN; Start 07/17/17 at 12:30 Metoprolol Tartrate (Lopressor) 25 mg BID PO Last administered on 07/24/17 08: 36; Admin Dose 25 MG; Start 07/17/17 at 21:00 Diltiazem HCl (Cardizem Iv) 10 mg Q4 PRN IV sustained hr>130 Last administered on 07/21/17 03:48; Admin Dose 10 MG; Start 07/17/17 at 20:30 Apixaban (Eliquis) 2.5 mg DAILY PO Last administered on 07/24/17 08:35; Admin Dose 2.5 MG; Start 07/24/17 at 09:00 ARMEN CABALLERO MD Jul 24, 2017 09:06
[2017-07-24] MEDS ORDERED: SOD CHLORIDE 0.9% 250 ML IV* ONE (09:40)
[2017-07-24] MEDS ORDERED: FUROSEMIDE 20 MG INJ IV ONE (11:00)
[2017-07-24] MEDS: HYDROCODONE/APAP (5/325) TAB PO PRN (11:15)
--- NOTE | 2017-07-24 11:16 | PN ---
Date/Time of Note Date/Time of Note DATE: 07/24/17 TIME: 10:57 Assessment/Plan VTE Prophylaxis VTE Prophylaxis Intervention: other (Eliquis, renal dosing.) Lines/Catheters IV Catheter Type (from Nrs): Peripheral IV Urinary Cath still in place: No Assessment/Plan Assessment/Plan 89-year-old male with: 1. Left hip fracture status post left hemiarthroplasty and IT femoral head. POD #7 Appreciate postop recommendations from Dr. Lilly last week, continue PT. Switched to eliquis renal dosing, 2.5 mg po daily, discussed with Nephrology Appreciate cardiology assistance. Pain control, D/C planning to SNF 2. Acute kidney injury on chronic kidney disease, CKD 4-5, creatinine keeps improving, down to 3.3 today. Metabolic acidosis resolved, electrolyte abnormality resolved. Patient off IV fluids, will transfuse 1 unit of packed red blood cells for acute on chronic anemia. I also ordered Lasix 20 mg IV 1 with blood transfusion. Appreciate recommendations from nephrology, Dr. Rivera, discharge planning to [facility] facility today. Patient has removed his [place] catheter yesterday he now has a condom catheter in place. Off lisinopril in setting of advanced kidney disease. 3. Hypertension. Continue metoprolol. Hydralazine as needed. Cardizem added as needed sinus tachycardia 4. Parkinson's with dementia. Continue home meds. Since last week Patient does have some disorientation but mostly cooperative and Setswana speaking only , off restraints since last week and per speech therapy will start trial of pur ed diet. 5. BPH. Continue Flomax 6. Chronic anemia, acute component postoperatively. Likely secondary to chronic kidney disease. Hemoglobin has been 8.0 or above, over the past few days. Hemoglobin 7.8 today, will transfuse 1 unit of packed red blood cells prior to transfer to [facility] facility. No signs of acute bleeding. Prophylaxis: Lovenox for DVT prophylaxis , Protonix for GI prophylaxis Disposition: 1 unit packed red blood cell transfusion today, transfer to [facility] facility later today or in a.m. at the latest. PT eval today, follow-up further recommendations from nephrology. Also apparently need to readdress CODE STATUS with family. Will do so when they are available. Subjective 24 Hr Interval Summary Free Text/Dictation Patient alert, seems to be a little more oriented today but only remains oriented 1-2 at best. He has mittens on, hemoglobin 7.8 which is around his recent baseline. Will transfuse 1 unit of packed red blood cells. Renal function improving. Plan to transfer to [facility] facility later today or in a.m. Exam/Review of Systems Vital Signs Vitals Vital Signs Date Time Temp Pulse Resp B/P Pulse Ox O2 Delivery O2 Flow Rate FiO2 07/24/17 10:00 98.8 85 17 135/79 93 07/20/17 20:00 Nasal Cannula 2.0 Intake and Output 07/23/17 07/23/17 07/24/17 15:00 23:00 07:00 Intake Total 0 ml 550 ml Output Total 800 ml Balance -800 ml 550 ml Exam Constitutional: alert, frail, oriented (x1) Respiratory: clear to auscultation, normal air movement Cardiovascular: nl pulses, regular rate and rhythm Gastrointestinal: non-tender, soft Musculoskeletal: nl extremities to inspection, other (Status post left hip hemiarthroplasty) Extremities: normal pulses Neurological: POLYSOMNOGRAPHER II-XII intact, confused (But mental status at baseline), nl speech (Only Setswana speaking), other (Generalized weakness, status post left hemiarthroplasty) Results Result Diagram: 07/24/17 0659 07/24/17 0659 Results 24 hrs Laboratory Tests Test 07/24/17 06:59 White Blood Count 8.3 Red Blood Count 2.53 L Hemoglobin 7.8 L Hematocrit 23.8 L Mean Corpuscular Volume 94.1 Mean Corpuscular Hemoglobin 30.8 Mean Corpuscular Hemoglobin Concent 32.8 Red Cell Distribution Width 14.9 H Platelet Count 309 Mean Platelet Volume 10.1 Neutrophils % 78.8 H Lymphocytes % 7.9 L Monocytes % 11.2 H Eosinophils % 0.7 Basophils % 0.1 Nucleated Red Blood Cells % 0.0 Neutrophils # 6.5 Lymphocytes # 0.7 L Monocytes # 0.9 Eosinophils # 0.1 Basophils # 0.0 Nucleated Red Blood Cells # 0.0 Sodium Level 139 Potassium Level 3.8 Chloride Level 105 Carbon Dioxide Level 24 Anion Gap 14 Blood Urea Nitrogen 43 H Creatinine 3.35 H Glucose Level 88 Calcium Level 7.9 L Phosphorus Level 4.0 Magnesium Level 1.7 Medications Medications Current Medications Ondansetron HCl (Zofran Inj) 4 mg Q6H PRN IV NAUSEA AND/OR VOMITING; Start at 14:30 Acetaminophen (Tylenol Tab) 650 mg Q6H PRN PO PAIN LEVEL 1-3 OR FEVER Last administered on 07/17/17 22:22; Admin Dose 650 MG; Start 07/13/17 at 14:30 Acetaminophen/ Hydrocodone Bitart ([place] (5/325)) 1 tab Q6H PRN PO MODERATE PAIN LEVEL 4-6 Last administered on 07/16/17 21:22; Admin Dose 1 TAB; Start 07/13/17 at 14:30 Morphine Sulfate (morphine) 2 mg Q4H PRN IV SEVERE PAIN LEVEL 7-10 Last administered on 07/20/17 02:58; Admin Dose 2 MG; Start 07/13/17 at 14:30 Docusate Sodium (Colace) 100 mg Q12H PRN PO CONSTIPATION; Start 07/13/17 at 14 :30 Magnesium Hydroxide (Milk Of Mag) 30 ml DAILY PRN PO CONSTIPATION Last administered on 07/24/17 00:44; Admin Dose 30 ML; Start 07/13/17 at 14:30 Hydralazine HCl (Apresoline) 10 mg Q4H PRN IV SBP>170; Start 07/13/17 at 14:30 Bupropion HCl (Wellbutrin Sr) 150 mg DAILY PO Last administered on 07/24/17 08 :36; Admin Dose 150 MG; Start 07/14/17 at 09:00 Carbidopa/Levodopa (Sinemet Cr (25/ 100)) 1 tab QID PO Last administered on 08:37; Admin Dose 1 TAB; Start 07/13/17 at 17:00 Docusate Sodium (Colace) 100 mg BID PO Last administered on 07/23/17 20:28; Admin Dose 100 MG; Start 07/13/17 at 21:00 Tamsulosin HCl (Flomax) 0.4 mg HS PO Last administered on 07/23/17 20:28; Admin Dose 0.4 MG; Start 07/13/17 at 21:00 Pantoprazole (Protonix Tab) 40 mg DAILY PO Last administered on 07/24/17 08:36 ; Admin Dose 40 MG; Start 07/14/17 at 09:00 Memantine (Namenda) 10 mg BID PO Last administered on 07/24/17 08:36; Admin Dose 10 MG; Start 07/13/17 at 21:00 Atorvastatin Calcium (Lipitor) 20 mg QHS PO Last administered on 07/23/17 20: 28; Admin Dose 20 MG; Start 07/13/17 at 21:00 Acetaminophen/ Hydrocodone Bitart ([place] (5/325)) 1 tab Q4H PRN PO PAIN LEVEL 1 -3; Start 07/17/17 at 12:30 Acetaminophen/ Hydrocodone Bitart ([place] (5/325)) 2 tab Q4H PRN PO PAIN LEVEL 4 -7; Start 07/17/17 at 12:30 Morphine Sulfate (morphine) 3 mg Q3H PRN IV PAIN; Start 07/17/17 at 12:30 Metoprolol Tartrate (Lopressor) 25 mg BID PO Last administered on 07/24/17 08: 36; Admin Dose 25 MG; Start 07/17/17 at 21:00 Diltiazem HCl (Cardizem Iv) 10 mg Q4 PRN IV sustained hr>130 Last administered on 07/21/17 03:48; Admin Dose 10 MG; Start 07/17/17 at 20:30 Apixaban (Eliquis) 2.5 mg DAILY PO Last administered on 07/24/17 08:35; Admin Dose 2.5 MG; Start 07/24/17 at 09:00 Furosemide (Lasix) 20 mg ONCE ONCE IV ; Start 07/24/17 at 11:00; Stop 07/24/17 at 11:01; Status MAGDALENO KAUFFMAN Jul 24, 2017 11:07
--- NOTE | 2017-07-24 11:50 | PDOCDIS ---
Discharge Instructions CONDITION Patient Condition: Stable HOME CARE INSTRUCTIONS: Special Diet: Pureed to soft diet ACTIVITY: Activity Restrictions: Slowly Increase Activity FOLLOW UP/APPOINTMENTS Follow-up Plan Follow-up with Dr. Lilly in 1 week Follow-up with nephrology as an outpatient, patient with advanced kidney disease Follow-up BMP and renal function at least 2x/[facility]. MAGDALENO GUEVARA Jul 24, 2017 11:50
--- NOTE | 2017-07-24 12:08 | CONS ---
Date/Time of Note Date/Time of Note DATE: 07/24/17 TIME: 12:07 Assessment/Plan Assessment/Plan Additional Assessment/Plan Status post hip surgery 07/17/2017 Paroxysmal tachycardia Preserved ejection fraction Acute on chronic kidney disease Acute blood loss anemia status post blood transfusion -Continue beta-bernice as blood pressure and heart rate permits. Given recurrent anemia requiring blood transfusion, would hold off on aspirin therapy. Consultation Date/Type/Reason Admit Date/Time Jul 13, 2017 at 12:45 Type of Consultation: cv Referring Provider: MAGDALENO GUEVARA 24 HR Interval Summary Free Text/Dictation Patient seen and examined Exam/Review of Systems Vital Signs Vitals Vital Signs Date Time Temp Pulse Resp B/P Pulse Ox O2 Delivery O2 Flow Rate FiO2 07/24/17 11:36 98.9 79 17 97/56 94 07/20/17 20:00 Nasal Cannula 2.0 Intake and Output 07/23/17 07/23/17 07/24/17 15:00 23:00 07:00 Intake Total 0 ml 550 ml Output Total 800 ml Balance -800 ml 550 ml Exam Awake, no apparent distress Head: normocephalic Respiratory: other (Coarse breath sounds bilaterally, no wheezing) Cardiovascular: other (S1-S2 heard), regular rate and rhythm Gastrointestinal: bowel sounds, non-tender, soft Extremities: edema Results Result Diagram: 07/24/17 0659 07/24/17 0659 Results 24 hrs Laboratory Tests Test 07/24/17 06:59 White Blood Count 8.3 Red Blood Count 2.53 L Hemoglobin 7.8 L Hematocrit 23.8 L Mean Corpuscular Volume 94.1 Mean Corpuscular Hemoglobin 30.8 Mean Corpuscular Hemoglobin Concent 32.8 Red Cell Distribution Width 14.9 H Platelet Count 309 Mean Platelet Volume 10.1 Neutrophils % 78.8 H Lymphocytes % 7.9 L Monocytes % 11.2 H Eosinophils % 0.7 Basophils % 0.1 Nucleated Red Blood Cells % 0.0 Neutrophils # 6.5 Lymphocytes # 0.7 L Monocytes # 0.9 Eosinophils # 0.1 Basophils # 0.0 Nucleated Red Blood Cells # 0.0 Sodium Level 139 Potassium Level 3.8 Chloride Level 105 Carbon Dioxide Level 24 Anion Gap 14 Blood Urea Nitrogen 43 H Creatinine 3.35 H Glucose Level 88 Calcium Level 7.9 L Phosphorus Level 4.0 Magnesium Level 1.7 Medications Medications Current Medications Ondansetron HCl (Zofran Inj) 4 mg Q6H PRN IV NAUSEA AND/OR VOMITING; Start at 14:30 Acetaminophen (Tylenol Tab) 650 mg Q6H PRN PO PAIN LEVEL 1-3 OR FEVER Last administered on 07/17/17 22:22; Admin Dose 650 MG; Start 07/13/17 at 14:30 Acetaminophen/ Hydrocodone Bitart ([place] (5/325)) 1 tab Q6H PRN PO MODERATE PAIN LEVEL 4-6 Last administered on 07/24/17 11:15; Admin Dose 1 TAB; Start at 14:30 Morphine Sulfate (morphine) 2 mg Q4H PRN IV SEVERE PAIN LEVEL 7-10 Last administered on 07/20/17 02:58; Admin Dose 2 MG; Start 07/13/17 at 14:30 Docusate Sodium (Colace) 100 mg Q12H PRN PO CONSTIPATION; Start 07/13/17 at 14 :30 Magnesium Hydroxide (Milk Of Mag) 30 ml DAILY PRN PO CONSTIPATION Last administered on 07/24/17 00:44; Admin Dose 30 ML; Start 07/13/17 at 14:30 Hydralazine HCl (Apresoline) 10 mg Q4H PRN IV SBP>170; Start 07/13/17 at 14:30 Bupropion HCl (Wellbutrin Sr) 150 mg DAILY PO Last administered on 07/24/17 08 :36; Admin Dose 150 MG; Start 07/14/17 at 09:00 Carbidopa/Levodopa (Sinemet Cr (25/ 100)) 1 tab QID PO Last administered on 08:37; Admin Dose 1 TAB; Start 07/13/17 at 17:00 Docusate Sodium (Colace) 100 mg BID PO Last administered on 07/23/17 20:28; Admin Dose 100 MG; Start 07/13/17 at 21:00 Tamsulosin HCl (Flomax) 0.4 mg HS PO Last administered on 07/23/17 20:28; Admin Dose 0.4 MG; Start 07/13/17 at 21:00 Pantoprazole (Protonix Tab) 40 mg DAILY PO Last administered on 07/24/17 08:36 ; Admin Dose 40 MG; Start 07/14/17 at 09:00 Memantine (Namenda) 10 mg BID PO Last administered on 07/24/17 08:36; Admin Dose 10 MG; Start 07/13/17 at 21:00 Atorvastatin Calcium (Lipitor) 20 mg QHS PO Last administered on 07/23/17 20: 28; Admin Dose 20 MG; Start 07/13/17 at 21:00 Acetaminophen/ Hydrocodone Bitart ([place] (5/325)) 1 tab Q4H PRN PO PAIN LEVEL 1 -3; Start 07/17/17 at 12:30 Acetaminophen/ Hydrocodone Bitart ([place] (5/325)) 2 tab Q4H PRN PO PAIN LEVEL 4 -7; Start 07/17/17 at 12:30 Morphine Sulfate (morphine) 3 mg Q3H PRN IV PAIN; Start 07/17/17 at 12:30 Metoprolol Tartrate (Lopressor) 25 mg BID PO Last administered on 07/24/17 08: 36; Admin Dose 25 MG; Start 07/17/17 at 21:00 Diltiazem HCl (Cardizem Iv) 10 mg Q4 PRN IV sustained hr>130 Last administered on 07/21/17 03:48; Admin Dose 10 MG; Start 07/17/17 at 20:30 Apixaban (Eliquis) 2.5 mg DAILY PO Last administered on 07/24/17 08:35; Admin Dose 2.5 MG; Start 07/24/17 at 09:00 Dennis Schrader DO Jul 24, 2017 12:08
== END 2017-07-24 20:15 | DRG 470 ==
LOC: E/R 10:49 → MS2 12:45 → TEL 20:39
PROVIDERS: ADMIT Internal Medicine; ATTEND Internal Medicine
PROC: 0SRS0JA Replacement of Left Hip Joint, Femoral Surface with Synthetic Substitute, Uncemented, Open Approach (ICD-10-PCS; principal; 2017-07-13)
PROC: 30233N1 Transfusion of Nonautologous Red Blood Cells into Peripheral Vein, Percutaneous Approach (ICD-10-PCS; 2017-07-15)
DX: S72.012A Unspecified intracapsular fracture of left femur, initial encounter for closed fracture (principal); N17.9 Acute kidney failure, unspecified; G20 Parkinson's disease; E87.5 Hyperkalemia; I12.0 Hypertensive chronic kidney disease with stage 5 chronic kidney disease or end stage renal disease; N18.5 Chronic kidney disease, stage 5; D62 Acute posthemorrhagic anemia; D63.1 Anemia in chronic kidney disease; F02.80 Dementia in other diseases classified elsewhere, unspecified severity, without behavioral disturbance, psychotic disturbance, mood disturbance, and anxiety; N40.0 Benign prostatic hyperplasia without lower urinary tract symptoms; I71.4 Abdominal aortic aneurysm, without rupture; I47.9 Paroxysmal tachycardia, unspecified; W17.89XA Other fall from one level to another, initial encounter; Y92.098 Other place in other non-institutional residence as the place of occurrence of the external cause; Z95.5 Presence of coronary angioplasty implant and graft
CPT/HCPCS: 36430; 36600; 70450; 71010; 71250; 72125; 72170; 72192; 73500; 76775; 80048; 80053; 80061; 80069; 81003; 82570; 82803; 83036; 83735; 84100; 84300; 85014; 85018; 85025; 85610; 85730; 86850; 86900; 86901; 86920; 89190; 92526; 92610; 93005; 93306; 96374; 96375; 97110; 97162; 97530; J1940; J0690; J1644; J1650; J2270; J2370; J2405; J2710; J3010; J3475; J3480; J7040; J7042; J7070; P9016; P9047